=== PATIENT | female | born 1960 | race Caucasian/White ===

== ENCOUNTER 2025-05-30 06:24 | Day surgery (SDC) | payer MEDICARE, SELFPAY ==
[2025-05-30] VITALS (10 sets, daily range): BP systolic 105–148; BP diastolic 42–79; PULSE 67–103; RESP 12–20; TEMP 36.4–37; O2SAT 68–100
--- NOTE | ~2025-05-30 | XR_ITS ---
EXAMINATION: XR retrograde pyelo w/stent LT DATE: 05/30/2025 10:42 INDICATION: Stone at the left ureteropelvic junction TECHNIQUE: 118 images of the abdomen and pelvis were obtained during procedure performed by Dr. Spivey. Radiologist was not present for the imaging or procedure. The amount of fluoroscopy time used during this procedure was 0.4 minutes. Total DAP was 0.433 mGym^2. COMPARISON: CT dated 05/30/2025 FINDINGS: Tobacco Stripper images demonstrate some excreted contrast in the bilateral renal collecting systems, ureters and in the bladder. There appears be some extravasation of contrast in the left perinephric space. Subsequent images demonstrate advancement of a catheter into the left ureter to the renal pelvis with additional injected with no contrast demonstrating some contrast extravasation in the region of the ureteropelvic junction. Final images demonstrate placement of a left intraureteral stent with proximal loop formed in the left renal pelvis. IMPRESSION: 1. Left perinephric contrast extravasation which appears to occur in the region of the ureteropelvic junction which is likely related to previous noted stone at the ureteral pelvic junction. The stone is unable be clearly distinguished would correlate with procedure note as to whether the stone was visualized or extracted. 2. Placement of a left internal ureteral stent with proximal loop in expected position of the left renal pelvis. Reviewed, dictated and finalized at location A. IMPRESSION: 1. Left perinephric contrast extravasation which appears to occur in the region of the ureteropelvic junction which is likely related to previous noted stone at the ureteral pelvic junction. The stone is unable be clearly distinguished w ould correlate with procedure note as to whether the stone was visualized or ex tracted. 2. Placement of a left internal ureteral stent with proximal loop in expected p osition of the left renal pelvis.
--- NOTE | ~2025-05-30 | CT_ITS ---
EXAMINATION: CT abdomen pelvis w con DATE: 05/30/2025 08:04 INDICATION: Left lower quadrant abdominal pain. Left flank pain. Vomiting. TECHNIQUE: Computed tomography (CT) of the abdomen and pelvis was performed with 100 mL Omnipaque 350 intravenous contrast. Automated exposure control and iterative reconstruction technique were employed. The dose-length product was 280.05 mGy-cm. COMPARISON: None. FINDINGS: The visualized portions of lung bases demonstrate mild atelectasis. No pleural effusion. The heart size is normal. No pericardial effusion. There is a small sliding hiatal hernia. There is a 1.5 cm cyst in the liver. There are changes of cholecystectomy. The spleen, pancreas, adrenal glands, and right kidney are normal. There is a delayed left-sided contrast nephrogram. There is mild left hydronephrosis. There are 3 stones in left kidney measuring up to 3 mm. There is an 8 mm stone at left ureteropelvic junction. There is diverticulosis of the colon without evidence of diverticulitis. There are no dilated loops of bowel. The appendix is normal. There are no pathologically enlarged lymph nodes. There is no free intraperitoneal fluid. There is mild thoracic and lumbar spondylosis. IMPRESSION: 1. 8 mm stone at left ureteropelvic junction with mild left hydronephrosis. 2. Nonobstructing left kidney stones. Reviewed, dictated and finalized at location E.
[2025-05-30] MEDS: SODIUM CHLORIDE 0.9% IV 1,000 ML 999 ML IV CONT (06:58)
[2025-05-30] MEDS: ONDANSETRON INJ 4 MG/2 ML VIAL IV PUSH (06:59)
[2025-05-30 07:08] LABS: Hematocrit 41.3 % (37.0-47.0); Hemoglobin 13.5 g/dL (12.0-15.0); Immature Granulocyte Percent A 0.4 % (0-0.5); Lymphocytes Absolute Auto 1.32 K/mm3 (0.9-3.2); Mean Corpuscular HGB Conc 32.7 g/dl (32-36); Mean Corpuscular Hemoglobin 30.1 pg (26-34); Mean Corpuscular Volume 92.0 fl (80-100); Nucleated Red Blood Cells Absolute Auto 0.000 K/mm3 (0.0-0.012); Nucleated Red Blood Cells Perc 0.0 % (0.0-0.2); Platelet Count Result 261 k/mm3 (150-375); Red Blood Count 4.49 M/mm3 (4.2-5.4); White Blood Count 10.7 K/mm3 (4.5-10.0)
--- NOTE | 2025-05-30 07:16 | ED.ABDPAIN ---
HPI - Abdominal Pain General Chief Complaint: Abdominal Pain Stated Complaint: LLQ abd pain Time Seen by Provider: 05/30/25 06:57 Source: patient and family Mode of arrival: ambulatory Limitations: no limitations History of Present Illness HPI narrative: Patient presents with report of acute onset left lower quadrant abdominal pain starting approximately 2:00 a.m.. She notes that the pain has been intermittent and occurring in this location as well as in her left flank though now seems to be occurring in both locations simultaneously. She said her bowel movements have not been very good recently. Her last colonoscopy was more than 10 years ago but the she did recently undergo Cologuard. She has been having trouble passing gas although when this 1st started having pain she thought she just needed to pass gas and had been walking around try to help that. She has had multiple episodes of emesis which she describes as orange and brownish in color but denies any coffee-grounds. Denies any diarrhea, hematuria or dysuria. She says she may have trace hematuria. She has a history of kidney stone on the left at which time she had marked hematuria. She says this pain feels slightly similar although it had not been intense when she had a kidney stone before. Previous abdominal surgeries include coli cystectomy. She takes 81 mg aspirin but otherwise is not on anticoagulation. Last oral intake was dinner at 9:00 p.m. when she had a turkey sandwich. Related Data Allergies Allergy/AdvReac Type Severity Reaction Status Date / Time amoxicillin Allergy Unknown Other Verified 05/30/25 06:29 cephalexin Allergy Unknown Other Verified 05/30/25 06:29 erythromycin base Allergy Unknown Other Verified 05/30/25 06:29 Sulfa (Sulfonamide Allergy Unknown Other Verified 05/30/25 06:29 Antibiotics) tetracycline Allergy Unknown Unknown Verified 05/30/25 06:29 [facility] Past Medical History Medical History Heart disease High cholesterol History of cardiovascular stress test Status post hysteroscopy removal of polyp in endometrium and DNC, benign; also 06/24/17 H/O Graves' disease radioactive iodine Tx 1995 or 1996 Surgical History Surgical History S/P colonoscopy Hx of cholecystectomy 1999 S/P lumpectomy, left breast benign, 1992 or 1993 Exam Narrative: GENERAL: Well-appearing, well-nourished, in mild to moderate acute distress. HEAD: Normocephalic, atraumatic. EYES: Non injected, non icteric ENT: Nares clear, no rhinorrhea or epistaxis. Gross auditory acuity intact. NECK: Supple. No meningismus. CHEST: Speaking in full sentences. No respiratory distress. HEART: Regular rate and rhythm. . ABDOMEN: Soft, nondistended. Tenderness palpation left lower quadrant with some guarding. Not peritoneal EXTREMITIES: Normal range of motion. No lower extremity edema. SKIN: Warm, dry, no rash. NEURO: No focal deficits. Alert and oriented. Answering questions. Following commands. Normal speech without aphasia or dysarthria. PSYCH: Normal mood and affect. Course Vital Signs Vital signs: Vital Signs Temperature 97.6 F 05/30/25 06:31 Pulse Rate 67 05/30/25 06:31 Respiratory Rate 18 05/30/25 06:31 Blood Pressure 105/42 L 05/30/25 06:31 Pulse Oximetry 98 05/30/25 06:31 Oxygen Delivery Room Air 05/30/25 06:31 Temperature 98.6 F 05/30/25 10:10 Pulse Rate 101 H 05/30/25 10:10 Respiratory Rate 12 05/30/25 07:36 Blood Pressure 143/79 H 05/30/25 10:10 Pulse Oximetry 100 05/30/25 10:10 Oxygen Delivery Room Air 05/30/25 10:10 MDM - Abdominal Pain MDM Narrative Medical decision making narrative: Patient presents with acute onset left lower quadrant and left flank pain. In the emergency department she is afebrile, her vital signs are notable for low diastolic blood pressure, mean arterial pressure 63 mm Hg. It is improved at bedside at the time of my exam (154/108, MAP 118mmHg). IV fluids and Zofran initially ordered from triage. CBC with a mild leukocytosis. INR 1.0. Normal lactic acid. Analgesic medication CT scan ordered. Initially 4 mg morphine had been ordered although patient reports that she has never received this before and she is nervous. Discuss that pain control is important especially given the need for CT imaging inability to hold still for this. Discussed with nurse at bedside and patient received 2 mg morphine to start that if additional pain control is necessary, additional 2 mg. Isolated azotemia with an elevated BUN however creatinine is within normal limits. No prior for comparison. Urinalysis turbid but with only microscopic hematuria. Still having pain; dilaudid ordered. Patient informed on findings on CT. Spoke with Urology PA working with Dr Spivey at 9:05am via phone. PA did come to ED and discuss with patient at bedside. Plan is for ureteral stenting this morning/afternoon with Dr Spivey, likely home after. Will let me know if tamsulosin and/or ketorolac this morning. No need for additional analgesic medication right now as patient is comfortable. Patient taken to the OR. Differential Diagnosis Differential diagnosis: Likely abdominal pain, calculus of kidney, constipation, diverticulitis, small bowel obstruction and other (UTI, pyelonephritis, renal abscess) Lab Data Attestation: I reviewed the patient's lab results. Lab results narrative: CRP and lipase within normal limits 05/30/25 06:55 05/30/25 06:55 Labs: Lab Results 05/30/25 Range/Units 06:55 WBC 10.7 H (4.5-10.0) K/mm3 RBC 4.49 (4.2-5.4) M/mm3 Hgb 13.5 (12.0-15.0) g/dL Hct 41.3 (37.0-47.0) % MCV 92.0 (80-100) fl MCH 30.1 (26-34) pg MCHC 32.7 (32-36) g/dl RDW 13.2 (11.5-14.5) % Plt Count 261 (150-375) k/mm3 MPV 9.5 (7.4-10.4) fl Immature Gran % (Auto) 0.4 (0-0.5) % Neut % (Auto) 82.0 H (45.5-73.1) % Lymph % (Auto) 12.3 L (18.3-44.2) % [place] % (Auto) 4.6 (2.6-8.5) % Eos % (Auto) 0.3 (0-4.4) % Baso % (Auto) 0.4 (0.2-1.2) % Lymph # (Auto) 1.32 (0.9-3.2) K/mm3 [place] # (Auto) 0.5 (0.1-0.6) K/mm3 Eos # (Auto) 0.0 (0-0.3) K/mm3 Baso # (Auto) 0.0 (0.0-0.1) K/mm3 Abs Immat Gran (auto) 0.04 H (0.00-0.031) K/mm3 Absolute Neuts (auto) 8.8 H (1.3-6.7) K/mm3 Absolute Nucleated RBC 0.000 (0.0-0.012) K/mm3 Nucleated RBC % 0.0 (0.0-0.2) % PT 12.9 (11.1-14.7) Seconds INR 1.0 APTT 24.5 (22.3-36.8) Seconds Sodium 139 (137-145) mmol/L Potassium 3.7 (3.4-5.0) mmol/L Chloride 106 (98-107) mmol/L Carbon Dioxide 25 (22-30) mmol/L Anion Gap 8 (4-12) mmol/L BUN 27 H (7-17) mg/dL Creatinine 0.96 (0.7-1.0) mg/dL Estim Creat Clear Calc 43 ml/min Estimated GFR 58 L (59 - ) Glucose 127 H (65-110) mg/dL Lactic Acid 1.6 (0.7-2.0) mmol/L Calcium 9.5 (8.4-10.2) mg/dL Magnesium 2.0 (1.6-2.3) mg/dL Total Bilirubin 0.3 (0.2-1.3) mg/dL AST 32 (14-36) U/L ALT 23 (6-35) U/L Alkaline Phosphatase 87 (38-126) U/L C-Reactive Protein < 0.5 (<1.0) mg/dL Total Protein 6.6 (6.3-8.2) g/dL Albumin 4.1 (3.5-5.1) g/dL Lipase 171 (23-300) U/L Urine Color Yellow (Yellow) Urine Appearance Turbid H (Clear) Urine pH 8.0 (5.0-9.0) Ur Specific [place] 1.013 (1.001-1.035) Urine Protein Negative (Negative) mg/dL Urine Glucose (UA) Negative (Negative) mg/dL Urine Ketones Negative (Negative) mg/dL Ur Blood (Man) Trace (Negative) Urine Nitrate Negative (Negative) Urine Bilirubin Negative (Negative) Urine Urobilinogen 0.2 (<2.0) mg/dL Leukocyte Esterase Rfl Negative (Negative) [place]/UL Urine RBC 3-5 H (0-2) /hpf Urine WBC 0-5 (0-3) /hpf Ur Squamous Epith Cells None seen (Few) /hpf Urine Bacteria None seen /hpf Urine Casts 0-2 Imaging Data Radiologist's impression: ITS Impressions Abdomen/Pelvis CT 05/30/25 08:21 IMPRESSION: 1. 8 mm stone at left ureteropelvic junction with mild left hydronephrosis. 2. Nonobstructing left kidney stones. Discharge Plan Discharge Clinical Impression: Acute left lower quadrant pain, Azotemia, Left flank pain, Microscopic hematuria, Ureteropelvic junction calculus, Hydronephrosis, left Patient Disposition: Still a Patient Condition: Stable
[2025-05-30 07:19] LABS: INR 1.0; Prothrombin Time 12.9 Seconds (11.1-14.7)
[2025-05-30 07:20] LABS: Partial Thromboplastin Time 24.5 Seconds (22.3-36.8)
[2025-05-30] MEDS: MORPHINE SULFATE (*CRX) 4 MG/ML INJ IV PUSH (07:36)
--- NOTE | 2025-05-30 07:36 | PC.NURSE ---
Patient requested to speak to Dr. Conley about morphine. Dr. Conley gave verbal order to give 2mg instead of 4mg to start, give the other 2mg if patient requests.
[2025-05-30 07:42] LABS: Alanine Aminotransferase 23 U/L (6-35); Albumin Level 4.1 g/dL (3.5-5.1); Alkaline Phosphatase 87 U/L (38-126); Anion Gap 8 mmol/L (4-12); Aspartate Amino Transferase 32 U/L (14-36); Bilirubin,Total 0.3 mg/dL (0.2-1.3); Blood Urea Nitrogen 27 mg/dL (7-17); CRP < 0.5 mg/dL (<1.0); Calcium 9.5 mg/dL (8.4-10.2); Carbon Dioxide 25 mmol/L (22-30); Chloride 106 mmol/L (98-107); Estimated CRCL calculation 43 ml/min; Estimated Glomerular Filt Rate 58; Glucose 127 mg/dL (65-110); Lipase 171 U/L (23-300); Magnesium 2.0 mg/dL (1.6-2.3); Potassium 3.7 mmol/L (3.4-5.0); Sodium 139 mmol/L (137-145); Total Protein 6.6 g/dL (6.3-8.2)
[2025-05-30 07:46] LABS: Add Urine Microscopic? YES; Appearance Urine Turbid (Clear); Glucose Urine UA Negative (Negative); Leukocyte Esterase Ur Negative LEU/UL (Negative); Nitrate Urine Negative (Negative); Non Pathogenic Casts 0-2; Specific Grav Ur 1.013 (1.001-1.035)
--- NOTE | 2025-05-30 08:12 | PC.NURSE ---
Patient requested 2mg of morphine from order.
[2025-05-30] MEDS: ACETAMINOPHEN 500 MG TABLET 1000 MG PO (08:27)
--- OUTSIDE RECORDS SUMMARY | 2025-05-30 08:47 | XMS_ITS | Encounter Summary ---
Author Organization [facility] Address [address] [place] [address] Care Team Providers Care Artificial Log Machine Operator Name Role Phone Carmen Robin MD Primary Care Provider [phone] Encounter Details Date Type Department Care Team (Late st Contact Info) Description 05/30/2000 Outpatient Historical [facility] - [facility] [address] [facility] [address] [place] [address] Wili Garcia MD [address] [facility] [address] [place] [address] Social History Tobacco Use Types Packs/Day Years Used Date Smoking Tobacco: Never Assessed Comments Unknown Sex and Gender Information Value Date Recorded Sex Assigned at Not on file Legal Sex Female 3:30 AM ASSEMBLER CAMPER Gender Identity Not on file Sexual Orientation Not on file documented as of this encounter Plan of Treatment Upcoming Encounters Date Type Department Care Team (Late st Contact Info) Description 10/24/2025 11:20 AM CDT Office Visit [facility] [address] [address] Carmen Robin MD [address] [place] [phone] documented as of this encounter Visit Diagnoses Not on filedocumented in this encounter Care Teams Artificial Log Machine Operator Relationship Specialty Start Date End Date Carmen Robin MD [address] [place] [phone] PCP - General Family Practice 10/16/23 documented as of this encounter
--- OUTSIDE RECORDS SUMMARY | 2025-05-30 08:47 | XMS_ITS | Encounter Summary ---
Author Organization [facility] Address [address] [place] [address] Care Team Providers Care Ice Cream Truck Driver Name Role Phone Carmen Robin MD Primary Care Provider [phone] Encounter Details Date Type Department Care Team (Late Contact Info) Description 06/21/1999 Outpatient Historical [facility] Internal [facility] - [facility] [address] [facility] [address] [place] [address] Wili Garcia MD [address] [facility] [address] [place] [address] Social History Tobacco Use Types Packs/Day Years Used Date Smoking Tobacco: Never Assessed Comments Unknown Sex and Gender Information Value Date Recorded Sex Assigned at Not on file Legal Sex Female 3:30 AM PEDIATRIC ASSISTANT Gender Identity Not on file Sexual Orientation Not on file documented as of this encounter Plan of Treatment Upcoming Encounters Date Type Department Care Team (Late st Contact Info) Description 10/24/2025 11:20 AM CDT Office Visit [facility] [address] [address] Carmen Robin MD [address] [place] [phone] documented as of this encounter Visit Diagnoses Not on filedocumented in this encounter Care Teams Ice Cream Truck Driver Relationship Specialty Start Date End Date Carmen Robin MD [address] [place] [phone] PCP - General Family Practice 10/16/23 documented as of this encounter
--- OUTSIDE RECORDS SUMMARY | 2025-05-30 08:47 | XMS_ITS | Encounter Summary ---
Author Organization [facility] Address [address] [place] [address] Care Team Providers Care Loss Prevention Auditor Name Role Phone Carmen Robin MD Primary Care Provider [phone] Encounter Details Date Type Department Care Team (Late Contact Info) Description 07/05/1999 Outpatient Historical [facility] Internal Medicine - [facility] [address] [place] [address] Wili Garcia MD [address] [place] [phone] Social History Tobacco Use Types Packs/Day Years Used Date Smoking Tobacco: Never Assessed Comments Unknown Sex and Gender Information Value Date Recorded Sex Assigned at Not on file Legal Sex Female 3:30 AM MARRIAGE AND FAMILY COUNSELOR Gender Identity Not on file Sexual Orientation Not on file documented as of this encounter Plan of Treatment Upcoming Encounters Date Type Department Care Team (Late st Contact Info) Description 10/24/2025 11:20 AM CDT Office Visit [facility] Primary Care [address] [address] Carmen Robin MD [address] [place] [phone] documented as of this encounter Visit Diagnoses Not on filedocumented in this encounter Care Teams Loss Prevention Auditor Relationship Specialty Start Date End Date Carmen Robin MD [address] [place] [phone] PCP - General Family Practice 10/16/23 documented as of this encounter
--- OUTSIDE RECORDS SUMMARY | 2025-05-30 08:47 | XMS_ITS | Clinical Summary ---
Author Organization [facility] Address [address] [place] [address] Care Team Providers Care Advertising Campaign Manager Name Role Phone Unavailable Primary Care Provider Unavailabl e Source Comments [facility],non-owned Affiliates and Associated Physician Practices is amultiple site organization consisting of ambulatory clinics and hospital sitesin [place], [place], [place] and [place]. This disclosure is being madepursuant to the Care Everywhere program and may not contain all information available regarding this patient. 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 Gender Identity Not on file Sexual Orientation Not on file Plan of Treatment Health Maintenance Due Date Last Done Comments BONE DENSITY TESTING 1959 COLOGUARD (AGES 45-75) - COL ON CA SCREENING 1959 COLON MONITORING 1959 COLONOSCOPY - COLON CA SCREENING 1959 CT COLONOGRAPHY - COLON CA SCREENING 1959 Colorectal Cancer Screening 1959 FIT - COLON CA SCREENING 1959 FLEX SIG - COLON CA SCREENING 1959 LIPID TESTING 1959 MAMMOGRAM 1959 HIV SCREENING 1974 HEPATITIS C SCREENING 07/15/1977 DTAP/TDAP/TD VACCINES (1 - Tdap) 1978 PNEUMOCOCCAL VACCINE 50+ (1 of 1 - PCV) 2009 ZOSTER VACCINE (1 of 2) 2009 DEPRESSION SCREENING 08/18/2024 COVID-19 VACCINE (1 - 2023-2 5 season) 2025 INFLUENZA VACCINE (#1) 2025 Respiratory Syncytial Virus (RSV) Vaccine Pt: or over 60 yrs (1 - 1-dose 75+ series) 2034 HEPATITIS B VACCINE Aged Out No longe r eligible based on patient's age to complete this topic HIB VACCINE Aged Out No longer eligi ble based on patient's age to complete this topic HPV VACCINE Aged Out No longer eligi ble based on patient's age to complete this topic MENINGOCOCCAL (Group B) VACC INE SHARED DECISION-MAKING Aged Out No longer eligibl e based on patient's age to complete this topic MENINGOCOCCAL GROUPS A/C/Y/W VACCINE Aged Out No longer eligible b ased on patient's age to complete this topic
--- OUTSIDE RECORDS SUMMARY | 2025-05-30 08:47 | XMS_ITS | Encounter Summary ---
Author Organization [facility] Address [address] [place] [address] Care Team Providers Care Regulatory Consultant Name Role Phone Carmen Robin MD Primary Care Provider [phone] Encounter Details Date Type Department Care Team (Late Contact Info) Description 09/20/1999 Outpatient Historical [facility] Internal Medicine - [facility] [address] [place] [address] Wili Garcia MD [address] [facility] [address] [place] [phone] Social History Tobacco Use Types Packs/Day Years Used Date Smoking Tobacco: Never Assessed Comments Unknown Sex and Gender Information Value Date Recorded Sex Assigned at Not on file 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 Gender Identity Not on file Sexual Orientation Not on file documented as of this encounter Plan of Treatment Upcoming Encounters Date Type Department Care Team (Late st Contact Info) Description 10/24/2025 11:20 AM CDT Office Visit [facility] Primary Care [address] [phone] Carmen Robin MD [address] [place] [phone] documented as of this encounter Visit Diagnoses Not on filedocumented in this encounter Care Teams Regulatory Consultant Relationship Specialty Start Date End Date Carmen Robin MD [address] [place] [phone] PCP - General Family Practice 10/16/23 documented as of this encounter
--- OUTSIDE RECORDS SUMMARY | 2025-05-30 08:47 | XMS_ITS | Encounter Summary ---
Author Organization [facility] Address [address] [place] [address] Care Team Providers Care Model Maker Name Role Phone Carmen Robin MD Primary Care Provider [phone] Encounter Details Date Type Department Care Team (Late Contact Info) Description 09/01/2024 Results Follow-Up [facility] [address] [place] [address] Carmen Robin MD [address] [place] [phone] MAMMO 3D LARRY SCREEN BILAT W OR WO CAD Social History Tobacco Use Types Packs/Day Years Used Date Smoking Tobacco: Never Smokeless Tobacco: Never Comments:Never smoked. Alcohol Use Standard Drinks/Week Comments Yes 0 (1 standard drink = 0.6 oz pure alcohol) Occasionally glass of wine / kian (1 every few months). 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 Gender Identity Not on file Sexual Orientation Not on file Occupation Industry Job Start Date Job End Date Not on file Not on file Not on file Not on file documented as of this encounter Plan of Treatment Upcoming Encounters Date Type Department Care Team (Late st Contact Info) Description 10/24/2025 11:20 AM CDT Office Visit [facility] [address] [place] [address] Carmen Robin MD [address] [place] [phone] documented as of this encounter Visit Diagnoses Not on filedocumented in this encounter Care Teams Model Maker Relationship Specialty Start Date End Date Carmen Robin MD [address] [place] [phone] PCP - General Family Practice 10/16/23 documented as of this encounter
--- OUTSIDE RECORDS SUMMARY | 2025-05-30 08:47 | XMS_ITS | Encounter Summary ---
Author Organization [facility] Address 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 Gender Identity Not on file Sexual Orientation Not on file documented as of this encounter Plan of Treatment Upcoming Encounters Date Type Department Care Team (Late st Contact Info) Description 10/24/2025 11:20 AM CDT Office Visit [facility] Primary [facility] [address] [address] Carmen Robin MD [address] [place] [phone] documented as of this encounter Visit Diagnoses Not on filedocumented in this encounter Care Teams Funeral Car Chauffeur Relationship Specialty Start Date End Date Carmen Robin MD [address] [place] [phone] PCP - General Family Practice 10/16/23 documented as of this encounter
--- OUTSIDE RECORDS SUMMARY | 2025-05-30 08:48 | XMS_ITS | Clinical Summary ---
Author Organization [facility] Address [address] [facility] [address] [facility] [place] [address] Care Team Providers Care Odd Job Worker Name Role Phone Pablo Morales MD Primary Care Provider [phone] Allergies Active Allergy Reactions Criticality Noted Date Comments Amoxicillin Cephalexin Rash Medium 01/30/2018 Erythromycin Unknown 09/07/2012 Penicillins Sulfa (Sulfonamide Antibiotics) Rash Medium 01/16 Tetracycline Medications aspirin 81 mg tablet Active omega 6-fsw-pod-fish oil 100-160-1,000 mg capsule Active SYNTHROID 75 mcg tablet 8 Active liothyronine (CYTOMEL) 5 mcg tablet 8 Active multivitamin tabletIndicatio ns:Vitamin Deficiency Prevention Active ascorbic acid (VITAMIN C) 500 mg tablet,chewable Acti ve vitamin E (AQUASOL E) 100 unit capsule Active vit D3-vit D-ysclkvolu-mrk s [phone] ommc-itc-vy-mg tablet Take by mouth. Activ e coenzyme Q10 10 mg capsule Take 1 capsule (10 mg total) by mouth daily Active DIINDOLYLMETHAN E, BULK, MISC DIM supplement capsules BID PO Active DivigeL 1.25 mg/1.25 gram (0.1 %) gel in packet APPLY 1 PACKET TOPICALLY TO THE AFFECTED AREA DAILY 1 Active ezetimibe (ZETIA) 10 mg tablet Take 1 tablet (10 mg total) by mouth daily 2 Active lutein 20 mg tablet mg, tablet(s), 0 1 Active acetaminophen (TYLENOL) 500 mg tablet Take 2 tablets (1,000 mg total) by mouth every 6 (six) hours as needed 3 Active Ca carb-D3-mag xh-zso-aoku-Zn (Caltrate-D3 Plus Minerals) 300 mg-20 mcg- 25 mg-0.5 mg tablet Take 2 tablets by mouth daily 3 Active DOCOSAHEXAENOIC ACID ORAL Take 1 capsule by mouth daily 3 Active Repatha SureClick 140 mg/mL pen injector ADMINISTER 1 ML UNDER THE SKIN EVERY 14 DAYS 3 Active ibuprofen 200 mg tab/cap Take 2 tablet/capsule (400 mg total) by mouth 3 (three) times a day as needed 3 Active krill oil 500 mg capsule Take 1,500 mg by mouth daily 3 Active mv,Ca,min-folic acid-vit K1 (One-A-Day Women's 50 Plus) 400-20 mcg tablet Take 1 tablet by mouth daily 3 Active protein powder Take 2 Scoops by mouth daily 3 Active raloxifene (EVISTA) 60 mg tablet Take 1 tablet (60 mg total) by mouth daily 2 Active zinc gluconate 50 mg tablet Take 1 tablet (50 mg total) by mouth daily 3 Active FIRST-PROGESTER ONE VGS 50 VAGL Take 50 mg by mouth daily 3 Active calcium carbonate-vitam in D3 (CALTRATE 600 + D) 1500 mg (600 mg elemental) -400 units per tablet 4 Active latanoprost (XALATAN) 0.005 % ophthalmic solution Administer 1 drop into both eyes nightly 7.5 mL 5 Active Active Problems Problem Noted Date Diagnosed Date 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 S/p DAVEY. CTM Punctate keratopathy 11/05/2021 Assessment & Plan (11/05/2021 2:10 PM CDT): Mild, vision symptoms resolved with pinhole. Rec ATs PRN History of COVID-19 08/14/2021 Hypothyroidism 08/14/2021 Primary open angle glaucoma (POAG) of both eyes, mild stage 01/30/2018 Assessment & Plan (01/31/2025 2:39 PM CDT): On 1 class Denies concerns HVF OU stable OCT OU stable Follow 6 months DFE Assessment & Plan (08/02/2024 4:18 PM REVIEW TRAINER): POAG OU Denies concerns IOP at goal Follow 6 months with HVF/OCT OU Assessment & Plan (12/15/2023 8:22 PM CDT): IOP at goal Testing stable Continue 1 class OU Follow 8 months for IOP check Assessment & Plan (06/02/2023 4:46 PM CDT): Mild POAG OU - IOP at goal on 1 class - Last visit w/ OCT OU stable from 2020 - Last visit w/ HVF OU stable without peripheral vision defect Plan - follow-up 6 months with OCT OU and HVF 24-2 OU - CCM Assessment & Plan (11/18/2022 4:23 PM CDT): Mild POAG OU - IOP at goal on 1 class - OCT OU stable from 2020 - HVF OU stable without peripheral vision defect - follow 6 months with DFE Assessment & Plan (05/20/2022 2:34 PM CDT): POAG OU - doing well - IOP at goal - follow on 1 class - follow 6 months with HVF/OCT OU Assessment & Plan (11/05/2021 2:22 PM CDT): Tmax 20/19,+ FHx, prior progression of OCT thinning, Goal likely <18 Stable full HVF, OCT stable 5+ years, at goal on 1 class Continue xal QHS RTC 6 months for IOP check, 1 year w/ HVF and OCT RNFL Assessment & Plan (05/01/2021 6:10 PM CDT): IOP at goal both eyes on 1 class DFE stable Follow 6 months with HVF OU, sooner for concerns Assessment & Plan (10/23/2020 6:31 PM REVIEW TRAINER): HVF remains normal OCT with concern for possible progression Given IOP at goal and full field, ok to continue to observe for now Plan to continue 1 class, follow 6 months with DFE Testing anually Drops: - Latanoprost QHS OU Assessment & Plan (04/10/2020 3:48 PM CDT): Patient returns for 6 MO with Alanis visual field (HVF) normal both eyes (OU). OCT some thinning both eyes. Asymmetry of disc size. Some slight change to OCT over past 3-4 years. Questionably progressive. IOP's acceptable on 1 class today Follow for now Follow with OCT/HVF in 6 months Drops: - Latanoprost QHS OU Assessment & Plan (07/06/2019 10:44 AM REVIEW TRAINER): No e/o AMD OU Assessment & Plan (06/10/2019 10:18 AM CDT): Patient returns for 6 MO with Alanis visual field (HVF) normal both eyes (OU). OCT some thinning both eyes. Asymmetry of disc size. Some slight change to OCT over past 3-4 years. Questionably progressive. IOP's acceptable on 1 class () Patient will follow with Apte soon. Drops: - Latanoprost QHS OU Assessment & Plan (01/21/2019 12:31 PM CDT): Patient returns today for dilated exam. No change. IOP's are stable on 1 class, CPM. DROPS: - Latanoprost at bedtime (QHS) I have examined the patient and agree with the resident/fellow's findings and plan as documented. Mark Anthony Byers MD Family history of coronary artery disease 2016 Family history of breast cancer 04/29/2013 Overview (11/05/2021): Cousin from breast cancer, aunt breast cancer survivor (cousin's mother). Erika's BRC-[address] Test [address] Vinicius Aguillon. Hx of Graves' disease 09/07/2012 Overview (11/05/2021): Synthroid 75 mcg daily, DAVEY treatment 1995 Senile incipient cataract of both eyes 0 Assessment & Plan (01/31/2025 2:39 PM CDT): BAT 20/25 - not yet VS Assessment & Plan (08/02/2024 4:18 PM REVIEW TRAINER): Not yet VS Assessment & Plan (06/02/2023 4:47 PM CDT): - Early glare symptoms - BAT to 20/30 OD and 20/25 OS. Not a surgical candidate as indicated by testing Plan - F/u in 6m w/ HVF 24-2 and OCT nerve OU - BAT next visit Assessment & Plan (11/18/2022 4:24 PM CDT): Early glare symptoms Continue to monitor for now BAT next visit Assessment & Plan (05/20/2022 2:34 PM CDT): Not yet VS Assessment & Plan (11/05/2021 2:01 PM CDT): NVS CTM Assessment & Plan (05/01/2021 6:10 PM CDT): BAT not significant at this time Assessment & Plan (07/06/2019 10:28 AM REVIEW TRAINER): Mild, NVS Observe Assessment & Plan (06/10/2019 10:17 AM CDT): Becoming visually significant. Patient is noticing halos around headlights when driving at night. Do not recommend sx at this time. Suggest trying monovision contacts (soft, disposable) before trying Lasik. CLARA Espinosa scribing for, and in the presence of, Mark Anthony Byers MD Assessment & Plan (01/20/2019 1:13 PM CDT): NVS CTM Medical History Medical History Date Comments Glaucoma Cataract Thyroid activity decreased Hyperlipemia Family History Medical History Relation Name Comments Coronary artery disease Father Chayo nary artery disease; Hyperlipidemia Father Hyperlipidemi a; Glaucoma Maternal Grandmother Blindness Mother Coronary artery disease Mother Chayo nary artery disease; Glaucoma Mother Hyperlipidemia Mother Hyperlipidemi a; Hypertension Mother Hypertension; Macular degeneration Mother Relation Name Status Comments Father Maternal Grandmother Mother Social History Tobacco Use Types Packs/Day Years Used Date Smoking Tobacco: Never Smokeless Tobacco: Never Comments Unknown Sex and Gender Information Value Date Recorded Sex Assigned at Not on file Legal Sex Female 8:22 PM REVIEW TRAINER Gender Identity Female 01/26/2025 10:40 PM CDT Sexual Orientation Straight 01/26/2025 10 :40 PM CDT Occupation Industry Job Start Date Job End Date Retired Not on file Not on file Not on file Obstetrics History Plan of Treatment Health Maintenance Due Date Last Done Comments Cervical Cancer Screening 1959 Colon Cancer Screening-Colonoscopy 1959 Depression Screening 1959 Fall Risk Assessment 1959 Hepatitis C Screening 1959 Hepatitis B Screening 1977 Pneumococcal vaccine 65+ (1 of 1 - PCV) 2009 Well Visit 65+ 2024 Covid-19 Vaccine (5 - 2024-2 6 season) 2025 08/06/2023, 01/07/2022, 10/28/2020, Additional history exists Influenza Vaccine (#1) 2025 Breast Cancer Screening-Mammogram 08/30/2025 08/30/2024, 08/30/2024, 12/25/2021 Osteoporosis Screening-Bone Density Scan 08/30/2026 08/30/2024, 08/30/2024, 07/06/2020, Additional history exists DTaP/Tdap/Td Vaccine (2 - Td or Tdap) 11/10/2031 11/09/2021 Zoster Vaccine Completed 11/22/2024, 05/30/[id number] Care Teams Odd Job Worker Relationship Specialty Start Date End Date Pablo Morales MD PCP - General 12/06/16
--- OUTSIDE RECORDS SUMMARY | 2025-05-30 08:48 | XMS_ITS | Clinical Summary ---
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 Gender Identity Not on file Sexual Orientation Not on file Plan of Treatment Health Maintenance Due Date Last Done Comments Colorectal Cancer Screening Colonoscopy (10 Years) 1959 Hepatitis C 1977 DTaP, Tdap and Td Vaccines ( 1 - Tdap) 1978 Mammogram Screening 1999 Pneumococcal Vaccine: 50+ Years (1 of 1 - PCV) 2009 Zoster Vaccines (1 of 2) 2009 Dexa Scan (General) 2024 COVID-19 Vaccine (3 - 2024-2 6 season) 2025 10/28/2020, 10/07/2020 Influenza Adult (#1) 2025 RSV Immunization or 60+ Years (1 - 1-dose 75+ series) 2034 Meningococcal B Vaccine Aged Out No l onger eligible based on patient's age to complete this topic Meningococcal Vaccine Aged Out No anand vincenzo eligible based on patient's age to complete this topic RSV Immunizations Under 20 Months Aged Out No longer eligible b ased on patient's age to complete this topic
--- OUTSIDE RECORDS SUMMARY | 2025-05-30 08:48 | XMS_ITS | Clinical Summary ---
Author Organization [facility] e Address [address] [place] [address] Care Team Providers Care Cleaning Supervisor Name Role Phone Carmen Robin MD Primary Care Provider [phone] Allergies Active Allergy Reactions Criticality Noted Date Comments Amoxicillin Unknown 09/07/2012 Cephalexin Rash Low 10/20/2014 Erythromycin Unknown 09/07/2012 Sulfa (Sulfonamide Antibiotics) Unknown 08/19 Tetracycline Unknown 09/07/2012 Medications cholecalciferol , vitamin D3, 1,000 unit Take 2,000 Units by mouth daily . Active aspirin (SHARON) 81 mg Oral Tab Take by mouth daily. Active vitamin E 400 unit Oral capsule Take 2 Caps by mouth daily. 60 Cap 3 3 Active latanoprost (XALATAN) 0.005 % solution Administer 1 Drop in both eyes daily at bedtime. 9 Active OTHER Bio identical Hormone Pellet 2 Active triamcinolone acetonide (KENALOG) 0.1 % Cream APPLY TO THE AFFECTED AREA TWICE DAILY FOR 2-3 DAYS FOLLOWING TREATMENT 3 Active alirocumab (Praluent Pen) 75 mg/mL Pen Injector 75 mg by subcutaneous (via wearable injector) route every 2 weeks. Updating med list. Do not fill. Please keep under Dr. Olivas. 6 mL 3 3 Active Additional Information Patient not taking.Reported on 05/25/2025 ascorbic acid, vitamin C, (VITAMIN C) 1,000 mg Tablet Take 1 Tablet (1,000 mg) by mouth daily. 3 Active mv,Ca,min-folic acid-vit K1 (One-A-Day Women's 50 Plus) 400-20 mcg Tablet Take 1 Tablet by mouth daily. 3 Active coenzyme q-10 (UBIQUINOL) 200 mg Capsule Take 0.5 Capsules (100 mg) by mouth daily. 3 Active zinc gluconate 50 mg Tablet Take 1 Tablet (50 mg) by mouth daily. 3 Active antiox. no.[id number] t-reji (I-Caps) 280-10-2 mg Capsule Take 1 Capsule by mouth daily. 3 Active krill oil 500 mg Capsule Take 1,500 mg by mouth daily. ( SHE TAKES AIMEE 800 MG 2 Q DAY) 3 Active lutein 20 mg Capsule Take 1 Capsule (20 mg) by mouth daily. (She takes 25 mg oral daily) 3 Active Protein Powder Take 2 Scoops by mouth daily. 3 Active ezetimibe (ZETIA) 10 mg tablet Take 1 Tablet (10 mg) by mouth daily. 90 Tablet 3 3 Active magnesium oxide 250 mg magnesium Tablet Take 1 Tablet (250 mg) by mouth daily. 3 Active calcium carbonate + vitamin D (CALTRATE+D) 600 mg-10 mcg (400 unit) Tablet 4 Active DOCOSAHEXAENOIC ACID ORAL Active raloxifene (EVISTA) 60 mg tabletIndicatio ns:Osteopenia of multiple sites TAKE 1 TABLET DAILY. 90 Tablet 3 5 Active Synthroid 75 mcg tablet Take 1 Tablet (75 mcg) by mouth daily in the morning. 100 Tablet 3 5 Active Repatha Syringe 140 mg/mL Syringe ADMINISTER 1 ML UNDER THE SKIN EVERY 14 DAYS 5 Active liothyronine (CYTOMEL) 5 mcg Tablet TAKE 1 AND 1/2 TABLETS DAILY ON AN EMPTY STOMACH *GREENSTONE/KATIE N* 5 Active Active Problems Problem Noted Date Diagnosed Date Atherosclerosis of [place] co ronary artery of [place] heart without angina pectoris 10/16/2023 Punctate keratopathy 11/05/2021 Overview (10/16/2023): Last Assessment & Plan: Mild, vision symptoms resolved with pinhole. 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 S/p DAVEY. CTM Hypovitaminosis D 08/14/2021 Hypothyroidism 08/14/2021 Primary open angle glaucoma (POAG) of both eyes, mild stage 01/30/2018 Overview (10/16/2023): Last Assessment & Plan: Mild POAG OU - IOP at goal on 1 - Last visit w/ OCT OU stable from 2020 - Last visit w/ HVF OU stable without peripheral vision defect Plan - follow-up 6 months with OCT OU and HVF 24-2 OU - CCM Family history of coronary artery disease 2016 Glaucoma 10/28/2016 Family history of breast cancer 04/29/2013 Overview (04/29/2013): Cousin from breast cancer, aunt breast cancer survivor (cousin's mother). Erika's BRC-[address] Vinicius Aguillon. Hx of Graves' disease 09/07/2012 Overview (09/07/2012): Synthroid 75 mcg daily, DAVEY treatment 1995 HLD (hyperlipidemia) 09/07/2012 Overview (10/16/2023): Onset 2007. Osteopenia 09/07/2012 Microhematuria 09/07/2012 Senile incipient cataract of both eyes 0 Overview (10/16/2023): Last Assessment & Plan: - Early glare symptoms - BAT to 20/30 OD and 20/25 OS. Not a surgical candidate as indicated by testing Plan - F/u in 6m w/ HVF 24-2 and OCT nerve OU - BAT next visit Resolved Problems Problem Noted Date Diagnosed Date Resolved Date History of COVID-19 08/14/2021 10/16/19 24 Chest pressure 06/28/2021 10/16/2023 Heart palpitations 06/28/2021 Low blood pressure reading 06/14/2018 0 10/16/2023 Irritable bowel syndrome with constipation 09/03/2017 10/16/2023 Shingles outbreak 11/25/2016 10/16/2023 Well woman exam without gynecological exam 09/07/2012 04/29/2013 Encounters Date Type Department Care Team Description 05/25/2025 8:40 AM CDT Office Visit [facility] [address] [place] [address] Carmen Robin MD Family history of breast cancer (Primary Dx); Change in voice; Poor balance 05/16/2025 Results Follow-Up [facility] [address] [place] [id number] Peggy Feldman PA-C COLON CANCER SCREEN, STOOL DNA 05/03/2025 External Device Data STL ABSTRACTION Provider, Abstract 04/26/2025 Telephone [facility] [address] [place] [address] Carmen Robin MD Primary Care Outreach 04/19/2025 External Device Data STL ABSTRACTION Provider, Abstract 04/12/2025 External Device Data STL ABSTRACTION Provider, Abstract 03/02/2025 External Device Data STL ABSTRACTION Provider, Abstract 03/02/2025 External Device Data STL ABSTRACTION Provider, Abstract 03/02/2025 External Device Data STL ABSTRACTION Provider, Abstract 03/01/2025 External Device Data STL ABSTRACTION Provider, Abstract from Last 3 Months Immunizations Immunization Administration Dates Next Due (ADACEL/BOOSTRIX)(10 YR UP) TDAP VACCINE, 0.5ML, IM 11/09/2021 (PFIZER)(12 YR UP) COVID-19 VACCINE - EMERGENCY USE AUTHORIZATION, MRNA, [id number](PF) 30 MCG/0.3 ML IM SUSP 01/07/2022 (PREVNAR 20)(6 WKS UP) PNEUM OCOCCAL CONJUGATE VACCINE 20-VALENT (PCV20), POLYSACCHARIDE [id number] CONJUGATE, ADJUVANT 0.5 ML (PF) IM 10/18/2024 (SHINGRIX)(50 YRS UP) ZOSTER VACCINE RECOMBINANT, 0.5 ML, IM 11/22/2024,05/30/2024 Family History Medical History Relation Name Comments Healthy Brother Yifan (1/2 brother) Watches c holesterol High Cholesterol Brother Yifan (1/2 brother) High cholestetol is under control. Heart Disease Father Stefan of a hear t attack at 58. High Cholesterol Father Stefan of hea rt attack at age 58. Breast Cancer Maternal Aunt Breast Cancer Maternal Cousin Kidney Disease Maternal Grandfather Juan of blocked kidneys in 1957. Hypertension Maternal Grandmother Zhanna High BP Stroke Maternal Grandmother Zhanna of second stroke at age 89. Heart Disease Mother Edilson Quadruple bypa ss Jun 2005 High Cholesterol Mother Edilson High choles tetol is under control. Hypertension Mother Edilson High BP Osteoporosis Mother Edilson Has done variou s treatments to help. Other Mother Edilson Glaucoma (Frank s in pressure that had trouble being controlled, caused loss off eyesight. Labor Mother Edilson requ ired early bed rest. Then, water broke 07-13-59, but not due until 09-03-59. Skin Cancer Mother Edilson MOHS Surgery fo r squamous cell carcinoma (left leg). Staging Technician also removed a squamous cell carcinoma (clean margins) on rt arm and Basal cell rt leg. Thyroid Disease Mother Edilson Goiter remov ed and parathyroid. Colon Cancer Other Heart Disease Paternal Grandfather Juan o f massive heart attack at age 79. Other Paternal Grandmother Hypertension Son Relation Name Status Comments Brothdi Saha (1/2 brother) Alive Father Gene (Age 58) [place] Maternal Aunt Alive Maternal Cousin Maternal Grandfather Juan Maternal Grandmother Zhanna Mother Edilson Alive Other Other Paternal Grandfather Juna Paternal Grandmother Son Social History Tobacco Use Types Packs/Day Years Used Date Smoking Tobacco: Never Passive Smoke Exposure: Never Smokeless Tobacco: Never Tobacco Cessation:Counseling Given: No Comments:Never smoked. Alcohol Use Standard Drinks/Week Comments Yes 0 (1 standard drink = 0.6 oz pure alcohol) Occasionally glass of wine / kian (1 every few months). 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 Gender Identity Not on file Sexual Orientation Not on file Occupation Industry Job Start Date Job End Date Not on file Not on file Not on file Not on file Last Filed Vital Signs Vital Sign Reading Time Taken Comments Blood Pressure 124/82 05/25/2025 8:30 AM CDT Pulse 74 05/25/2025 8:30 AM CDT Temperature 36.7 C (98 F) 05/25/2025 8:30 AM CDT Respiratory Rate 18 05/25/2025 8:30 AM CDT Oxygen Saturation 99% 05/25/2025 8:30 AM CDT Inhaled Oxygen Concentration - - Weight 60.3 kg (133 lb) 05/25/2025 8:30 AM CDT Height 160 cm (5' 3) 05/25/2025 8:30 AM CDT Body Mass Index 23.56 05/25/2025 8:30 AM CDT Plan of Treatment Upcoming Encounters Date Type Department Care Team (Late st Contact Info) Description 10/24/2025 11:20 AM CDT Office Visit [facility] Primary [facility] [address] [phone] Carmen Robin MD [address] [place] [phone] Health Maintenance Due Date Last Done Comments FIT/FOBT Q 1 YEAR (AUTO ORDER) 1977 FIT/FOBT Q 1 year 2004 Flex Sig/CT Colonography Q 5 years 2004 RSV VACCINE (60+ or ) (1 - Risk 60-74 years 1-dose series) 2019 COLORECTAL CANCER SCREENING (AUTO ORDER) 05/10/2023 05/10/2013 COLORECTAL SCREENING 05/15/2023 05/15/2013, 05/10/20 13 INFLUENZA VACCINE (#1) 2025 COVID-19 Vaccine (2024-09 6 season) 2025 08/06/2023, 01/07/2022, 10/28/2020, Additional history exists BREAST CANCER SCREENING 08/30/2025 08/30/19 25, 05/26/2023, 12/25/2021, Additional history exists Colorectal Cancer Screening 05/11/2028 FIT-DNA Q 3 years 05/11/2028 05/11/2025 FIT/ DNA Q 3 YEARS (AUTO ORDER) 05/11/2028 5, 05/11/2025 OSTEOPOROSIS SCREENING 08/30/2029 5, 07/06/2020, 07/06/2020, Additional history exists Colorectal Cancer Screening (AUTO ORDER) 05/11/2030 FLEX SIG/CT COLONOGRAPHY Q 5 YEARS (AUTO ORDER) 05/11/2030 05/11/2025, 05/11/2025 DTAP/TDAP/TD VACCINES (2 - T d or Tdap) 11/10/2031 11/09/2021 [place] Preventative Visit/Annual Wellness Visit Completed 10/18/2024, 10/16/2023, 11/11/2022, Additional history exists PNEUMOCOCCAL VACCINE 50+ YEARS Completed 10/18/2024 ZOSTER VACCINE Completed 11/22/2024, 05/30/2024 Procedures Procedure Name Priority Date/Time Associated Diagnosis Comments COLON CANCER SCREEN, STOOL DNA Routine 05/11/2025 3:01 PM CDT Colon cancer screening XR DEXA BONE DENSITY AXIAL 1 OR MORE SITES Routine 08/30/2024 8:53 AM 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 NEGATIVE TEST RESULT. A negative Cologuard result indicates a low likelihood that a colorectal cancer (CRC) or advanced adenoma (adenomatous polyps with more advanced pre-malignant features) is present. The chance that a person with a negative Cologuard test has a colorectal cancer is less than 1 in 1500 (negative predictive value >99.9%) or has an advanced adenoma is less than 5.3% (negative predictive value 94.7%). These data are based on a prospective cross-sectional study of 10,000 individuals at average risk for colorectal cancer who were screened with both Cologuard and colonoscopy. (Devonte Addison al, N Engl J Med 2014;370(14):0495-8538) The normal value (reference range) for this assay is negative. COLOGUARD RE-SCREENING RECOMMENDATION: Periodic colorectal cancer screening is an important part of preventive healthcare for asymptomatic individuals at average risk for colorectal cancer. Following a negative Cologuard result, the [place] Cancer Society and U.S. Multi-Society Task Force screening guidelines recommend a Cologuard re-screening interval of 3 years. References: [place] [employer] Guideline for Colorectal Cancer Screening: https://www.cancer.org/cancer/gfpgc-qwfzgj-ymdeql/dubmbbyhi-yaifhgrpe-mddfyzz/ac s-rec ommendations.html.; Demarcus DK, Gayle ANDERSEN, Soila MillerK, Colorectal Cancer Screening: Recommendations for Physicians and Patients from the U.S. Multi-Society Task Force on Colorectal Cancer Screening , Am J Gastroenterology 2017; 112:5035-4860. TEST DESCRIPTION: Composite algorithmic analysis of stool DNA-biomarkers with hemoglobin immunoassay. Quantitative values of individual biomarkers are not reportable and are not associated with individual biomarker result reference ranges. Cologuard is intended for colorectal cancer screening of adults of either sex, 45 years or older, who are at average-risk for colorectal cancer (CRC). Cologuard has been approved for use by the U.S. FDA. The performance of Cologuard was established in a cross sectional study of average-risk adults aged 50-84. Cologuard performance in patients ages 45 to 49 years was estimated by sub-group analysis of near-age groups. Colonoscopies performed for a positive result may find as the most clinically significant lesion: colorectal cancer [4.0%], advanced adenoma (including sessile serrated polyps greater than or equal to 1cm diameter) [20%] or non- advanced adenoma [31%]; or no colorectal neoplasia [45%]. These estimates are derived from a prospective cross-sectional screening study of 10,000 individuals at average risk for colorectal cancer who were screened with both Cologuard and colonoscopy. (Devonte Hedrick, N Engl J Med 2014;370(14):8207-1339.) Cologuard may produce a false negative or false positive result (no colorectal cancer or precancerous polyp present at colonoscopy follow up). A negative Cologuard test result does not guarantee the absence of CRC or advanced adenoma (pre-cancer). The current Cologuard screening interval is every 3 years. ([place] Cancer Society and U.S. Multi-Society Task Force). Cologuard performance data in a 10,000 patient pivotal study using colonoscopy as the reference method can be accessed at the following location: www.[employer]/results. Additional description of the Cologuard test process, warnings and precautions can be found at www.[employer].rurd.[employer]. Stool STOOL SPECIMEN / Unknown 05/11/2025 3:01 PM CDT 05/12/2025 5:24 PM CDT Carmen Robin MD BODY FLUIDS AND STOOLS Final Result [employer] CLIA # [id number] [address] [facility], [address] [place] [address] * XR DEXA BONE DENSITY AXIAL 1 OR MORE SITES (08/30/2024 8:53 AM ORGAN PIPE FINISHER) T-SCORE FEMUR [facility] T-SCORE FEMUR (LEFT) [facility] T-SCORE FEMUR (RIGHT) [facility] T-SCORE FEMUR NECK [facility] T-SCORE FEMORAL NECK (LEFT) [facility] T-SCORE FEMORAL NECK (RIGHT) [facility] T-SCORE HEEL [facility] T-SCORE HEEL (LEFT) [facility] T-SCORE HEEL (RIGHT) [facility] T-SCORE [facility] T-SCORE HIP (LEFT) [facility] T-SCORE HIP (RIGHT) [facility] T-SCORE WRIST [facility] T-SCORE WRIST (LEFT) [facility] I[facility] T-SCORE WRIST (RIGHT) [facility] I[facility] T-SCORE SPINE [facility] I[facility] Anatomical Region Laterality Modality Other 08/30/2024 8:53 AM 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 Result Mamta Robin MD DIAGNOSTIC IMAGING ORDERABLES Edited Result - Final * MAMMO 3D LARRY SCREEN BILAT W OR WO CAD (08/30/2024) Anatomical Region Laterality Modality Breast Bilateral Mammography 08/30/2024 us Carmen Robin MD MAMMO ORDERABLES Final Result from Last 3 Months or Most Recently Relevant to Health Maintenance Insurance Advance Directives For more information, please contact: [phone] * Full Code (Latest Code Status on File) Date Activated Date Inactivated Comments 05/10/2013 12:33 PM 05/10/2013 4:43 PM Care Teams Cleaning Supervisor Relationship Specialty Start Date End Date Carmen Robin MD [address] [place] [phone] PCP - General Family Practice 10/16/23
[2025-05-30] MEDS: HYDROmorphone HCL INJ (*CRX) 1 MG/ML SYR 0.5 MG IV PUSH (08:57)
--- NOTE | 2025-05-30 09:54 | P.CONUR_ITS ---
Assessment and Plan Assessment and plan (1) Ureteropelvic junction calculus: Code(s): N20.1 - Calculus of ureter <WILFREDO Castillo - Last Filed: 05/30/25 10:07> Status: Acute <Jose ChrisWILFREDO Valentin - Last Filed: 05/30/25 10:07> (2) Hydronephrosis, left: Code(s): N13.30 - Unspecified hydronephrosis <WILFREDO Castillo - Last Filed: 05/30/25 10:07> Status: Acute <WILFREDO Castillo - Last Filed: 05/30/25 10:07> (3) Microscopic hematuria: Code(s): R31.29 - Other microscopic hematuria <WILFREDO Castillo - Last Filed: 05/30/25 10:07> Status: Acute <WILFREDO Castillo - Last Filed: 05/30/25 10:07> Assessment and Plan: - Reviewed CT findings with pt; given intractable pain with hydro and slightly elevated white count (10.7) recommend Left ureteral stent placement with definitive stone management to be discussed following on outpatient basis. Pt voices her understanding and agrees with plan. - Plan for cystoscopy, Left ureteral stent placement with Dr. Spivey this afternoon - Continue pain management as needed - Will tentatively plan to discharge patient home today after stenet placement < WILFREDO Castillo - Last Filed: 05/30/25 10:07> Urology Consult Note HPI Date Seen: 05/30/25 <WILFREDO Castillo - Last Filed: 05/30/25 10:07> 05/30/25 <Toy Spivey MD - Last Filed: 05/30/25 10:08> Requesting Physician: Toy Spivey MD <WILFREDO Castillo - Last Filed: 05/30/25 10:07> Primary Care Provider: PHYSICIAN NOT ON STAFF <WILFREDO Castillo - Last Filed: 05/30/25 10:07> Consult Narrative Narrative: Pt is a 64 year old F with PMHx of nephrolithiasis not previously requiring surgical intervention who presented to the ED for acute onset Left flank pain found to have 8 mm Left UPJ stone with mild Left hydronephrosis for whom urology is consulted for stone management. Pt states that at approximately 2 AM this morning she abruptly experienced severe Left flank pain with associated nausea and several episodes of vomiting. Unable to keep PO analgesics down at home and pain unrelenting prompting presentation to ED and found to have stone as above. Since this time pt has received 4 mg morphine which minimally improved pain; most recently received Dilaudid and reports significant relief currently. Denies gross hematuria, dysuria, F/C. Last ate 9 PM last night. < WILFREDO Castillo - Last Filed: 05/30/25 10:07> Review of Systems 2 Constitutional: Comments: Discomfort <WILFREDO Castillo - Last Filed: 05/30/25 10:07> ENT: Reports Normal hearing present <WILFREDO Castillo - Last Filed: 05/30/25 10:07> Respiratory: Respiratory: Denies dyspnea <WILFREDO Castillo - Last Filed: 05/30/25 10:07> Gastrointestinal: Gastrointestinal: Reports abdominal pain, Reports constipation, Reports nausea and Reports vomiting <WILFREDO Castillo - Last Filed: 05/30/25 10:07> Genitourinary: Genitourinary: Reports flank pain <WILFREDO Castillo - Last Filed: 05/30/25 10:07> Musculoskeletal: Musculoskeletal: Reports back pain, Denies myalgias, Denies arthralgias and Denies joint swelling <WILFREDO Castillo - Last Filed: 05/30/25 10:07> Neurologic: Denies Abnormal speech present and Denies abnormal gait <WILFREDO Castillo - Last Filed: 05/30/25 10:07> Psychiatric: Psychiatric: Denies behavioral changes and Denies confusion < WILFREDO Castillo - Last Filed: 05/30/25 10:07> [facility], [facility] Past Medical History Medical History: Medical History (Updated 05/30/25 @ 08:32 by Emma Conley MD) Heart disease High cholesterol History of cardiovascular stress test Status post hysteroscopy removal of polyp in endometrium and DNC, benign; also 06/24/17 H/O Graves' disease radioactive iodine Tx 1995 or 1996 <WILFREDO Castillo - Last Filed: 05/30/25 10:07> Surgical History Surgical History: Surgical History (Updated 05/30/25 @ 07:29 by Emma Conley MD) S/P colonoscopy Hx of cholecystectomy 1999 S/P lumpectomy, left breast benign, 1992 or 1993 <WILFREDO Castillo - Last Filed: 05/30/25 10:07> Meds Home Medications and Allergies Allergies/Adverse reactions: Allergies Allergy/AdvReac Type Severity Reaction Status Date / Time amoxicillin Allergy Unknown Other Verified 05/30/25 06:29 cephalexin Allergy Unknown Other Verified 05/30/25 06:29 erythromycin base Allergy Unknown Other Verified 05/30/25 06:29 Sulfa (Sulfonamide Allergy Unknown Other Verified 05/30/25 06:29 Antibiotics) tetracycline Allergy Unknown Unknown Verified 05/30/25 06:29 <WILFREDO Castillo - Last Filed: 05/30/25 10:07> Vital Signs Vital Signs - 24 hr 05/30/25 06:31 05/30/25 07:36 Temperature 36.4 C Pulse Rate 67 71 Respiratory Rate 18 12 Blood Pressure 105/42 L 148/74 H Pulse Oximetry 98 100 Oxygen Delivery Room Air <WILFREDO Castillo - Last Filed: 05/30/25 10:07> Exam 2 Const: General: no acute distress and uncomfortable <WILFREDO Castillo - Last Filed: 05/30/25 10:07> Eyes: General: appearance normal, both eyes and all related structures < WILFREDO Castillo - Last Filed: 05/30/25 10:07> Resp: Effort & Inspection: normal respiratory effort <WILFREDO Castillo - Last Filed: 05/30/25 10:07> : Other: Left CVA tenderness <WILFREDO Castillo - Last Filed: 05/30/25 10:07> Skin: General skin exam: normal color and no rashes or lesions noted < WILFREDO Castillo Last Filed: 05/30/25 10:07> Neuro: Speech: normal speech <WILFREDO Castillo - Last Filed: 05/30/25 10:07> Extrem: General: normal to inspection <Jose ChrisWILFREDO Valentin - Last Filed: 05/30/25 10:07> Psych: Speech and movement: Normal speech and movement present <WILFREDO Castillo Last Filed: 05/30/25 10:07> Results Labs CBC & Chem 7: 05/30/25 06:55 05/30/25 06:55 <WILFREDO Castillo Last Filed: 05/30/25 10:07> Labs: Short CBC 05/30/25 Range/Units 06:55 WBC 10.7 H (4.5-10.0) K/mm3 Hgb 13.5 (12.0-15.0) g/dL Hct 41.3 (37.0-47.0) % Plt Count 261 (150-375) k/mm3 BMP 05/30/25 06:55 Sodium 139 Potassium 3.7 Chloride 106 Carbon Dioxide 25 BUN 27 H Creatinine 0.96 Glucose 127 H Calcium 9.5 Liver Function 05/30/25 Range/Units 06:55 Total Bilirubin 0.3 (0.2-1.3) mg/dL AST 32 (14-36) U/L ALT 23 (6-35) U/L Alkaline Phosphatase 87 (38-126) U/L Albumin 4.1 (3.5-5.1) g/dL Urine 05/30/25 Range/Units 06:55 Urine Color Yellow (Yellow) Urine Appearance Turbid H (Clear) Urine pH 8.0 (5.0-9.0) Ur Specific [place] 1.013 (1.001-1.035) Urine Protein Negative (Negative) mg/dL Urine Glucose (UA) Negative (Negative) mg/dL <WILFREDO Castillo Last Filed: 05/30/25 10:07> Attestation Supervising Provider Attestation Patient seen and examined. Greater than 50% of medical decision-making was performed by myself. Agree with note above. Left 8 mm UPJ stone. Will plan on ureteral stent today. Definitive stone management to follow. Understands risks of bleeding, infection, damage to the urinary tract. Understands we will not be removing the stone today. If all goes well she is stable for discharge. We will call and arrange outpatient follow-up with stone management <Toy Spivey MD - Last Filed: 05/30/25 10:08>
--- NOTE | 2025-05-30 10:06 | WPDANESEPPF ---
Anes - Initial Pre Proc Eval Procedure: Operation Date: 05/30/25 10:30 Proposed Procedures p Cystoscopy, Left Stent - Toy Spivey MD Date/Time: 05/30/25 10:06 Surgeon: Toy Spivey MD Pre Op Diagnosis: LLQ abd pain Patient Data Age: 64 Gender: F Height: 1.6 m Weight: 58.1 kg Last Vital Signs Temp 36.4 C 05/30/25 06:31 Pulse 71 05/30/25 07:36 Resp 12 05/30/25 07:36 BP 148/74 H 05/30/25 07:36 Pulse Ox 100 05/30/25 07:36 O2 Del Method Room Air 05/30/25 06:31 Allergies Allergy/AdvReac Type Severity Reaction Status Date / Time amoxicillin Allergy Unknown Other Verified 05/30/25 06:29 cephalexin Allergy Unknown Other Verified 05/30/25 06:29 erythromycin base Allergy Unknown Other Verified 05/30/25 06:29 Sulfa (Sulfonamide Allergy Unknown Other Verified 05/30/25 06:29 Antibiotics) tetracycline Allergy Unknown Unknown Verified 05/30/25 06:29 Laboratory Tests 05/30/25 06:55 WBC 10.7 H K/mm3 (4.5-10.0) RBC 4.49 M/mm3 (4.2-5.4) Hgb 13.5 g/dL (12.0-15.0) Hct 41.3 % (37.0-47.0) MCV 92.0 fl (80-100) MCH 30.1 pg (26-34) MCHC 32.7 g/dl (32-36) RDW 13.2 % (11.5-14.5) Plt Count 261 k/mm3 (150-375) MPV 9.5 fl (7.4-10.4) Immature Gran % (Auto) 0.4 % (0-0.5) Neut % (Auto) 82.0 H % (45.5-73.1) Lymph % (Auto) 12.3 L % (18.3-44.2) Walton % (Auto) 4.6 % (2.6-8.5) Eos % (Auto) 0.3 % (0-4.4) Baso % (Auto) 0.4 % (0.2-1.2) Lymph # (Auto) 1.32 K/mm3 (0.9-3.2) Walton # (Auto) 0.5 K/mm3 (0.1-0.6) Eos # (Auto) 0.0 K/mm3 (0-0.3) Baso # (Auto) 0.0 K/mm3 (0.0-0.1) Abs Immat Gran (auto) 0.04 H K/mm3 (0.00-0.031) Absolute Neuts (auto) 8.8 H K/mm3 (1.3-6.7) Absolute Nucleated RBC 0.000 K/mm3 (0.0-0.012) Nucleated RBC % 0.0 % (0.0-0.2) PT 12.9 Seconds (11.1-14.7) INR 1.0 APTT 24.5 Seconds (22.3-36.8) Sodium 139 mmol/L (137-145) Potassium 3.7 mmol/L (3.4-5.0) Chloride 106 mmol/L (98-107) Carbon Dioxide 25 mmol/L (22-30) Anion Gap 8 mmol/L (4-12) BUN 27 H mg/dL (7-17) Creatinine 0.96 mg/dL (0.7-1.0) Estim Creat Clear Calc 43 ml/min Estimated GFR 58 L (59 - ) Glucose 127 H mg/dL (65-110) Lactic Acid 1.6 mmol/L (0.7-2.0) Calcium 9.5 mg/dL (8.4-10.2) Magnesium 2.0 mg/dL (1.6-2.3) Total Bilirubin 0.3 mg/dL (0.2-1.3) AST 32 U/L (14-36) ALT 23 U/L (6-35) Alkaline Phosphatase 87 U/L (38-126) C-Reactive Protein < 0.5 mg/dL (<1.0) Total Protein 6.6 g/dL (6.3-8.2) Albumin 4.1 g/dL (3.5-5.1) Lipase 171 U/L (23-300) Urine Color Yellow (Yellow) Urine Appearance Turbid H (Clear) Urine pH 8.0 (5.0-9.0) Ur Specific [place] 1.013 (1.001-1.035) Urine Protein Negative mg/dL (Negative) Urine Glucose (UA) Negative mg/dL (Negative) Urine Ketones Negative mg/dL (Negative) Ur Blood (Man) Trace (Negative) Urine Nitrate Negative (Negative) Urine Bilirubin Negative (Negative) Urine Urobilinogen 0.2 mg/dL (<2.0) Leukocyte Esterase Rfl Negative [place]/UL (Negative) Urine RBC 3-5 H /hpf (0-2) Urine WBC 0-5 /hpf (0-3) Ur Squamous Epith Cells None seen /hpf (Few) Urine Bacteria None seen /hpf Urine Casts 0-2 Patient hx anesthesia problems: none Family hx anesthesia problems: none Results Review: All pre-operative results and documents have been reviewed as part of the pre-operative evaluation. [facility] Past Medical History Medical History Heart disease High cholesterol History of cardiovascular stress test Status post hysteroscopy removal of polyp in endometrium and DNC, benign; also 06/24/17 H/O Graves' disease radioactive iodine Tx 1995 or 1996 Surgical History Surgical History S/P colonoscopy Hx of cholecystectomy 1999 S/P lumpectomy, left breast benign, 1992 or 1993 Anes - Eval Final PreProcedure Day of Procedure 05/30/25 10:06 Patient weight: normal Heart: regular rate and rhythm Lungs: clear to auscultation Airway: Mallampati scale class 1 Neurological: alert and oriented Last oral intake: >/= 8 hours ASA classification: III Emergent: no Anesthetic plan: proceed Anesthesia type and monitoring: general GIVS and standard monitoring Results Review: All pre-operative results and documents have been reviewed as part of the pre-operative evaluation. Informed Consent: The patient's anesthetic plan and its attendant risks and benefits were discussed with the patient/family/POA. Questions were solicited and answers provided to the satisfaction of the patient/family/POA.
--- NOTE | 2025-05-30 10:07 | PC.NURSE ---
Spouse of patient kept patient's belongings.
--- NOTE | 2025-05-30 10:08 | WPDHPUPDATE1 ---
History and Physical Update Update Date/Time: 05/30/25 10:08 History and Physical has been reviewed, including an updated exam of the patient. There are NO changes in the patient's condition. Risks, benefits, and alternatives have been discussed and questions answered. Patient agrees to proceed with procedure.
[2025-05-30] MEDS: LACTATED RINGERS 1,000 ML 30 ML IV CONT (10:13)
--- OUTSIDE RECORDS SUMMARY | 2025-05-30 10:18 | XMS_ITS | Encounter Summary ---
Author Organization [facility] Address [address] [place] [address] Care Team Providers Care Veterinary Technician Instructor Name Role Phone Carmen Robin MD Primary Care Provider [phone] Encounter Details Date Type Department Care Team (Late Contact Info) Description 06/21/1999 Outpatient Historical [facility] Internal Medicine - [facility] [address] [facility] [address] [place] [address] Wili Garcia MD [address] 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 Gender Identity Not on file Sexual Orientation Not on file documented as of this encounter Plan of Treatment Upcoming Encounters Date Type Department Care Team (Late st Contact Info) Description 10/24/2025 11:20 AM CDT Office Visit [facility] Primary Care [address] [phone] Carmen Robin MD [address] [place] [phone] documented as of this encounter Visit Diagnoses Not on filedocumented in this encounter Care Teams Veterinary Technician Instructor Relationship Specialty Start Date End Date Carmen Robin MD [address] [place] [phone] PCP - General Family Practice 10/16/23 documented as of this encounter
--- OUTSIDE RECORDS SUMMARY | 2025-05-30 10:18 | XMS_ITS | Clinical Summary ---
Author Organization [facility] Address [address] [place] [address] Care Team Providers Care Industrial Order Clerk Name Role Phone Carmen Robin MD Primary Care Provider [phone] Allergies Active Allergy Reactions Criticality Noted Date [...] Do not fill. Please keep under Dr. Olvias. 6 mL 3 3 Active Additional Information [...] mg) by mouth daily. 3 Active antiox. no.[id number]-oa t-reji (I-Caps) 280-10-2 mg Capsule Take 1 [...] Problem Noted Date Diagnosed Date Atherosclerosis of [place] co ronary artery of [place] heart without angina pectoris 10/16/2023 Punctate keratopathy [...] Description 05/25/2025 8:40 AM CDT Office Visit [facility] [place] [address] [place] [address] Carmen Robin MD Family history of breast cancer (Primary Dx); Change in voice; Poor balance 05/16/2025 Results Follow-Up [facility] [place] [address] [place] [phone] Peggy Feldman PA-C COLON CANCER SCREEN, STOOL DNA 05/03/2025 External Device Data STL ABSTRACTION Provider, Abstract 04/26/2025 Telephone [facility] [place] [address] [place] [address] Carmen Robin MD Primary Care Outreach 04/19/2025 [...] COVID-19 VACCINE - EMERGENCY USE AUTHORIZATION, MRNA, [id number](PF) 30 MCG/0.3 ML IM SUSP 01/07/2022 (PREVNAR 20)(6 WKS UP) PNEUM OCOCCAL CONJUGATE VACCINE 20-VALENT (PCV20), POLYSACCHARIDE [id number] CONJUGATE, ADJUVANT 0.5 ML (PF) IM 10/18/2024 [...] fo r squamous cell carcinoma (left leg). Fire Loss Prevention Engineer also removed a squamous cell carcinoma (clean margins) on rt arm and Basal cell rt leg. Thyroid Disease Mother Edilson Goiter remov ed and parathyroid. Colon Cancer Other Heart Disease Paternal Grandfather Juan o f massive heart attack at age 79. Other Paternal Grandmother Hypertension Son Relation Name Status Comments Brothdi Saha (1/2 brother) Alive Father Gene (Age 58) [place] Maternal Aunt Alive Maternal Cousin Maternal Grandfather Juan Maternal Grandmother Zhanna Mother Edilson Alive Other Other Paternal Grandfather Juan Paternal Grandmother Son Social History Tobacco Use [...] on file Legal Sex Female 3:30 AM CREDIT RISK MANAGEMENT DIRECTOR Gender Identity Not on file Sexual Orientation [...] Description 10/24/2025 11:20 AM CDT Office Visit [facility] Primary [facility] [address] [phone] Carmen Robin MD [address] [place] [phone] Health Maintenance Due Date Last Done [...] OR MORE SITES Routine 08/30/2024 8:53 AM CREDIT RISK MANAGEMENT DIRECTOR Osteopenia of multiple sites MAMMO 3D LARRY SCREEN BILAT W OR WO CAD Routine 08/30/2024 Screening mammogram, encounter for from Last 3 Months or Most Recently Relevant to Health Maintenance Results * COLON CANCER SCREEN, STOOL DNA (05/11/2025 3:01 PM CDT) COLOGUARD RESULT Negative Negative [employer] Comment: The Cologuard (TM) test was performed [...] (Devonte Addison al, N Engl J Med 2014;370(14):5470-8409) The normal value (reference range) for this assay is negative. COLOGUARD RE-SCREENING RECOMMENDATION: Periodic colorectal cancer screening is an important part of preventive healthcare for asymptomatic individuals at average risk for colorectal cancer. Following a negative Cologuard result, the [place] Cancer Society and U.S. Multi-Society Task Force screening guidelines recommend a Cologuard re-screening interval of 3 years. References: [place] [employer] Guideline for Colorectal Cancer Screening: https://www.cancer.org/cancer/vkvkk-hyweky-ulukap/lutyafeme-uorkgycic-ieduolr/ac s-rec ommendations.html.; Demarcus DK, Gayle ANDERSEN, Soila MillerK, Colorectal Cancer Screening: Recommendations for Physicians and Patients from the U.S. Multi-Society Task Force on Colorectal Cancer Screening , Am J Gastroenterology 2017; 112:8653-0845. TEST DESCRIPTION: Composite algorithmic analysis of stool [...] colonoscopy. (Devonte Hedrick, N Engl J Med 2014;370(14):5148-9985.) Cologuard may produce a false negative or false positive result (no colorectal cancer or precancerous polyp present at colonoscopy follow up). A negative Cologuard test result does not guarantee the absence of CRC or advanced adenoma (pre-cancer). The current Cologuard screening interval is every 3 years. ([place] [employer] Society and U.S. Multi-Society Task Force). Cologuard performance data in a 10,000 patient pivotal study using colonoscopy as the reference method can be accessed at the following location: www.[employer]/results. Additional description of the Cologuard test process, warnings and precautions can be found at www.[employer]my[employer].enVista. Stool STOOL SPECIMEN / Unknown 05/11/2025 3:01 PM CDT 05/12/2025 5:24 PM CDT Carmen Robin MD BODY FLUIDS AND STOOLS Final Result [employer] CLIA # [id number] [address] [facility], [address] [place] [address] * XR DEXA BONE DENSITY AXIAL 1 OR MORE SITES (08/30/2024 8:53 AM CREDIT RISK MANAGEMENT DIRECTOR) T-SCORE FEMUR [facility] T-SCORE FEMUR (LEFT) [facility] T-SCORE FEMUR (RIGHT) [facility] T-SCORE FEMUR NECK [facility] T-SCORE FEMORAL NECK (LEFT) [facility] T-SCORE FEMORAL NECK (RIGHT) [facility] T-SCORE HEEL [facility] T-SCORE HEEL (LEFT) [facility] T[facility]SCORE HEEL (RIGHT) [facility] T-SCORE HIP [facility] T-SCORE HIP (LEFT) [facility] T-SCORE HIP (RIGHT[facility] T-SCORE WRIST [facility] T-SCORE WRIST (LEFT) [facility] T-SCORE WRIST (RIGHT) [facility] T-SCORE [facility] Anatomical Region Laterality Modality Other 08/30/2024 8:53 AM CREDIT RISK MANAGEMENT DIRECTOR Result Mamta Robin MD DIAGNOSTIC IMAGING ORDERABLES Edited Result - Final * MAMMO 3D LARRY SCREEN BILAT W OR WO CAD (08/30/2024) Anatomical Region Laterality Modality Breast Bilateral Mammography 08/30/2024 us Carmen Robin MD MAMMO ORDERABLES Final Result from Last 3 Months or Most Recently Relevant to Health Maintenance [place] [facility] [facility] [place] Address: [address] [address] [facility] [place] Address: [address] [address] Advance Directives For more information, please contact: [phone] * Full Code (Latest Code Status on File) Date Activated Date Inactivated Comments 05/10/2013 12:33 PM 05/10/2013 4:43 PM Care Teams Industrial Order Clerk Relationship Specialty Start Date End Date Carmen Robin MD [address] [place] [phone] PCP - General Family Practice 10/16/23
--- OUTSIDE RECORDS SUMMARY | 2025-05-30 10:18 | XMS_ITS | Encounter Summary ---
Author Organization [facility] Address [address] [place] [address] Care Team Providers Care Television Audio Engineer Name Role Phone Carmen Robin MD Primary Care Provider [phone] Encounter Details Date Type Department Care Team (Late Contact Info) Description 09/20/1999 Outpatient Historical [facility] Internal Medicine - [facility] [address] [facility] [address] [facility] [place] [address] Wili Garcia MD [address] [facility] [address] [place] [phone] Social History Tobacco Use Types Packs/Day Years Used Date Smoking Tobacco: Never Assessed Comments Unknown Sex and Gender Information Value Date Recorded Sex Assigned at Not on file 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 Gender Identity Not on file Sexual Orientation Not on file documented as of this encounter Plan of Treatment Upcoming Encounters Date Type Department Care Team (Late st Contact Info) Description 10/24/2025 11:20 AM CDT Office Visit [facility] Primary Care [address] [phone] Carmen Robin MD [address] [place] [phone] documented as of this encounter Visit Diagnoses Not on filedocumented in this encounter Care Teams Television Audio Engineer Relationship Specialty Start Date End Date Carmen Robin MD [address] [place] [phone] PCP - General Family Practice 10/16/23 documented as of this encounter
--- OUTSIDE RECORDS SUMMARY | 2025-05-30 10:18 | XMS_ITS | Encounter Summary ---
Author Organization [facility] Address [address] [place] [address] Care Team Providers Care Senior Category Manager Name Role Phone Carmen Robin MD Primary Care Provider [phone] Encounter Details Date Type Department Care Team (Late st Contact Info) Description 05/30/2000 Outpatient Historical [facility] Internal Medicine - [facility] [address] [facility] [address] [place] [address] Wili Garcia MD [address] [facility] [address] [place] [phone] Social History Tobacco Use Types Packs/Day Years Used Date Smoking Tobacco: Never Assessed Comments Unknown Sex and Gender Information Value Date Recorded Sex Assigned at Not on file 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 Gender Identity Not on file Sexual Orientation Not on file documented as of this encounter Plan of Treatment Upcoming Encounters Date Type Department Care Team (Late st Contact Info) Description 10/24/2025 11:20 AM CDT Office Visit [facility] Primary Care [address] [phone] Carmen Robin MD [address] [place] [phone] documented as of this encounter Visit Diagnoses Not on filedocumented in this encounter Care Teams Senior Category Manager Relationship Specialty Start Date End Date Carmen Robin MD [address] [place] [phone] PCP - General Family Practice 10/16/23 documented as of this encounter
--- OUTSIDE RECORDS SUMMARY | 2025-05-30 10:18 | XMS_ITS | Patient Health Record ---
Author Organization [facility] Address [address] [place], [place] [address] Care Team Providers Care Proposal Editor Name Role Phone Hemant Rangel Unavailable [phone] Migration, Provider Unavailable Unavailable Allergies Allergen (clinical drug ingredient) Drug/Non Drug Allergy documented on EMR Reaction Allergy Type Onset Date Status amoxicillin Amoxicillin Unknown Drug Allergy Act geno erythromycin Erythromycin Unknown Drug Allergy A ctive Substance with sulfonamide structure and antibacterial mechanism of action (substance) Sulfa Antibiotics Unknown Drug Allergy Active tetracycline Tetracycline Unknown Drug Allergy A ctive Results Component Value Reference Range Flag Notes THINPREP TIS PAP W/REFL HPV mRNA E6/E7 (15520) Reviewed date:11/23/2024 02:35:21 PM Interpretation: Performing Lab:[facility] [address] [facility] [facility] Notes/Report: FASTING: UNKNOWN CLINICAL INFORMATION: N Rou megha exam LMP: N NONE GIVEN PREV. PAP: N NONE GIVEN PREV. BX: N NONE GIVEN SOURCE: N None given STATEMENT OF ADEQUACY: N Satisfactory for evaluation. Endocervical/transformation zone component present. INTERPRETATION/RESULT: N Cytology Results: Negative for intraepithelial lesion or malignancy. COMMENT: N This Pap test has been evaluated with computer assisted technology. NURSE SPECIALIST: Aster TAYLOR, CT(ASCP) CT screening location: [place] [address] [place] [address] COMMENT EXPLANATORY NOTE: The Pap is a screening test for cervical cancer. It is not a diagnostic test and is subject to false negative and false positive results. It is most reliable when a satisfactory sample, regularly obtained, is submitted with relevant clinical findings and history, and when the Pap result is evaluated along with historic and current clinical information. SIS [id number] Reviewed date:12/28/2024 01:58:02 PM Interpretation: Performing Lab: Notes/Report: Reason For Referral No Information Medications Medication SIG (Take, Route, Frequency, Duration) Notes Start Date End Date Status Raloxifene HCl 60 MG Tablet TAKE 1 TABLE T DAILY Oral; Duration: 90 Days Active Synthroid 75 MCG Tablet TAKE 1 TABLET (7 5 MCG) BY MOUTH DAILY IN THE MORNING. Oral; Duration: 90 Days Active Repatha SureClick 140 MG/ML Solution Auto-injector ADMINISTER 1 ML UNDER THE SKIN EVERY 14 DAYS Subcutaneous; Duration: 28 Days Active Ezetimibe 10 MG Tablet TAKE 1 TABLET TANA LY Oral; Duration: 90 Days Active Liothyronine Sodium 5 MCG Tablet TAKE 1 TABLET DAILY ON AN EMPTY STOMACH *GREENSTONE* Oral; Duration: 90 Days Active Problems Problem Type SNOMED Code ICD Code Onset Dates Problem Status W/U Status Risk Notes Problem Postmenopausal bleeding (57805166) Postmenopausal bleeding (N95.0) Active confirmed Problem Pure hypercholesterolemia (654105028) Pure hypercholesterolem ia, unspecified (E78.00) Active confirmed Problem Menopausal syndrome (218790745) Menopausal syndrome (N95.1) Active confirmed Problem Screening for malignant neoplasm of breast (865568978) Breast cancer screening, high risk patient (Z12.39) Active confirmed Myriad RiskScore : Lifetime Risk = 26.4%; 5 Year Risk = 10.0% Problem Family history of breast cancer (891279493) Family history of breast cancer (Z80.3) Active confirmed Problem Graves disease (228761552) Graves disease (E05.00) Active confirmed Problem Hormone replacement therapy (658077732) Hormone replacement therapy (HRT) (Z79.890) Active confirmed Problem Glaucoma (32216418) Glaucoma (H40.9) Active con firmed Problem Hypercholesterolemia (71920083) Hypercholesterolem ia (272.0) Active confirmed Problem Hypothyroidism (47009925) Hypothyroidism (E03.9) Active confirmed Problem Thyroid disorder (36346773) Thyroid disorder (E07.9) Active confirmed Problem Lesion of vulva (566906532) Vulvar lesion (N90.89) Active confirmed Vital Signs Height-cm 162.56 cm 11/18/2024 Blood pressure diastolic 80 mm Hg 11/18/2024 Weight-kg 64.86 kg 11/18/2024 Height 5'4'' in 11/18/2024 Blood pressure systolic 128 mm Hg 11/18/2024 Weight 143 lbs 11/18/2024 BMI 24.54 kg/m2 11/18/2024 Encounters Encounter Location Date Provider Diagnosis [address] [address] 11/18/2024 Hemant Garcialindseyzack Routine gynecologica l examination Z01.419 ; Family history of breast cancer Z80.3 ; Pure hypercholesterolemia, unspecified E78.00 ; Hypothyroidism E03.9 ; Graves disease E05.00 ; Hormone replacement therapy (HRT) Z79.890 ; Postmenopausal bleeding N95.0 and Vulvar lesion N90.[address] [address] 12/24/2024 Hemant Garcialindseyzack Postmenopausal bleeding 627.1 and Postmenopausal bleeding N95.[address] [address] 12/24/2024 Hemant Garcialindseyzack Postmenopausal bleeding N95.0 ; Menopausal syndrome N95.1 ; Hormone replacement therapy (HRT) Z79.890 ; Breast cancer screening, high risk patient Z12.39 and Family history of breast cancer Z80.3 [facility] [address] [place], [place] [id number] 11/13/2024 Provider Migration [facility] [address] [place] [id number] 11/14/2024 Provider Migration Assessments Encounter Date Diagnosis (ICD Code) Assessment Notes Treatment Notes Treatment Clinical Notes Section Notes 11/18/2024 Family history of breast cancer (ICD-10 - Z80.3) Direct Patient to [employer] [facility] website link to see if she meets criteria for CGX testing 11/18/2024 Routine gynecological examination (ICD-10 - Z01.419) 12/24/2024 Postmenopausal bleeding (ICD9-CM - 627.1) 12/24/2024 Postmenopausal bleeding (ICD-10 - N95.0) 12/24/2024 Postmenopausal bleeding (ICD-10 - N95.0) Stop Pellets. Stop HRT Track Bleeding and let us know if continues. 12/24/2024 Menopausal syndrome (ICD-10 - N95.1) 12/24/2024 Hormone replacement therapy (HRT) (ICD-10 - Z79.890) 11/18/2024 Pure hypercholesterolemi a, unspecified (ICD-10 - E78.00) 11/18/2024 Hypothyroidism (ICD-10 - E03.9) 12/24/2024 Breast cancer screening, high risk patient (ICD-10 - Z12.39) Myriad RiskScore: Lifetime Risk = 26.4%; 5 Year Risk = 10.0% Breast Imaging q 6 months. Raloxifene for elevated 5 year BC Risk 12/24/2024 Family history of breast cancer (ICD-10 - Z80.3) 11/18/2024 Graves disease (ICD-10 - E05.00) 11/18/2024 Hormone replacement therapy (HRT) (ICD-10 - Z79.890) 11/18/2024 Postmenopausal bleeding (ICD-10 - N95.0) RTO for SIS 11/18/2024 Vulvar lesion (ICD-10 - N90.89) Release of info to Dr Zabala for 08/06. Assignment Clerk Onc Consult Lesion/nodule has not changed in size. Erika believes it is smaller Plan Of Treatment Pending Test Test Name Order Date AMERIPATH THINPREP TIS RFX HPV E6/E7,ASC ABOVE ([id number]) 11/18/2024 Insurance Providers Payer Name Payer Address Payer Phone Subscriber Number Group Number Insured Name Patient Relationship to Insured Coverage Start Date Coverage End Date [employer] [address] [place], [place] [id number] Erika Allen Self - patient is the insured Medical (General) History Medical History History ICD Code Glaucoma H40.9 Graves disease E05.00 Hormone replacement therapy (HRT) Z79.89 0 Hypercholesterolemia 272.0 Hypothyroidism E03.9 Thyroid disorder E07.9 Family history of breast cancer Z80.3 Menopausal syndrome N95.1 No DVT/PE Postmenopausal bleeding N95.0 Vulvar lesion N90.89 Breast cancer screening, high risk patie nt Z12.39 Family history of breast cancer Z80.3 [employer] 48 Gene Panel = negat geno; VUS X2; Myriad RiskScore: Lifetime Risk = 26.4%; 5 Year Risk = 10.0% Surgical History Surgery Date(Month/Year) cholecystectomy colonoscopy d&c endometrial ablation gallbladder removal hysterectomy lumpectomy, left breast hysteroscopy ovarian-benign mass removed wisdom tooth removal
--- OUTSIDE RECORDS SUMMARY | 2025-05-30 10:18 | XMS_ITS | Encounter Summary ---
Author Organization [facility] Address [address] [place] [address] Care Team Providers Care Remelter Name Role Phone Carmen Robin MD Primary Care Provider [phone] Encounter Details Date Type Department Care Team (Late Contact Info) Description 07/05/1999 Outpatient Historical [facility] Internal Medicine - [facility] [address] [facility] [address] [place] [address] Wili Garcia MD [address] [facility] [address] [place] [address] Social History Tobacco Use Types Packs/Day Years Used Date Smoking Tobacco: Never Assessed Comments Unknown Sex and Gender Information Value Date Recorded Sex Assigned at Not on file 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 Gender Identity Not on file Sexual Orientation Not on file documented as of this encounter Plan of Treatment Upcoming Encounters Date Type Department Care Team (Late st Contact Info) Description 10/24/2025 11:20 AM CDT Office Visit [facility] Primary Care [address] [address] Carmen Robin MD [address] [place] [phone] documented as of this encounter Visit Diagnoses Not on filedocumented in this encounter Care Teams Remelter Relationship Specialty Start Date End Date Carmen Robin MD [address] [place] [phone] PCP - General Family Practice 10/16/23 documented as of this encounter
--- OUTSIDE RECORDS SUMMARY | 2025-05-30 10:18 | XMS_ITS | Encounter Summary ---
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 Gender Identity Not on file Sexual Orientation Not on file Occupation Industry Job Start Date Job End Date Not on file Not on file Not on file Not on file documented as of this encounter Plan of Treatment Upcoming Encounters Date Type Department Care Team (Late st Contact Info) Description 10/24/2025 11:20 AM CDT Office Visit [facility] [address] [place] [address] Carmen Robin MD [address] [place] [phone] documented as of this encounter Visit Diagnoses Not on filedocumented in this encounter Care Teams Hoop Flaring Machine Operator Helper Relationship Specialty Start Date End Date Carmen Robin MD [address] [place] [phone] PCP - General Family Practice 10/16/23 documented as of this encounter
--- OUTSIDE RECORDS SUMMARY | 2025-05-30 10:18 | XMS_ITS | Encounter Summary ---
Author Organization [facility] Address 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 Gender Identity Not on file Sexual Orientation Not on file documented as of this encounter Plan of Treatment Upcoming Encounters Date Type Department Care Team (Late st Contact Info) Description 10/24/2025 11:20 AM CDT Office Visit [facility] Primary Care [address] [place] [address] [address] Carmen Robin MD [address] [place] [phone] documented as of this encounter Visit Diagnoses Not on filedocumented in this encounter Care Teams Wood Floor Layer Relationship Specialty Start Date End Date Carmen Robin MD [address] [place] [phone] PCP - General Family Practice 10/16/23 documented as of this encounter
--- OUTSIDE RECORDS SUMMARY | 2025-05-30 10:18 | XMS_ITS | Clinical Summary ---
Author Organization [facility] Address [address] [place] [address] Care Team Providers Care Modeling Agency Manager Name Role Phone Unavailable Primary Care Provider Unavailabl e Source Comments [facility],non-owned Affiliates and Associated Physician Practices is amultiple site organization consisting of ambulatory clinics and hospital sitesin [place], [place], [place] and [place]. This disclosure is being madepursuant to the Care Everywhere program and may not contain all information available regarding this patient. Last updated 18.[facility] Social History Tobacco Use Types Packs/Day Years Used Date Smoking Tobacco: Never Assessed Comments Unknown Sex and Gender Information Value Date Recorded Sex Assigned at Not on file Legal Sex Female 6:26 AM ORDER PLANNER Gender Identity Not on file Sexual Orientation [...]
[2025-05-30] MEDS: ceFAZolin 2 GM in SODIUM CHLORIDE 0.9% IV 50 ML 100 ML IVPB (10:19)
--- OUTSIDE RECORDS SUMMARY | 2025-05-30 10:19 | XMS_ITS | Patient Health Record ---
Author Organization [facility] Address [address] [place], [place] [id number] Care Team Providers Care Commission Broker Name Role Phone JAMILAH ROMAN Unavailable [phone] Reason For Referral No Information Medications Medication SIG (Take, Route, Frequency, Duration) Notes Start Date End Date Status Aspirin 81 MG Oral aspirin 81 MG Ch ewable TabletOriginal Medicationaspirin 81 MG Chewable Tablet 09/10/19 17 Active lutein 25 MG / zeaxanthin 5 MG Oral Capsule ORAL lutein 25 MG / zeaxanthin 5 MG Oral CapsuleOriginal Medicationlutein 25 MG / zeaxanthin 5 MG Oral Capsule *Reorder from [employer] for eRx and Interaction Alerts* 09/10/19 17 Active levothyroxine sodium 0.088 MG Oral Tablet [Synthroid] ORAL levothyroxine sodium 0.088 M G Oral Tablet [Synthroid]Original Medicationlevothyroxine sodium 0.088 MG Oral Tablet [Synthroid] *Reorder from [employer] for eRx and Interaction Alerts* 09/10/19 17 Active Risedronate Sodium 150 MG Oral Tablet ORAL risedronate sodium 150 MG Oral TabletOriginal Medicationrisedronate sodium 150 MG Oral Tablet *Reorder from [employer] for eRx and Interaction Alerts* 09/10/19 17 Active testosterone 75 MG Drug Implant [Testopel] testosterone 75 MG Drug Implant [Testopel]Original Medicationtestosterone 75 MG Drug Implant [Testopel] *Reorder from [employer] for eRx and Interaction Alerts* 09/10/19 17 Active Progesterone 100 MG Vaginal Insert VAGINAL progesterone 100 MG Vaginal InsertOriginal Medicationprogesterone 100 MG Vaginal Insert *Reorder from [employer] for eRx and Interaction Alerts* 09/10/19 17 Active rosuvastatin calcium 10 MG Oral Tablet [Crestor] ORAL rosuvastatin calcium 10 MG Oral Tablet [Crestor]Original Medicationrosuvastatin calcium 10 MG Oral Tablet [Crestor] *Reorder from [employer] for eRx and Interaction Alerts* 09/10/19 17 Active cholecalciferol 0.025 MG Oral Capsule ORAL cholecalciferol 0.025 MG Ora l CapsuleOriginal Medicationcholecalciferol 0.025 MG Oral Capsule *Reorder from [employer] for eRx and Interaction Alerts* 09/10/19 17 Active calcium carbonate 600 MG / cholecalciferol 125 UNT Oral Tablet ORAL calcium carbonate 600 MG / cholecalciferol 125 UNT Oral TabletOriginal Medicationcalcium carbonate 600 MG / cholecalciferol 125 UNT Oral Tablet *Reorder from [employer] for eRx and Interaction Alerts* 09/10/19 17 Active estradiol valerate 10 MG/ML Injectable Solution estradiol valerate 10 MG/ML Injectable SolutionOriginal Medicationestradiol valerate 10 MG/ML Injectable Solution *Reorder from [employer] for eRx and Interaction Alerts* 09/10/19 17 Active docosaenoic acid 200 MG / eicosapentaenoic acid 300 MG Oral Capsule ORAL docosaenoic acid 200 MG / eicosapentaenoic acid 300 MG Oral CapsuleOriginal Medicationdocosaenoic acid 200 MG / eicosapentaenoic acid 300 MG Oral Capsule *Reorder from [employer] for eRx and Interaction Alerts* 09/10/19 17 Active acetaminophen 325 MG Oral Tablet [Tylenol] ORAL acetaminophen 325 MG Oral Tablet [Tylenol]Original Medicationacetaminophen 325 MG Oral Tablet [Tylenol] *Reorder from [employer] for eRx and Interaction Alerts* 09/10/19 17 Active Ubiquinol 200 MG Oral Capsule ORAL ubiquinol 200 MG Oral CapsuleOriginal Medicationubiquinol 200 MG Oral Capsule *Reorder from [employer] for eRx and Interaction Alerts* 09/10/19 17 Active vitamin E 268 MG Oral Capsule ORAL vitamin E 268 MG Oral CapsuleOriginal Medicationvitamin E 268 MG Oral Capsule *Reorder from [employer] for eRx and Interaction Alerts* 09/10/19 17 Active ascorbic acid 500 MG Extended Release Oral Capsule ORAL ascorbic acid 500 MG Extende d Release Oral CapsuleOriginal Medicationascorbic acid 500 MG Extended Release Oral Capsule *Reorder from [employer] for eRx and Interaction Alerts* 09/10/19 17 Active Plan Of Treatment No Information Insurance Providers Payer Name Payer Address Payer Phone Subscriber Number Group Number Insured Name Patient Relationship to Insured Coverage Start Date Coverage End Date [facility] [address] [place], [place] [id number] YANI MEJIA Self - patient is the insured
--- OUTSIDE RECORDS SUMMARY | 2025-05-30 10:19 | XMS_ITS | Clinical Summary ---
Author Organization [facility] Address [address] [facility] [facility] [place] [address] Care Team Providers Care Sheep Rancher Name Role Phone Pablo Morales MD Primary Care Provider [phone] Allergies Active Allergy Reactions Criticality Noted Date Comments Amoxicillin Cephalexin Rash Medium 01/30/2018 Erythromycin Unknown 09/07/2012 Penicillins Sulfa (Sulfonamide Antibiotics) Rash Medium 01/16 Tetracycline Medications aspirin 81 mg tablet Active omega 8-vcw-zwl-fish oil 100-160-1,000 mg capsule Active SYNTHROID 75 mcg tablet 8 Active liothyronine (CYTOMEL) 5 mcg tablet 8 Active multivitamin tabletIndicatio ns:Vitamin Deficiency Prevention Active ascorbic acid (VITAMIN C) 500 mg tablet,chewable Acti ve vitamin E (AQUASOL E) 100 unit capsule Active vit D3-vit X-oemwahciw-alg s [id number] nfbw-lps-xn-mg tablet Take by mouth. Activ e coenzyme [...] hours as needed 3 Active Ca carb-D3-mag su-ppx-irmo-Zn (Caltrate-D3 Plus Minerals) 300 mg-20 mcg- 25 [...] DFE Assessment & Plan (08/02/2024 4:18 PM VETERINARY PRACTICE MANAGER): POAG OU Denies concerns IOP at goal [...] concerns Assessment & Plan (10/23/2020 6:31 PM VETERINARY PRACTICE MANAGER): HVF remains normal OCT with concern for [...] OU Assessment & Plan (07/06/2019 10:44 AM VETERINARY PRACTICE MANAGER): No e/o AMD OU Assessment & Plan [...] VS Assessment & Plan (08/02/2024 4:18 PM VETERINARY PRACTICE MANAGER): Not yet VS Assessment & Plan (06/02/2023 [...] time Assessment & Plan (07/06/2019 10:28 AM VETERINARY PRACTICE MANAGER): Mild, NVS Observe Assessment & Plan (06/10/2019 [...] on file Legal Sex Female 8:22 PM VETERINARY PRACTICE MANAGER Gender Identity Female 01/26/2025 10:40 PM CDT [...] 11/09/2021 Zoster Vaccine Completed 11/22/2024, 05/30/2024 Insurance [facility] Address: [facility] [id number] [place] [id number] Care Teams Sheep Rancher Relationship Specialty Start Date End Date Pablo Morales MD PCP - General 12/06/16
--- OUTSIDE RECORDS SUMMARY | 2025-05-30 10:19 | XMS_ITS | Clinical Summary ---
Author Organization [facility] Address [address] [place] [address] Care Team Providers Care Editing Computer Publisher Name Role Phone Unavailable Primary Care Provider Unavailabl e Immunizations Immunization Administration Dates Next Due PFIZER COVID-19 (ORIGINAL FO RMULATION, PURPLE CAP) mRNA, LNP-S, PF, 30 MCG/0.3 ML DOSE 10/28/2020,10/07/2020 Social History Tobacco Use Types Packs/Day Years Used Date Smoking Tobacco: Never Assessed Comments Unknown Sex and Gender Information Value Date Recorded Sex Assigned at Not on file Legal Sex Female 11:54 AM MEDICAL BILLING AND CODING SPECIALIST Gender Identity Not on file Sexual Orientation [...]
[2025-05-30] MEDS: LIDOCAINE 2% GEL UROJET 10 ML PKG MUCOUS MEM (10:29)
--- NOTE | 2025-05-30 10:36 | P.OP_ITS ---
Procedure Note - Detailed Date of Procedure 05/30/25 Pre-op Diagnosis Right proximal ureteral stone with hydronephrosis Post-op Diagnosis Same Procedure Performed Cystoscopy left retrograde pyelogram left ureteral stent placement Surgeon Toy Spivey MD Anesthesia MAC and Local (Uro jet) Indications She comes to the ER with an 8 mm proximal left ureteral stone. She has significant pain and nausea. She presents for a stent placement. She would like to be discharged postoperatively she cares for her mother If all goes well we can accomplish this. We will set up outpatient stone management Findings Uncomplicated stent placement Description of Procedure She was correctly identified. Informed consent obtained. From the operating room. She was given monitored anesthesia care. She was prepped draped sterile fashion in the dorsal lithotomy position. She was given appropriate perioperative antibiotics. Time-out performed. Cystoscopy revealed normal- appearing bladder without abnormalities. On fluoroscopy she was excreting dye from her CT scan with dye. Some extravasation was noted around the left kidney was mild in amount. I did a gentle retrograde pyelogram on the left outline ureteral now to be. Delicate distal ureter. Again some mild extravasation was noted. Nothing very concerning. I placed a guidewire in a pole kidney. I then placed a 4.8 variable length stent. Proximal coils in the renal pelvis. Distal coil was visually in the bladder. Her bladder was drained. She was awakened transferred to PACU in stable condition Implants Ureteral stent Estimated Blood Loss 0 Drains Yes (Ureteral stent) Packing No Pathology None sent Complications No immediate complications Condition Stable Disposition PACU
== END 2025-05-30 12:32 | disposition home or self-care (01) ==
LOC: ANHED 09:24 → ANHSURGERY 09:40
PROVIDERS: Student in an Organized Health Care Education/Training Program; Emergency Provider Student in an Organized Health Care Education/Training Program; Visit Provider Urology
PROC: (CPT 52352; principal; 2025-05-30 10:30)
DX: N20.1 Calculus of ureter (principal); N13.30 Unspecified hydronephrosis; R31.29 Other microscopic hematuria; E78.00 Pure hypercholesterolemia, unspecified; I51.9 Heart disease, unspecified; E05.00 Thyrotoxicosis with diffuse goiter without thyrotoxic crisis or storm; Z98.890 Other specified postprocedural states; Z90.49 Acquired absence of other specified parts of digestive tract
CPT/HCPCS: 52332; 36415; 74177; 74420; 80053; 81001; 83605; 83690; 83735; 85025; 85610; 85730; 86140; 96361; 96374; 96375; 99285; J0690; A9270; C1758; C1769; C2617; J1171; J2003; J2250; J2270; J2405; J2704; J3010; J7030; J7120; Q9966; Q9967

== ENCOUNTER 2025-06-03 11:24 | Outpatient (CLI) | payer MEDICARE, SELFPAY ==
--- OUTSIDE RECORDS SUMMARY | 2024-11-13 04:00 | XMS_ITS ---
Author Organization [facility] Address [address] [place] [address] Care Team Providers Care Cyber Security Administrator Name Role Phone Hemant Rangel Unavailable [phone] Migration, Provider Unavailable Unavailable REASON FOR VISIT EMR-Gabriele Encounters Encounter Location Date Provider Diagnosis [facility] [place] [address] [facility] [place] [id number] 11/13/2024 Prov ider Migration Plan Of Treatment No Information Progress Notes * Erika MEJIADOB:1960 (64 yo F)Acc No.[id number]:11/13/2024 Patient: Ryan Erika VILLAR :1960 A ge:64 Y S ex:Female Phone: Address:[address], [place], [address] Subjective: * Chief Complaints: * E MR-Gabriele * * Date:
--- OUTSIDE RECORDS SUMMARY | 2024-11-14 04:00 | XMS_ITS ---
Author Organization [facility] Address [address] [place] [address] Care Team Providers Care Ball Truing Machine Operator Name Role Phone Hemant Rangel [phone] Migration, Provider Unavailable Unavailable Allergies Allergen (clinical drug ingredient) Drug/Non Drug Allergy documented on EMR Reaction Allergy Type Onset Date Status Information temporarily unavailable Amoxicillin Unknown Drug Allergy Active Information temporarily unavailable Erythromycin Unknown Drug Allergy Active Information temporarily unavailable Sulfa Antibiotics Unknown Drug Allergy Active Information temporarily unavailable Tetracycline Unknown Drug Allergy Active REASON FOR VISIT EMR-Gabriele Encounters Encounter Location Date Provider Diagnosis [facility] [place] [address] [place], [place] [id number] 11/14/2024 Prov ider Migration Plan Of Treatment No Information Progress Notes * Erika MEJIADOB:1960 (64 yo F)Acc No.[id number]:11/14/2024 Patient: Ryan Erika VILLAR :1960 A ge:64 Y S ex:Female Phone: Address:[address], [place], [address] Subjective: * Chief Complaints: * E MR-Gabriele * Allergies: E rythromycin: AllergyTetracycline: AllergyAmoxicillin: AllergySulfa Antibiotics: Allergy * * Date:
--- OUTSIDE RECORDS SUMMARY | 2024-11-25 08:30 | XMS_ITS ---
Author Organization [facility] Address [address] [place] [address] Care Team Providers Care Rn Trauma Name Role Phone Annazack Hemant [facility] [phone] REASON FOR VISIT f/u TV US Encounters Encounter Location Date Provider Diagnosis [address] [address] 11/25/2024 Hemant Rangel Plan Of Treatment No Information Progress Notes * Erika MEJIADOB:1960 (64 yo F)Acc No.[id number]:11/25/2024 Progress Notes Patient: Ryan alegre Erika Miller Provider: Ayesha Rangel M.D. :1960 A ge:64 Y S ex:Female Date:11/25/2024 Phone: [facility] [facility] [place] Subjective: * Chief Complaints: * f /u TV US * Ocular Surgical History: Objective: Vision Examination: Care Plan Details* * Electronic signature of Don Rangel on 06/03/2025 at 12:20 PM CDT Sign off status: Pending * Provider: Ayesha Rangel M.D. Date: 0 11/25/2024 Generated for Niltoni ng/Fabrittanyg/eTransmitting on: 1 12:20 PM CDT
--- OUTSIDE RECORDS SUMMARY | 2024-12-09 05:00 | XMS_ITS ---
Author Organization [facility] Address [address] [place] [address] Care Team Providers Care Slot Attendant Name Role Phone Hemant Rangel [facility] [phone] Allergies Allergen (clinical drug ingredient) Drug/Non Drug Allergy documented on EMR Reaction Allergy Type Onset Date Status amoxicillin Amoxicillin Unknown Drug Allergy Act geno erythromycin Erythromycin Unknown Drug Allergy A ctive Substance with sulfonamide structure and antibacterial mechanism of action (substance) Sulfa Antibiotics Unknown Drug Allergy Active tetracycline Tetracycline Unknown Drug Allergy A ctive REASON FOR VISIT F/U US, Smeet results review Medications Medication SIG (Take, Route, [...] Active Encounters Encounter Location Date Provider Diagnosis [address] [address] 12/09/2024 Hemant Rangel Plan Of Treatment No Information Progress Notes * Erika MEJIADOB:1960 (64 yo F)Acc No.[id number]:12/09/2024 Progress Notes Patient: Ryan codey Erika Miller Provider: Ayesha Rangel M.D. :1960 A ge:64 Y S ex:Female Date:12/09/2024 Phone: Address:[facility] [address] [place], [place] Subjective: * Chief Complaints: * F /U US, myriad results review * Medical History: Glaucoma Graves disease Hormone replacement therapy (HRT) Hypercholesterolemia Hypothyroidism Thyroid disorder Family history of breast cancer Menopausal syndrome No DVT/PE Postmenopausal bleeding Vulvar lesion * Surgical History: cholecystectomy colonoscopy d&c endometrial ablation gallbladder removal hysterectomy lumpectomy, left breast hysteroscopy ovarian-benign mass removed wisdom tooth removal * Family History: Yuan igrated Family History: diagnosed with Breast Cancer, [...] signature of Don Rangel on 06/03/2025 at 12:19 PM CDT Sign off status: Pending * Provider: Ayesha Rangel M.D. Date: 0 12/09/2024 Generated for Fatimah Branch/Tc on: 12:19 PM CDT
--- OUTSIDE RECORDS SUMMARY | 2025-06-02 13:30 | XMS_ITS | Encounter Summary ---
Author Organization [facility] Address [address] [place] [address] Care Team Providers Care Newspaper Columnist Name Role Phone Carmen Robin MD Primary Care Provider [phone] Reason for Visit * Reason Comments Nurse Only Pt is here for a keerthi se visit, pt got her repatha injection Encounter Details Date Type Department Care Team (Latest Contact Info) Description 06/02/2025 1:30 PM CDT Clinical Support [id number] [place] [address] Hyperlipidemia, unspecified hyperlipidemia type (Primary Dx) Social History Tobacco Use Types Packs/Day Years Used Date Smoking Tobacco: Never Passive Smoke Exposure: Never Smokeless Tobacco: Never Comments:Never smoked. Alcohol Use Standard Drinks/Week Comments Yes 0 (1 standard drink = 0.6 oz pure alcohol) Occasionally glass of wine / kian (1 every few months). 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 Gender Identity Not on file Sexual Orientation Not on file Occupation Industry Job Start Date Job End Date Not on file Not on file Not on file Not on file documented as of this encounter Plan of Treatment Upcoming Encounters Date Type Department Care Team (Late st Contact Info) Description 10/24/2025 11:20 AM CDT Office Visit [address] [address] Carmen Robin MD [address] [place] [phone] documented as of this encounter Visit Diagnoses Diagnosis Hyperlipidemia, unspecified hyperlipidemia type- Primary documented in this encounter Care Teams Newspaper Columnist Relationship Specialty Start Date End Date Carmen Robin MD [address] [place] [phone] PCP - General Family Practice 10/16/23 documented as of this encounter
--- OUTSIDE RECORDS SUMMARY | 2025-06-03 12:18 | XMS_ITS | Encounter Summary ---
Author Organization [facility] Address [address] [place] [address] Care Team Providers Care Labor Service Representative Name Role Phone Carmen Robin MD Primary Care Provider [phone] Encounter Details Date Type Department Care Team (Late Contact Info) Description 07/05/1999 Outpatient Historical [facility] Internal Medicine - [facility] [address] [facility] [address] [place] [address] Wili Garcia MD [address] [facility] [address] [place] [address] Social History Tobacco Use Types Packs/Day Years Used Date Smoking Tobacco: Never Assessed Comments Unknown Sex and Gender Information Value Date Recorded Sex Assigned at Not on file 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 Gender Identity Not on file Sexual Orientation Not on file documented as of this encounter Plan of Treatment Upcoming Encounters Date Type Department Care Team (Late st Contact Info) Description 10/24/2025 11:20 AM CDT Office Visit [facility] Primary Care [address] [address] Carmen Robin MD [address] [place] [phone] documented as of this encounter Visit Diagnoses Not on filedocumented in this encounter Care Teams Labor Service Representative Relationship Specialty Start Date End Date Carmen Robin MD [address] [place] [phone] PCP - General Family Practice 10/16/23 documented as of this encounter
--- OUTSIDE RECORDS SUMMARY | 2025-06-03 12:18 | XMS_ITS | Encounter Summary ---
Author Organization [facility] Address [address] [place] [address] Care Team Providers Care Bark Skinner Name Role Phone Carmen Robin MD Primary Care Provider [phone] Encounter Details Date Type Department Care Team (Late Contact Info) Description 06/21/1999 Outpatient Historical [facility] Internal Medicine - [facility] [address] [facility] [address] [place] [address] Wili Garcia MD [address] [facility] [address] [place] [address] Social History Tobacco Use Types Packs/Day Years Used Date Smoking Tobacco: Never Assessed Comments Unknown Sex and Gender Information Value Date Recorded Sex Assigned at Not on file 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 Gender Identity Not on file Sexual Orientation Not on file documented as of this encounter Plan of Treatment Upcoming Encounters Date Type Department Care Team (Late st Contact Info) Description 10/24/2025 11:20 AM CDT Office Visit [facility] Primary Care [address] [address] Carmen Robin MD [address] [place] [phone] documented as of this encounter Visit Diagnoses Not on filedocumented in this encounter Care Teams Bark Skinner Relationship Specialty Start Date End Date Carmen Robin MD [address] [place] [phone] PCP - General Family Practice 10/16/23 documented as of this encounter
--- OUTSIDE RECORDS SUMMARY | 2025-06-03 12:18 | XMS_ITS | Patient Health Record ---
Author Organization [facility] Address [address] [place] [address] Care Team Providers Care Content Writer Name Role Phone Hemant Rangel Unavailable [phone] Migration, Provider Unavailable Unavailable Allergies Allergen (clinical [...] THINPREP TIS PAP W/REFL HPV mRNA E6/E7 (54823) Reviewed date:11/23/2024 02:35:21 PM Interpretation: Performing Lab:[facility] [address] [facility] [facility] Notes/Report: FASTING: UNKNOWN CLINICAL INFORMATION: N Rou megha exam LMP: N NONE GIVEN PREV. PAP: N NONE GIVEN PREV. BX: N NONE GIVEN SOURCE: N None given STATEMENT OF ADEQUACY: N Satisfactory for evaluation. Endocervical/transformation zone component present. INTERPRETATION/RESULT: N Cytology Results: Negative for intraepithelial lesion or malignancy. COMMENT: N This Pap test has been evaluated with computer assisted technology. SCIENTIST: Aster TAYLOR, CT(ASCP) CT screening location: [place] [address] [place] [address] COMMENT EXPLANATORY NOTE: The Pap is a screening test for cervical cancer. It is not a diagnostic test and is subject to false negative and false positive results. It is most reliable when a satisfactory sample, regularly obtained, is submitted with relevant clinical findings and history, and when the Pap result is evaluated along with historic and current clinical information. SIS [id number] Reviewed date:12/28/2024 01:58:02 PM Interpretation: Performing Lab: [...] W/U Status Risk Notes Problem Postmenopausal bleeding (86858164) Postmenopausal bleeding (N95.0) Active confirmed Problem Pure hypercholesterolemia (156358867) Pure hypercholesterolem ia, unspecified (E78.00) Active confirmed Problem Menopausal syndrome (022907185) Menopausal syndrome (N95.1) Active confirmed Problem Screening for malignant neoplasm of breast (169965137) Breast cancer screening, high risk patient (Z12.39) Active confirmed Myriad RiskScore : Lifetime Risk = 26.4%; 5 Year Risk = 10.0% Problem Family history of breast cancer (664136954) Family history of breast cancer (Z80.3) Active confirmed Problem Graves disease (912755752) Graves disease (E05.00) Active confirmed Problem Hormone replacement therapy (621418560) Hormone replacement therapy (HRT) (Z79.890) Active confirmed Problem Glaucoma (62858886) Glaucoma (H40.9) Active con firmed Problem Hypercholesterolemia (41292237) Hypercholesterolem ia (272.0) Active confirmed Problem Hypothyroidism (05224950) Hypothyroidism (E03.9) Active confirmed Problem Thyroid disorder (39363144) Thyroid disorder (E07.9) Active confirmed Problem Lesion of vulva (638319091) Vulvar lesion (N90.89) Active confirmed Vital Signs Height-cm 162.56 cm 11/18/2024 Blood pressure diastolic 80 mm Hg 11/18/2024 Weight-kg 64.86 kg 11/18/2024 Height 5'4'' in 11/18/2024 Blood pressure systolic 128 mm Hg 11/18/2024 Weight 143 lbs 11/18/2024 BMI 24.54 kg/m2 11/18/2024 Encounters Encounter Location Date Provider Diagnosis [address] [address] 11/18/2024 Hemant Garcialindseyzack Routine gynecologica l examination Z01.419 ; Family history of breast cancer Z80.3 ; Pure hypercholesterolemia, unspecified E78.00 ; Hypothyroidism E03.9 ; Graves disease E05.00 ; Hormone replacement therapy (HRT) Z79.890 ; Postmenopausal bleeding N95.0 and Vulvar lesion N90.[address] [address] 12/24/2024 Hemant Garcialindseyzack Postmenopausal bleeding 627.1 and Postmenopausal bleeding N95.[address] [address] 12/24/2024 Hemant Garcialindseyzack Postmenopausal bleeding N95.0 ; Menopausal syndrome N95.1 ; Hormone replacement therapy (HRT) Z79.890 ; Breast cancer screening, high risk patient Z12.39 and Family history of breast cancer Z80.3 [facility] [address] [place], [place] [id number] 11/13/2024 Provider Migration [facility] [address] [place] [id number] 11/14/2024 Provider Migration Assessments Encounter Date Diagnosis (ICD Code) Assessment Notes Treatment Notes Treatment Clinical Notes Section Notes 11/18/2024 Family history of breast cancer (ICD-10 - Z80.3) Direct Patient to [email or web address] [facility] website link to see if she meets [...] of info to Dr Zabala for 08/06. Paramedic Supervisor Onc Consult Lesion/nodule has not changed in size. Erika believes it is smaller Plan Of Treatment Pending Test Test Name Order Date AMERIPATH THINPREP TIS RFX HPV E6/E7,ASC ABOVE ([id number]) 11/18/2024 Insurance Providers Payer Name Payer Address Payer Phone Subscriber Number Group Number Insured Name Patient Relationship to Insured Coverage Start Date Coverage End Date [employer] [address] [place], [place] [id number] Erika Allen Self - patient is the [...] Z12.39 Family history of breast cancer Z80.3 [email or web address] Gene Panel = negat geno; VUS X2; Myriad RiskScore: Lifetime Risk = 26.4%; 5 Year Risk = 10.0% Surgical History Surgery Date(Month/Year) cholecystectomy colonoscopy d&c endometrial ablation gallbladder removal hysterectomy lumpectomy, left breast hysteroscopy ovarian-benign mass removed wisdom tooth removal
--- OUTSIDE RECORDS SUMMARY | 2025-06-03 12:19 | XMS_ITS | Clinical Summary ---
Author Organization [facility] Address [address] [place] [address] Care Team Providers Care Junior Bookkeeper Name Role Phone Unavailable Primary Care Provider Unavailabl e Source Comments [facility] [employer],non-owned Affiliates and Associated Physician Practices is amultiple site organization consisting of ambulatory clinics and hospital sitesin [place], [place], [place] and [place]. This disclosure is being madepursuant to the Care Everywhere program and may not contain all information available regarding this patient. 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
--- OUTSIDE RECORDS SUMMARY | 2025-06-03 12:19 | XMS_ITS | Clinical Summary ---
Author Organization [facility] e Address [address] [place] [address] Care Team Providers Care Insole Lip Turner Name Role Phone Carmen Robin MD Primary Care Provider [phone] Allergies Active Allergy Reactions Criticality Noted Date [...] mg) by mouth daily. 3 Active antiox. 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 10/16/2023 Punctate keratopathy [...] Encounters Date Type Department Care Team Description 06/02/2025 1:30 PM CDT Clinical Support [facility] [address] [place] [phone] Hyperlipidemia, unspecified hyperlipidemia type (Primary Dx) 05/31/2025 Telephone [facility] [address] [place] [phone] Carmen Robin MD Needs Orders Written 05/25/2025 8:40 AM CDT Office Visit [facility] [address] [place] [address] Carmen Robin MD Family history of breast cancer (Primary Dx); Change in voice; Poor balance 05/16/2025 Results Follow-Up [facility] [address] [place] [address] Peggy Feldman PA-C COLON CANCER SCREEN, STOOL DNA 05/03/2025 External Device Data STL ABSTRACTION Provider, Abstract 04/26/2025 Telephone [facility] [address] [place] [phone] Carmen Robin MD Primary Care Outreach 04/19/2025 External Device Data STL ABSTRACTION Provider, Abstract 04/12/2025 External Device Data STL ABSTRACTION Provider, Abstract from Last 3 Months Immunizations Immunization Administration Dates Next Due (ADACEL/BOOSTRIX)(10 YR UP) TDAP VACCINE, 0.5ML, IM 11/09/2021 (PFIZER)(12 YR UP) COVID-19 VACCINE - EMERGENCY USE AUTHORIZATION, MRNA, [id number](PF) 30 MCG/0.3 ML IM SUSP 01/07/2022 (PREVNAR 20)(6 WKS UP) PNEUM OCOCCAL CONJUGATE VACCINE 20-VALENT (PCV20), POLYSACCHARIDE [id number] CONJUGATE, ADJUVANT 0.5 ML (PF) IM 10/18/2024 (SHINGRIX)(50 YRS UP) ZOSTER VACCINE RECOMBINANT, 0.5 ML, IM 11/22/2024,05/30/2024 Family History Medical History Relation Name Comments Healthy Brother Yifan (1/2 brother) Watches c holesterol High Cholesterol Brother Yifan (1/2 brother) High cholestetol is under control. Heart Disease Father Stefan of a hear t attack at 58. High Cholesterol Father Gene of hea rt attack at age 58. [...] fo r squamous cell carcinoma (left leg). Dumpman also removed a squamous cell carcinoma (clean margins) on rt arm and Basal cell rt leg. Thyroid Disease Mother Edilson Goiter remov ed and parathyroid. Colon Cancer Other Heart Disease Paternal Grandfather Juan o f massive heart attack at age 79. 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 Gender Identity Not on file Sexual [...] Description 10/24/2025 11:20 AM CDT Office Visit [facility] Care [address] [address] Carmen Robin MD [address] [place] [phone] Health Maintenance Due Date Last Done Comments FIT/FOBT Q 1 YEAR (AUTO ORDER) 1977 FIT/FOBT Q 1 year 2004 Flex Sig/CT Colonography Q 5 years 2004 RSV VACCINE (60+ or ) (1 - Risk 50-74 years 1-dose series) 2009 COLORECTAL CANCER SCREENING (AUTO ORDER) 05/10/2023 05/10/2013 COLORECTAL SCREENING 05/15/2023 05/15/2013, 05/10/20 13 INFLUENZA VACCINE (#1) 2025 COVID-19 Vaccine (5 - 2024-2 6 season) 2025 [...] d or Tdap) 11/10/2031 11/09/2021 Medicare Advantage ([place]) Preventative Visit/Annual Wellness Visit Completed 10/18/2024, 10/16/2023, 11/11/2022, Additional history exists PNEUMOCOCCAL VACCINE 50+ YEARS Completed 10/18/2024 ZOSTER VACCINE Completed 11/22/2024, 05/30/2024 Procedures Procedure Name Priority Date/Time Associated Diagnosis Comments COLON CANCER SCREEN, STOOL DNA Routine 05/11/2025 3:01 PM CDT Colon cancer screening XR DEXA BONE DENSITY AXIAL 1 OR MORE SITES Routine 08/30/2024 8:53 AM PERSONNEL COUNSELOR Osteopenia of multiple sites MAMMO 3D LARRY SCREEN BILAT W OR WO CAD Routine 08/30/2024 Screening mammogram, encounter for from Last 3 Months or Most Recently Relevant to Health Maintenance Results * COLON CANCER SCREEN, STOOL DNA (05/11/2025 3:01 PM CDT) COLOGUARD RESULT Negative Negative [facility] Comment: The Cologuard (TM) test was performed [...] screened with both Cologuard and colonoscopy. (Devonte Roa et al, N Engl J Med 2014;370(14):0358-1064) The normal value (reference range) for this assay is negative. COLOGUARD RE-SCREENING RECOMMENDATION: Periodic colorectal cancer screening is an important part of preventive healthcare for asymptomatic individuals at average risk for colorectal cancer. Following a negative Cologuard result, the [place] Cancer Society and U.S. Multi-Society Task Force screening guidelines recommend a Cologuard re-screening interval of 3 years. References: [place] [employer] Guideline for Colorectal Cancer Screening: https://www.cancer.org/cancer/nejox-cqvpqq-dkabxc/gebotvzrb-elrvwnotl-hudaoga/ac s-rec ommendations.html.; Demarcus AQUINO, Gayle ANDERSEN, Soila MillerK, Colorectal Cancer Screening: Recommendations for Physicians and Patients from the U.S. Multi-Society Task Force on Colorectal Cancer Screening , Am J Gastroenterology 2017; 112:9123-2452. TEST DESCRIPTION: Composite algorithmic analysis of stool [...] screened with both Cologuard and colonoscopy. (Devonte Roa et al, N Engl J Med 2014;370(14):5989-7896.) Cologuard may produce a false negative or false positive result (no colorectal cancer or precancerous polyp present at colonoscopy follow up). A negative Cologuard test result does not guarantee the absence of CRC or advanced adenoma (pre-cancer). The current Cologuard screening interval is every 3 years. ([place] [employer] Society and U.S. Multi-Society Task Force). Cologuard performance data in a 10,000 patient pivotal study using colonoscopy as the reference method can be accessed at the following location: www.Errund/results. Additional description of the Cologuard test process, warnings and precautions can be found at www.Barak ITCogZurffrd.MVERSE. Stool STOOL SPECIMEN / Unknown 05/11/2025 3:01 PM CDT 05/12/2025 5:24 PM CDT us Carmen Robin MD BODY FLUIDS AND STOOLS Final Result [facility] # [id number] [address] , [address] [place] [address] * XR DEXA BONE DENSITY AXIAL 1 OR MORE SITES (08/30/2024 8:53 AM PERSONNEL COUNSELOR) T-SCORE FEMUR [facility] ILL T-SCORE FEMUR (LEFT) [facility] ILL T-SCORE FEMUR (RIGHT) [facility] ILL T-SCORE FEMUR NECK [facility] ILL T-SCORE FEMORAL NECK (LEFT) [facility] ILL T-SCORE FEMORAL NECK (RIGHT) [facility] ILL T-SCORE HEEL [facility] [place] ILL T-SCORE HEEL (LEFT) [facility] ILL T-SCORE HEEL (RIGHT) [facility] ILL T-SCORE HIP [facility] ILL T-SCORE HIP (LEFT) [facility] ILL T-SCORE HIP (RIGHT) [facility] ILL T-SCORE WRIST [facility] ILL T-SCORE WRIST (LEFT) [facility] ILL T-SCORE WRIST (RIGHT) [facility] ILL T-SCORE SPINE [facility] ILL Anatomical Region Laterality Modality Other 08/30/2024 8:53 AM PERSONNEL COUNSELOR us Carmen Robin MD DIAGNOSTIC IMAGING ORDERABLES Edited Result - Final * MAMMO 3D LARRY SCREEN BILAT W OR WO CAD (08/30/2024) Anatomical Region Laterality Modality Breast Bilateral Mammography 08/30/2024 us Carmen Robin MD MAMMO ORDERABLES Final Result from Last 3 Months or Most Recently Relevant to Health Maintenance Insurance Advance Directives For more information, please contact: [phone] * Full Code (Latest Code Status on File) Date Activated Date Inactivated Comments 05/10/2013 12:33 PM 05/10/2013 4:43 PM Care Teams Insole Lip Turner Relationship Specialty Start Date End Date Carmen Robin MD [address] [place] [phone] PCP - General Family Practice 10/16/23
--- OUTSIDE RECORDS SUMMARY | 2025-06-03 12:19 | XMS_ITS | Encounter Summary ---
Author Organization [facility] Address [address] [place] [address] Care Team Providers Care Skimmer Reverberatory Name Role Phone Carmen Robin MD Primary Care Provider Encounter Details Date Type Department Care Team (Late st Contact Info) Description 05/30/2000 Outpatient Historical [facility] Internal Medicine - [facility] [address] [facility] [address] [place] [address] Wili Garcia MD [address] [facility] [address] [place] [address] Social History Tobacco Use Types Packs/Day Years Used Date Smoking Tobacco: Never Assessed Comments Unknown Sex and Gender Information Value Date Recorded Sex Assigned at Not on file 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 Gender Identity Not on file Sexual Orientation Not on file documented as of this encounter Plan of Treatment Upcoming Encounters Date Type Department Care Team (Late st Contact Info) Description 10/24/2025 11:20 AM CDT Office Visit [facility] Primary Care [address] [address] Carmen Robin MD [address] [place] [phone] documented as of this encounter Visit Diagnoses Not on filedocumented in this encounter Care Teams Skimmer Reverberatory Relationship Specialty Start Date End Date Carmen Robin MD [address] [place] [phone] PCP - General Family Practice 10/16/23 documented as of this encounter
--- OUTSIDE RECORDS SUMMARY | 2025-06-03 12:19 | XMS_ITS | Encounter Summary ---
Author Organization [facility] Address [address] [place] [address] Care Team Providers Care Drill Doctor Name Role Phone Carmen Robin MD Primary Care Provider [phone] Encounter Details Date Type Department Care Team (Late Contact Info) Description 09/20/1999 Outpatient Historical [facility] Internal Medicine - [facility] [address] [facility] [address] [place] [address] Wili Garcia MD [address] [facility] [address] [place] [address] Social History Tobacco Use Types Packs/Day Years Used Date Smoking Tobacco: Never Assessed Comments Unknown Sex and Gender Information Value Date Recorded Sex Assigned at Not on file 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 Gender Identity Not on file Sexual Orientation Not on file documented as of this encounter Plan of Treatment Upcoming Encounters Date Type Department Care Team (Late st Contact Info) Description 10/24/2025 11:20 AM CDT Office Visit [facility] Primary Care [address] [address] Carmen Robin MD [address] [place] [phone] documented as of this encounter Visit Diagnoses Not on filedocumented in this encounter Care Teams Drill Doctor Relationship Specialty Start Date End Date Carmen Robin MD [address] [place] [phone] PCP - General Family Practice 10/16/23 documented as of this encounter
--- OUTSIDE RECORDS SUMMARY | 2025-06-03 12:19 | XMS_ITS | Encounter Summary ---
Author Organization [facility] Address 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 Gender Identity Not on file Sexual Orientation Not on file documented as of this encounter Plan of Treatment Upcoming Encounters Date Type Department Care Team (Late st Contact Info) Description 10/24/2025 11:20 AM CDT Office Visit [facility] Primary Care [address] [address] Carmen Robin MD [address] [place] [address] documented as of this encounter Visit Diagnoses Not on filedocumented in this encounter Care Teams Erp Project Manager Relationship Specialty Start Date End Date Carmen Robin MD [address] [place] [phone] PCP - General Family Practice 10/16/23 documented as of this encounter
--- OUTSIDE RECORDS SUMMARY | 2025-06-03 12:19 | XMS_ITS | Encounter Summary ---
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 Gender Identity Not on file Sexual Orientation Not on file Occupation Industry Job Start Date Job End Date Not on file Not on file Not on file Not on file documented as of this encounter Plan of Treatment Upcoming Encounters Date Type Department Care Team (Late st Contact Info) Description 10/24/2025 11:20 AM CDT Office Visit [facility] [address] [place] [address] Carmen Robin MD [address] [place] [phone] documented as of this encounter Visit Diagnoses Not on filedocumented in this encounter Care Teams Mainframe Consultant Relationship Specialty Start Date End Date Carmen Robin MD [address] [place] [phone] PCP - General Family Practice 10/16/23 documented as of this encounter
--- OUTSIDE RECORDS SUMMARY | 2025-06-03 12:20 | XMS_ITS | Clinical Summary ---
Author Organization [facility] 2 Address [address] [facility] [place] [address] Care Team Providers Care Tombstone Setter Name Role Phone Pablo Morales MD Primary Care Provider [phone] Allergies Active Allergy Reactions Criticality Noted Date Comments Amoxicillin Cephalexin Rash Medium 01/30/2018 Erythromycin Unknown 09/07/2012 Penicillins Sulfa (Sulfonamide Antibiotics) Rash Medium 01/16 Tetracycline Medications aspirin 81 mg tablet Active omega 4-hwb-obp-fish oil 100-160-1,000 mg capsule Active SYNTHROID 75 mcg tablet 8 Active liothyronine (CYTOMEL) 5 mcg tablet 8 Active multivitamin tabletIndicatio ns:Vitamin Deficiency Prevention Active ascorbic acid (VITAMIN C) 500 mg tablet,chewable Acti ve vitamin E (AQUASOL E) 100 unit capsule Active vit D3-vit V-oqniygdvk-wfz s [phone] szrp-lgo-zm-mg tablet Take by mouth. Activ e coenzyme [...] hours as needed 3 Active Ca carb-D3-mag xt-qhc-jdke-Zn (Caltrate-D3 Plus Minerals) 300 mg-20 mcg- 25 [...] DFE Assessment & Plan (08/02/2024 4:18 PM IMPROVEMENT LEAD): POAG OU Denies concerns IOP at goal [...] concerns Assessment & Plan (10/23/2020 6:31 PM IMPROVEMENT LEAD): HVF remains normal OCT with concern for [...] OU Assessment & Plan (07/06/2019 10:44 AM IMPROVEMENT LEAD): No e/o AMD OU Assessment & Plan [...] VS Assessment & Plan (08/02/2024 4:18 PM IMPROVEMENT LEAD): Not yet VS Assessment & Plan (06/02/2023 [...] time Assessment & Plan (07/06/2019 10:28 AM IMPROVEMENT LEAD): Mild, NVS Observe Assessment & Plan (06/10/2019 [...] on file Legal Sex Female 8:22 PM IMPROVEMENT LEAD Gender Identity Female 01/26/2025 10:40 PM CDT [...] 11/09/2021 Zoster Vaccine Completed 11/22/2024, 05/30/2024 Insurance [facility] Address: [facility] [address] [place] [id number] Care Teams Tombstone Setter Relationship Specialty Start Date End Date Pablo Morales MD PCP - General 12/06/16
--- OUTSIDE RECORDS SUMMARY | 2025-06-03 12:20 | XMS_ITS | Patient Health Record ---
Author Organization [facility] Address [address] [place], [place] [address] Care Team Providers Care Rig Operator Name Role Phone JAMILAH ROMAN Unavailable [phone] Reason For Referral No Information Medications Medication [...] zeaxanthin 5 MG Oral Capsule *Reorder from [employer] for eRx and Interaction Alerts* 09/10/19 17 Active levothyroxine sodium 0.088 MG Oral Tablet [Synthroid] ORAL levothyroxine sodium 0.088 M G Oral Tablet [Synthroid]Original Medicationlevothyroxine sodium 0.088 MG Oral Tablet [Synthroid] *Reorder from [employer] for eRx and Interaction Alerts* 09/10/19 17 Active Risedronate Sodium 150 MG Oral Tablet ORAL risedronate sodium 150 MG Oral TabletOriginal Medicationrisedronate sodium 150 MG Oral Tablet *Reorder from [employer] for eRx and Interaction Alerts* 09/10/19 17 Active testosterone 75 MG Drug Implant [Testopel] testosterone 75 MG Drug Implant [Testopel]Original Medicationtestosterone 75 MG Drug Implant [Testopel] *Reorder from [employer] for eRx and Interaction Alerts* 09/10/19 17 Active Progesterone 100 MG Vaginal Insert VAGINAL progesterone 100 MG Vaginal InsertOriginal Medicationprogesterone 100 MG Vaginal Insert *Reorder from [employer] for eRx and Interaction Alerts* 09/10/19 17 Active rosuvastatin calcium 10 MG Oral Tablet [Crestor] ORAL rosuvastatin calcium 10 MG Oral Tablet [Crestor]Original Medicationrosuvastatin calcium 10 MG Oral Tablet [Crestor] *Reorder from [employer] for eRx and Interaction Alerts* 09/10/19 17 Active cholecalciferol 0.025 MG Oral Capsule ORAL cholecalciferol 0.025 MG Ora l CapsuleOriginal Medicationcholecalciferol 0.025 MG Oral Capsule *Reorder from [employer] for eRx and Interaction Alerts* 09/10/19 17 Active calcium carbonate 600 MG / cholecalciferol 125 UNT Oral Tablet ORAL calcium carbonate 600 MG / cholecalciferol 125 UNT Oral TabletOriginal Medicationcalcium carbonate 600 MG / cholecalciferol 125 UNT Oral Tablet *Reorder from [employer] for eRx and Interaction Alerts* 09/10/19 17 Active estradiol valerate 10 MG/ML Injectable Solution estradiol valerate 10 MG/ML Injectable SolutionOriginal Medicationestradiol valerate 10 MG/ML Injectable Solution *Reorder from [employer] for eRx and Interaction Alerts* 09/10/19 17 Active docosaenoic acid 200 MG / eicosapentaenoic acid 300 MG Oral Capsule ORAL docosaenoic acid 200 MG / eicosapentaenoic acid 300 MG Oral CapsuleOriginal Medicationdocosaenoic acid 200 MG / eicosapentaenoic acid 300 MG Oral Capsule *Reorder from [employer] for eRx and Interaction Alerts* 09/10/19 17 Active acetaminophen 325 MG Oral Tablet [Tylenol] ORAL acetaminophen 325 MG Oral Tablet [Tylenol]Original Medicationacetaminophen 325 MG Oral Tablet [Tylenol] *Reorder from [employer] for eRx and Interaction Alerts* 09/10/19 17 Active Ubiquinol 200 MG Oral Capsule ORAL ubiquinol 200 MG Oral CapsuleOriginal Medicationubiquinol 200 MG Oral Capsule *Reorder from [employer] for eRx and Interaction Alerts* 09/10/19 17 Active vitamin E 268 MG Oral Capsule ORAL vitamin E 268 MG Oral CapsuleOriginal Medicationvitamin E 268 MG Oral Capsule *Reorder from [employer] for eRx and Interaction Alerts* 09/10/19 17 Active ascorbic acid 500 MG Extended Release Oral Capsule ORAL ascorbic acid 500 MG Extende d Release Oral CapsuleOriginal Medicationascorbic acid 500 MG Extended Release Oral Capsule *Reorder from [employer] for eRx and Interaction Alerts* 09/10/19 17 Active Plan Of Treatment No Information Insurance Providers Payer Name Payer Address Payer Phone Subscriber Number Group Number Insured Name Patient Relationship to Insured Coverage Start Date Coverage End Date [facility] [address] [place], [place] [id number] YANI MEJIA Self - patient is the insured
--- OUTSIDE RECORDS SUMMARY | 2025-06-03 12:20 | XMS_ITS | Clinical Summary ---
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
== END 2025-06-03 11:25 | disposition home or self-care (01) ==
LOC: ANHSURGERY 11:31
PROVIDERS: Visit Provider Urology
DX: N20.1 Calculus of ureter (principal); N13.30 Unspecified hydronephrosis
CPT/HCPCS: 87086

== ENCOUNTER 2025-06-10 02:17 | Day surgery (SDC) | payer MEDICARE, SELFPAY ==
--- NOTE | 2025-06-01 13:07 | PM.HPGS ---
History of Present Illness History of Present Illness Consent: Risks, benefits, and alternatives have been discussed and questions answered. Patient agrees to proceed with procedure. Chief complaint: Lt Ureteral Kidney Stone Narrative: Erika Allen is a 64 year old female recently admitted with acute left renal colic. Imaging demonstrated an obstructing 8 [address] left [address]J calculus. Dr. Spivey placed left ureteral stents and she now presents for definitive stone management with ESWL. She is aware the risk including, but not limited to, failure to completely eradicate the stone with need for additional procedures, hematuria perinephric hematoma Review of Systems Cardiovascular: Cardiovascular: Denies chest pain, Denies lightheadedness, Denies palpitations and Denies dyspnea Respiratory: Respiratory: Denies dyspnea Gastrointestinal: Gastrointestinal: Denies diarrhea, Denies nausea and Denies vomiting Genitourinary: Genitourinary: Denies hematuria and Denies dysuria Endocrine: Endocrine: Denies palpitations [facility] Past Medical History Medical History Heart disease High cholesterol History of cardiovascular stress test Status post hysteroscopy removal of polyp in endometrium and DNC, benign; also 06/24/17 H/O Graves' disease radioactive iodine Tx 1995 or 1996 Surgical History Surgical History S/P colonoscopy Hx of cholecystectomy 1999 S/P lumpectomy, left breast benign, 1992 or 1993 Meds Home Medications and Allergies Home Medications ?Medication ?Instructions ?Recorded ?Confirmed ?Type hydrocodone 5 mg-acetaminophen 325 1 tablet PO Q6H PRN pain #20 tabs 05/30/25 Rx mg tablet nitrofurantoin 100 mg PO Q12H 5 days #10 caps 05/30/25 Rx monohydrate/macrocrystals 100 mg capsule (Macrobid) oxybutynin chloride 5 mg tablet 5 mg PO TID #60 tabs 05/30/25 Rx phenazopyridine 200 mg tablet 200 mg PO TID PRN pain 6 doses #30 05/30/25 Rx (Pyridium) tabs Allergies Allergy/AdvReac Type Severity Reaction Status Date / Time amoxicillin Allergy Unknown Other Verified 05/30/25 06:29 cephalexin Allergy Unknown Other Verified 05/30/25 06:29 erythromycin base Allergy Unknown Other Verified 05/30/25 06:29 Sulfa (Sulfonamide Allergy Unknown Other Verified 05/30/25 06:29 Antibiotics) tetracycline Allergy Unknown Unknown Verified 05/30/25 06:29 Exam Const: General: no acute distress Resp: Effort & Inspection: normal respiratory effort GI: Inspection: non-distended GI Palp: No abdominal tenderness and No Guarding due to palpation present (GI) Auscultation: normal bowel sounds Assessment and Plan Assessment and plan (1) Ureteropelvic junction calculus: Code(s): N20.1 - Calculus of ureter Status: Acute Assessment and Plan: Left ESWL
[2025-06-02 09:40] VITALS: BMI 22.6
--- NOTE | 2025-06-02 09:55 | PC.NURSE ---
[facility] has started construction of its new state of the art ER which will open Spring 2026. With this, we anticipate parking may be a challenge for some our surgical patients and families. Parking spaces are limited but are available for all Surgical, obstetrics, and ER patients sharing this lot. If you arrive and find you are having a hard time finding a parking space, please note that we understand the challenges, please drive around the hospital and park near Hospital Entrance 1. When you enter this entrance, you can ask a volunteer to direct or take you back to the surgical waiting area to check in. We appreciate everyone?s understanding of these expected challenges while we build for your future. Report to the Outpatient Waiting Room, entrance under the green pavilion located off [address], at time __11:30am on date ___06/10/25 ____. Planned Procedure Time: __1:30pm .? Time changes happen often and if your time is changed the preop area will call you the afternoon before. - You and your visitor will be asked to self-screen and do not enter if you have any COVID symptoms. Please call surgeon if you need to reschedule. - A mask is optional within the hospital at this time. Patients may have clear liquids (water, carbonated beverages, clear teas, apple juice) until 3 hours prior to surgery with a maximum of 20 ounces. - No food from midnight until time of surgery and no smoking, or chewing tobacco (or any form of nicotine). No chewing gum, candy or mints. (10:30am) Take only the following medications with a SIP of water on the morning of surgery: Levothyroxine, Liothyrosine, Macrobid, Pyridium as needed, and Hydrocodone as needed DO NOT STOP ANY OF YOUR OTHER PRESCRIPTION MEDICATIONS PRIOR TO SURGERY EXCEPT THE FOLLOWING Hold all vitamins and supplements for [address] Davis Medications to discontinue per physician ____Aspirin still on HOLD till post op Date to take last dose 06/02/25 Please no make-up, nail barbadian, hairspray, perfume, deodorant, or body powder the day of surgery.? No jewelry (including any body piercings) or valuables the day of surgery, leave them at home.? Please take a shower or bath the night before, or the morning of, surgery with an antibacterial soap.?GOLD DIAL Wear comfortable, loose fitting clothing.? - Jewelry must be removed prior to entering the operating room.? Rings and piercings that are not removed may be cut off. - The hospital will not accept responsibility for valuables.? - Please leave all valuables, including medications, at home the day of surgery. If you are going home after surgery, a licensed forklift driver must drive you home.? - NO public transportation without another adult if you receive anesthesia. - We recommend that an adult stay with you for 24 hours following discharge. - We also recommend that you do not drive, make important decision, drink alcoholic beverages, or take any drugs that were not prescribed by your health care provider for at least 24 hours after your discharge time. Follow any additional instructions given to you from your surgeon. Telephone instructions given to ____Patient and asked if any additional questions and then verbalized understanding. Patient advised to call surgeon office or pre surgery nurse liaison [phone] if any additional questions.
[2025-06-10] VITALS (7 sets, daily range): BP systolic 113–121; BP diastolic 54–74; PULSE 56–101; RESP 12–19; TEMP 36.2–36.9; O2SAT 99–100
--- NOTE | ~2025-06-10 | XR_ITS ---
Abdominal radiograph(s) INDICATION: ESWL COMPARISON: CT abdomen and pelvis 05/30/2025 TECHNIQUE: 2 views supine AP abdomen FINDINGS: Lung bases clear. Scattered colonic stool. Small bowel loops not well seen. No evidence of organomegaly. Left renal stones persist, including large round stone within central collecting system. Left double-J ureteral stent. No right-sided nephroureteral calculi identified. No acute bony abnormality. IMPRESSION: 1. Left renal stones persist. 2. Left double-J ureteral stent in place. Reviewed, dictated and finalized at location R.
--- OUTSIDE RECORDS SUMMARY | 2025-06-10 02:20 | XMS_ITS | Encounter Summary ---
Author Organization [facility] Address [address] [place] [address] Care Team Providers Care Tomography Technologist Name Role Phone Carmen Robin MD Primary Care Provider [phone] Encounter Details Date Type Department Care Team (Late st Contact Info) Description 02/07/2000 Outpatient Historical [facility] Internal Medicine - [address] [place] [address] Pablo Grider Jr., MD NO ADDRESS ON FILE Social History Tobacco Use Types Packs/Day Years Used Date Smoking Tobacco: Never Assessed Comments Unknown Sex and Gender Information Value Date Recorded Sex Assigned at Not on file 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 Gender Identity Not on file Sexual Orientation Not on file documented as of this encounter Plan of Treatment Upcoming Encounters Date Type Department Care Team (Late st Contact Info) Description 10/24/2025 11:20 AM CDT Office Visit [facility] Primary Care [address] [address] Carmen Robin MD [address] [place] [phone] documented as of this encounter Visit Diagnoses Not on filedocumented in this encounter Care Teams Tomography Technologist Relationship Specialty Start Date End Date Carmen Robin MD [address] [place] [phone] PCP - General Family Practice 10/16/23 documented as of this encounter
--- OUTSIDE RECORDS SUMMARY | 2025-06-10 02:20 | XMS_ITS | Clinical Summary ---
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
--- OUTSIDE RECORDS SUMMARY | 2025-06-10 02:20 | XMS_ITS | Encounter Summary ---
Author Organization [facility] Address [address] [place] [address] Care Team Providers Care Swing Grinder Name Role Phone Carmen Robin MD Primary Care Provider [phone] Encounter Details Date Type Department Care Team (Late Contact Info) Description 06/21/1999 Outpatient Historical [facility] Internal Medicine - [facility] [address] [facility] [address] [place] [address] Wili Garcia MD [address] [facility] [address] [place] [address] Social History Tobacco Use Types Packs/Day Years Used Date Smoking Tobacco: Never Assessed Comments Unknown Sex and Gender Information Value Date Recorded Sex Assigned at Not on file 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 Gender Identity Not on file Sexual Orientation Not on file documented as of this encounter Plan of Treatment Upcoming Encounters Date Type Department Care Team (Late st Contact Info) Description 10/24/2025 11:20 AM CDT Office Visit [facility] Primary Care [address] [address] Carmen Robin MD [address] [place] [phone] documented as of this encounter Visit Diagnoses Not on filedocumented in this encounter Care Teams Swing Grinder Relationship Specialty Start Date End Date Carmen Robin MD [address] [place] [phone] PCP - General Family Practice 10/16/23 documented as of this encounter
--- OUTSIDE RECORDS SUMMARY | 2025-06-10 02:20 | XMS_ITS | Encounter Summary ---
Author Organization [facility] Address [address] [place] [address] Care Team Providers Care Cuprous Chloride Helper Name Role Phone Carmen Robin MD Primary Care Provider [phone] Encounter Details Date Type Department Care Team (Late Contact Info) Description 07/05/1999 Outpatient Historical [facility] Internal Medicine - [facility] [address] [facility] [address] [place] [address] Wili Garcia MD [address] [facility] [address] [place] [address] Social History Tobacco Use Types Packs/Day Years Used Date Smoking Tobacco: Never Assessed Comments Unknown Sex and Gender Information Value Date Recorded Sex Assigned at Not on file 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 Gender Identity Not on file Sexual Orientation Not on file documented as of this encounter Plan of Treatment Upcoming Encounters Date Type Department Care Team (Late st Contact Info) Description 10/24/2025 11:20 AM CDT Office Visit [facility] Primary Care [address] [address] Carmen Robin MD [address] [place] [phone] documented as of this encounter Visit Diagnoses Not on filedocumented in this encounter Care Teams Cuprous Chloride Helper Relationship Specialty Start Date End Date Carmen Robin MD [address] [place] [phone] PCP - General Family Practice 10/16/23 documented as of this encounter
--- OUTSIDE RECORDS SUMMARY | 2025-06-10 02:20 | XMS_ITS | Encounter Summary ---
Author Organization [facility] Address [address] [place] [address] Care Team Providers Care Industrial Workers Name Role Phone Carmen Robin MD Primary Care Provider [phone] Encounter Details Date Type Department Care Team (Late Contact Info) Description 09/20/1999 Outpatient Historical [facility] Internal Medicine - [facility] [address] [facility] [address] [place] [address] Wili Garcia MD [address] [facility] [address] [place] [address] Social History Tobacco Use Types Packs/Day Years Used Date Smoking Tobacco: Never Assessed Comments Unknown Sex and Gender Information Value Date Recorded Sex Assigned at Not on file 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 Gender Identity Not on file Sexual Orientation Not on file documented as of this encounter Plan of Treatment Upcoming Encounters Date Type Department Care Team (Late st Contact Info) Description 10/24/2025 11:20 AM CDT Office Visit [facility] Primary Care [address] [address] Carmen Robin MD [address] [place] [phone] documented as of this encounter Visit Diagnoses Not on filedocumented in this encounter Care Teams Industrial Workers Relationship Specialty Start Date End Date Carmen Robin MD [address] [place] [phone] PCP - General Family Practice 10/16/23 documented as of this encounter
--- OUTSIDE RECORDS SUMMARY | 2025-06-10 02:20 | XMS_ITS | Clinical Summary ---
Author Organization [facility] Address [address] [place] [address] Care Team Providers Care Early Head Start Teacher Name Role Phone Carmen Robin MD Primary Care Provider Allergies Active Allergy Reactions Criticality Noted Date [...] mg) by mouth daily. 3 Active antiox. no.56-[id number] t-reji (I-Caps) 280-10-2 mg Capsule Take 1 [...] Status evolocumab (REPATHA) 140 mg/mL injection 140 mgIndications:Hyperlip idemia, unspecified hyperlipidemia type 140 mg subCUT ONE TIME ONLY 06/03/2025 06/03/2025 En ded Active Problems Problem Noted Date Diagnosed Date Atherosclerosis of [place] co ronary artery of [place] heart without angina pectoris 10/16/2023 Punctate keratopathy [...] Description 06/02/2025 1:30 PM CDT Clinical Support [facility] [place] [place] [address] [place] [id number] Hyperlipidemia, unspecified hyperlipidemia type (Primary Dx) 05/31/2025 Telephone [facility] [place] [place] [address] [place] [phone] Carmen Robin MD Needs Orders Written 05/25/2025 8:40 AM CDT Office Visit [facility] [place] [place] [address] [place] [phone] Carmen Robin MD Family history of breast cancer (Primary Dx); Change in voice; Poor balance 05/16/2025 Results Follow-Up [facility] [place] [place] [address] [place] [phone] Peggy Feldman PA-C COLON CANCER SCREEN, STOOL DNA 05/03/2025 External Device Data STL ABSTRACTION Provider, Abstract 04/26/2025 Telephone [facility] [place] [place] [address] [place] [phone] Carmen Robin MD Primary Care Outreach 04/19/2025 External Device Data STL ABSTRACTION Provider, Abstract 04/12/2025 External Device Data STL ABSTRACTION Provider, Abstract from Last 3 Months Immunizations Immunization Administration Dates Next Due (ADACEL/BOOSTRIX)(10 YR UP) TDAP VACCINE, 0.5ML, IM 11/09/2021 (PFIZER)(12 YR UP) COVID-19 VACCINE - EMERGENCY USE AUTHORIZATION, MRNA, [id number](PF) 30 MCG/0.3 ML IM SUSP 01/07/2022 (PREVNAR 20)(6 WKS UP) PNEUM OCOCCAL CONJUGATE VACCINE 20-VALENT (PCV20), POLYSACCHARIDE LOU525 CONJUGATE, ADJUVANT 0.5 ML (PF) IM 10/18/2024 [...] variou s treatments to help. Other Mother Eidlson Glaucoma (Frank s in pressure that had trouble being controlled, caused loss off eyesight. Labor Mother Edilson requ ired early bed rest. Then, water broke 07-13-59, but not due until 09-03-59. Skin Cancer Mother Edilson MOHS Surgery fo r squamous cell carcinoma (left leg). Bread Room Hand also removed a squamous cell carcinoma (clean margins) on rt arm and Basal cell rt leg. Thyroid Disease Mother Edilson Goiter remov ed and parathyroid. Colon Cancer Other Heart Disease Paternal Grandfather Juan o f massive heart attack at age 79. 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 Gender Identity Not on file Sexual Orientation [...] Description 10/24/2025 11:20 AM CDT Office Visit [facility] Primary Care [address] [address] Carmen Robin MD [address] [place] [phone] Health Maintenance Due Date Last Done Comments FIT/FOBT Q 1 YEAR (AUTO ORDER) 1977 FIT/FOBT Q 1 year 2004 Flex Sig/CT Colonography Q 5 years 2004 RSV VACCINE (60+ or ) (1 - Risk 50-74 years 1-dose series) 2009 COLORECTAL CANCER SCREENING (AUTO ORDER) 05/10/2023 05/10/2013 COLORECTAL SCREENING 05/15/2023 05/15/2013, 05/10/20 INFLUENZA VACCINE (#1) 2025 COVID-19 Vaccine ( - 2024-2 6 season) 2025 08/06/2023, 01/07/2022, 10/28/2020, Additional history exists BREAST CANCER SCREENING 08/30/2025 08/30/19, 05/26/2023, 12/25/2021, Additional history exists Colorectal Cancer Screening 05/11/2028 FIT-DNA Q 3 years 05/11/2028 05/11/2025 FIT/ DNA Q 3 YEARS (AUTO ORDER) 05/11/2028 5, 05/11/2025 OSTEOPOROSIS SCREENING 08/30/2029 5, 07/06/2020, 07/06/2020, Additional history exists Colorectal Cancer Screening (AUTO ORDER) 05/11/2030 FLEX SIG/CT COLONOGRAPHY Q 5 YEARS (AUTO ORDER) 05/11/2030 05/11/2025, 05/11/2025 DTAP/TDAP/TD VACCINES (2 - T d or Tdap) 11/10/2031 11/09/2021 [place] ([place]) Preventative Visit/Annual Wellness Visit Completed 10/18/2024, 10/16/2023, 11/11/2022, Additional history exists PNEUMOCOCCAL VACCINE 50+ YEARS Completed 10/18/2024 ZOSTER VACCINE Completed 11/22/2024, 05/30/2024 Procedures Procedure Name Priority Date/Time Associated Diagnosis Comments COLON CANCER SCREEN, STOOL DNA Routine 05/11/2025 3:01 PM CDT Colon cancer screening XR DEXA BONE DENSITY AXIAL 1 OR MORE SITES Routine 08/30/2024 8:53 AM COLLECTION CLERK Osteopenia of multiple sites MAMMO 3D LARRY [...] Roa et al, N Engl J Med 2014;370(14):9046-5393) The normal value (reference range) for this assay is negative. COLOGUARD RE-SCREENING RECOMMENDATION: Periodic colorectal cancer screening is an important part of preventive healthcare for asymptomatic individuals at average risk for colorectal cancer. Following a negative Cologuard result, the [place] Cancer Society and U.S. Multi-Society Task Force screening guidelines recommend a Cologuard re-screening interval of 3 years. References: [place] Cancer Society Guideline for Colorectal Cancer Screening: https://www.cancer.org/cancer/etxxt-hgqjbs-irwayq/dgutclewt-sqguztttr-eupylge/ac s-rec ommendations.html.; Demarcus AQUINO, Gayle ANDERSEN, Soila MillerK, Colorectal Cancer Screening: Recommendations for Physicians and Patients from the U.S. Multi-Society Task Force on Colorectal Cancer Screening , Am J Gastroenterology 2017; 112:2666-1380. TEST DESCRIPTION: Composite algorithmic analysis of stool [...] Roa et al, N Engl J Med 2014;370(14):6924-7470.) Cologuard may produce a false negative or false positive result (no colorectal cancer or precancerous polyp present at colonoscopy follow up). A negative Cologuard test result does not guarantee the absence of CRC or advanced adenoma (pre-cancer). The current Cologuard screening interval is every 3 years. ([place] Cancer Society and U.S. Multi-Society Task Force). Cologuard performance data in a 10,000 patient pivotal study using colonoscopy as the reference method can be accessed at the following location: www.Tapatalk/results. Additional description of the Cologuard test process, warnings and precautions can be found at www.eyeSight [employer] Technologiesoguard.com. Stool STOOL SPECIMEN / Unknown 05/11/2025 3:01 PM CDT 05/12/2025 5:24 PM CDT us Carmen Robin MD BODY FLUIDS AND STOOLS Final Result [employer] [facility] # [id number] [facility] [address], [address] [place] [address] * XR DEXA BONE DENSITY AXIAL 1 OR MORE SITES (08/30/2024 8:53 AM COLLECTION CLERK) T-SCORE FEMUR [facility] I[facility] T-SCORE FEMUR (LEFT) [facility] I[facility] T-SCORE FEMUR (RIGHT) [facility] T-SCORE FEMUR NECK [facility] I[facility] T-SCORE FEMORAL NECK (LEFT) [facility] I[facility] T-SCORE FEMORAL NECK (RIGHT) [facility] I[facility] T-SCORE HEEL [facility] ILL T-SCORE HEEL (LEFT) [facility] ILL T-SCORE HEEL (RIGHT) [facility] I[facility]SC[facility]IP [facility] T-[facility] HIP (LEFT) [facility] ILL T-SCORE HIP (RIGHT) [facility] I[facility] T-SCORE WRIST [facility] I[facility] T-SCORE WRIST (LEFT) [facility] I[facility] T-SCORE WRIST (RIGHT) [facility] I[facility] T-SCORE SPINE [facility] ILL Anatomical Region Laterality Modality Other 08/30/2024 8:53 AM COLLECTION CLERK us Carmen Robin MD DIAGNOSTIC IMAGING ORDERABLES Edited Result - Final * MAMMO 3D LARRY SCREEN BILAT W OR WO CAD (08/30/2024) Anatomical Region Laterality Modality Breast Bilateral Mammography 08/30/2024 us Carmen Robin MD MAMMO ORDERABLES Final Result from Last 3 Months or Most Recently Relevant to Health Maintenance Insurance Advance Directives For more information, please contact: [phone] * Full Code (Latest Code Status on File) Date Activated Date Inactivated Comments 05/10/2013 12:33 PM 05/10/2013 4:43 PM Care Teams Early Head Start Teacher Relationship Specialty Start Date End Date Carmen Robin MD [address] [place] [phone] PCP - General Family Practice 10/16/23
--- OUTSIDE RECORDS SUMMARY | 2025-06-10 02:20 | XMS_ITS | Encounter Summary ---
Author Organization [facility] Address [address] [place] [address] Care Team Providers Care Agriculturist Name Role Phone Carmen Robin MD Primary Care Provider [phone] Encounter Details Date Type Department Care Team (Late st Contact Info) Description 05/30/2000 Outpatient Historical [facility] Internal Medicine - [facility] [address] [facility] [address] [place] [address] Wili Garcia MD [address] [facility] [address] [place] [address] Social History Tobacco Use Types Packs/Day Years Used Date Smoking Tobacco: Never Assessed Comments Unknown Sex and Gender Information Value Date Recorded Sex Assigned at Not on file 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 Gender Identity Not on file Sexual Orientation Not on file documented as of this encounter Plan of Treatment Upcoming Encounters Date Type Department Care Team (Late st Contact Info) Description 10/24/2025 11:20 AM CDT Office Visit [facility] Primary Care [address] [address] Carmen Robin MD [address] [place] [phone] documented as of this encounter Visit Diagnoses Not on filedocumented in this encounter Care Teams Agriculturist Relationship Specialty Start Date End Date Carmen Robin MD [address] [place] [phone] PCP - General Family Practice 10/16/23 documented as of this encounter
--- OUTSIDE RECORDS SUMMARY | 2025-06-10 02:20 | XMS_ITS | Clinical Summary ---
Author Organization [facility] 2 Address [address] [facility] [place] [address] Care Team Providers Care Transplanter Name Role Phone Pablo Morales MD Primary Care Provider [phone] Allergies Active Allergy Reactions Criticality Noted Date Comments Amoxicillin Cephalexin Rash Medium 01/30/2018 Erythromycin Unknown 09/07/2012 Penicillins Sulfa (Sulfonamide Antibiotics) Rash Medium 01/16 Tetracycline Medications aspirin 81 mg tablet Active omega 5-mjr-zrt-fish oil 100-160-1,000 mg capsule Active SYNTHROID 75 mcg tablet 8 Active liothyronine (CYTOMEL) 5 mcg tablet 8 Active multivitamin tabletIndicatio ns:Vitamin Deficiency Prevention Active ascorbic acid (VITAMIN C) 500 mg tablet,chewable Acti ve vitamin E (AQUASOL E) 100 unit capsule Active vit D3-vit Z-pmmbwchfh-svu s [phone] dhfj-ibs-wo-mg tablet Take by mouth. Activ e coenzyme [...] hours as needed 3 Active Ca carb-D3-mag mp-qav-dvcf-Zn (Caltrate-D3 Plus Minerals) 300 mg-20 mcg- 25 [...] DFE Assessment & Plan (08/02/2024 4:18 PM INTERNET PROGRAMMER): POAG OU Denies concerns IOP at goal [...] concerns Assessment & Plan (10/23/2020 6:31 PM INTERNET PROGRAMMER): HVF remains normal OCT with concern for [...] OU Assessment & Plan (07/06/2019 10:44 AM INTERNET PROGRAMMER): No e/o AMD OU Assessment & Plan [...] VS Assessment & Plan (08/02/2024 4:18 PM INTERNET PROGRAMMER): Not yet VS Assessment & Plan (06/02/2023 [...] time Assessment & Plan (07/06/2019 10:28 AM INTERNET PROGRAMMER): Mild, NVS Observe Assessment & Plan (06/10/2019 [...] on file Legal Sex Female 8:22 PM INTERNET PROGRAMMER Gender Identity Female 01/26/2025 10:40 PM CDT [...] Insurance [id number] Care Teams Transplanter Relationship Specialty Start Date End Date Pablo Morales MD PCP - General 12/06/16
--- OUTSIDE RECORDS SUMMARY | 2025-06-10 02:20 | XMS_ITS | Encounter Summary ---
Author Organization [facility] [employer] [facility] Address [address] [place] [address] Care Team Providers Care Fuel Oil Truck Driver Name Role Phone Carmen Robin MD Primary Care Provider [phone] Encounter Details Date Type Department Care Team (Late Contact Info) Description 09/01/2024 Results Follow-Up [facility] [address] [place] [address] Carmen Robin MD [address] [place] [phone] MAMMO 3D LARRY SCREEN BILAT W [...] on file Legal Sex Female 3:30 AM AIRCRAFT PNEUDRAULIC SYSTEMS MECHANIC Gender Identity Not on file Sexual Orientation Not on file Occupation Industry Job Start Date Job End Date Not on file Not on file Not on file Not on file documented as of this encounter Plan of Treatment Upcoming Encounters Date Type Department Care Team (Late st Contact Info) Description 10/24/2025 11:20 AM CDT Office Visit [facility] [address] [place] [address] Carmen Robin MD [address] [place] [phone] documented as of this encounter Visit Diagnoses Not on filedocumented in this encounter Care Teams Fuel Oil Truck Driver Relationship Specialty Start Date End Date Carmen Robin MD [address] [place] [phone] PCP - General Family Practice 10/16/23 documented as of this encounter
--- NOTE | 2025-06-10 06:28 | WPDHPUPDATE1 ---
History and Physical Update Update Date/Time: 06/10/25 06:28 History and Physical has been reviewed, including an updated exam of the patient. There are NO changes in the patient's condition. Risks, benefits, and alternatives have been discussed and questions answered. Patient agrees to proceed with procedure.
--- NOTE | 2025-06-10 11:38 | WPDANESEPPF ---
Anes - Initial Pre Proc Eval Procedure: Operation Date: 06/10/25 13:30 Proposed Procedures p Left Extracorporeal Shock Wave Lithotripsy - Rivera Davis MD s Cystoscopy with Left Stent Removal / Replacement - Rivera Davis MD Date/Time: 06/10/25 11:38 Surgeon: Rivera Davis MD Pre Op Diagnosis: Lt Ureteral Kidney Stone Patient Data Age: 64 Gender: F Height: 1.6 m Weight: 58 kg Allergies Allergy/AdvReac Type Severity Reaction Status Date / Time amoxicillin Allergy Unknown Other Verified 05/30/25 06:29 cephalexin Allergy Unknown Other Verified 05/30/25 06:29 erythromycin base Allergy Unknown Other Verified 05/30/25 06:29 Sulfa (Sulfonamide Allergy Unknown Other Verified 05/30/25 06:29 Antibiotics) tetracycline Allergy Unknown Unknown Verified 05/30/25 06:29 Home Medications ?Medication ?Instructions ?Recorded ?Confirmed ?Type hydrocodone 5 mg-acetaminophen 325 1 tablet PO Q6H PRN pain #20 tabs 05/30/25 06/02/25 Rx mg tablet nitrofurantoin 100 mg PO Q12H 5 days #10 caps 05/30/25 06/02/25 Rx monohydrate/macrocrystals 100 mg capsule (Macrobid) oxybutynin chloride 5 mg tablet 5 mg PO TID #60 tabs 05/30/25 06/02/25 Rx phenazopyridine 200 mg tablet 200 mg PO TID PRN pain 6 doses #30 05/30/25 06/02/25 Rx (Pyridium) tabs aspirin 81 mg chewable tablet 81 mg PO DAILY 06/02/25 06/02/25 History Held on 06/02/25. Instructions: .Provider Order evolocumab 140 mg/mL subcutaneous 140 mg subcut .EVERY 14 DAYS 06/02/25 06/02/25 History pen injector (Repatha SureAlexisick) ezetimibe 10 mg tablet 10 mg PO DAILY 06/02/25 06/02/25 History latanoprost 0.005 % eye drops 1 drp EACH EYE QPM 06/02/25 06/02/25 History levothyroxine 75 mcg tablet 75 mcg PO DAILY 06/02/25 06/02/25 History (Synthroid) liothyronine 5 mcg tablet 7.5 mcg PO DAILY 06/02/25 06/02/25 History raloxifene 60 mg tablet 60 mg PO DAILY 06/02/25 06/02/25 History Patient hx anesthesia problems: none Family hx anesthesia problems: none Results Review: All pre-operative results and documents have been reviewed as part of the pre-operative evaluation. [facility] Past Medical History Medical History Heart disease High cholesterol History of cardiovascular stress test Status post hysteroscopy removal of polyp in endometrium and DNC, benign; also 06/24/17 H/O Graves' disease radioactive iodine Tx 1995 or 1996 Surgical History Surgical History S/P colonoscopy Hx of cholecystectomy 1999 S/P lumpectomy, left breast benign, 1992 or 1993 Social History Social History Smoking status: Never smoker Second hand tobacco smoke exposure: Yes Alcohol intake: current Drinks per week: 1 Substance use: current Substance use type: painkillers Other substance usage details: acutely taking Hydrocodone just past week Living arrangements: with family Additional living arrangements comments: Sign other Spiritual care concerns: No Anes - Eval Final PreProcedure Day of Procedure 06/10/25 11:38 Patient weight: normal Heart: regular rate and rhythm Lungs: clear to auscultation Airway: Mallampati scale class 1 Neurological: alert and oriented Last oral intake: >/= 8 hours ASA classification: II Emergent: no Anesthetic plan: proceed Anesthesia type and monitoring: general LMA and standard monitoring Results Review: All pre-operative results and documents have been reviewed as part of the pre-operative evaluation. Informed Consent: The patient's anesthetic plan and its attendant risks and benefits were discussed with the patient/family/POA. Questions were solicited and answers provided to the satisfaction of the patient/family/POA.
[2025-06-10] MEDS: LACTATED RINGERS 1,000 ML 30 ML IV CONT (12:00)
[2025-06-10] MEDS: levoFLOXacin 500 MG/D5W 100 ML 500 MG/100 ML BAG 100 MG IVPB (12:50)
--- NOTE | 2025-06-10 12:58 | W.PM.PROC2 ---
Procedure Note - Detailed Date of Procedure 06/10/25 Pre-op Diagnosis Lt. Kidney Stone Post-op Diagnosis Same Procedure Performed Left ESWL Surgeon Rivera Davis MD Anesthesia General Description of Procedure The patient was brought to the operative suite where she was placed in the supine position on the Dornier lithotripsy table. The focal point of the lithotripter was placed at a 7mm left renal calculus. A total of 2500 shocks were delivered at a power setting of 4. There appeared to be good fragmentation of the stone. The patient tolerated the procedure well and was taken to the recovery room in good condition. Drains No Packing No Pathology None sent Complications No immediate complications Condition Stable
== END 2025-06-10 15:08 | disposition home or self-care (01) ==
PROVIDERS: Visit Provider Urology
PROC: (CPT 50590; principal; 2025-06-10 13:30)
DX: N20.0 Calculus of kidney (principal); I51.9 Heart disease, unspecified; E78.00 Pure hypercholesterolemia, unspecified; E05.00 Thyrotoxicosis with diffuse goiter without thyrotoxic crisis or storm; Z79.82 Long term (current) use of aspirin; Z79.891 Long term (current) use of opiate analgesic; Z79.85 Long-term (current) use of injectable non-insulin antidiabetic drugs; Z79.810 Long term (current) use of selective estrogen receptor modulators (SERMs); Z98.890 Other specified postprocedural states; Z90.49 Acquired absence of other specified parts of digestive tract
CPT/HCPCS: 50590; 74018; J1100; J1956; J2003; J2405; J2704; J7120

== ENCOUNTER 2025-06-22 10:01 | Outpatient (CLI) | payer MEDICARE, SELFPAY ==
--- OUTSIDE RECORDS SUMMARY | 2024-11-13 03:00 | XMS_ITS ---
Author Organization [facility] Address [address] [place] [address] Care Team Providers Care Assistant Field Hockey Coach Name Role Phone Hemant Rangel Unavailable [phone] Migration, Provider Unavailable Unavailable REASON FOR VISIT EMR-Gabriele Encounters Encounter Location Date Provider Diagnosis [facility] [place] [address] [facility] [place] [id number] 11/13/2024 Prov ider Migration Plan Of Treatment No Information Progress Notes * Erika MEJIADOB:1960 (64 yo F)Acc No.[id number]:11/13/2024 Patient: Ryan Erika VILLAR :1960 A ge:64 Y S ex:Female Phone: Address:[address], [place], [address] Subjective: * Chief Complaints: * E MR-Gabriele * * Date:
--- OUTSIDE RECORDS SUMMARY | 2024-11-14 03:00 | XMS_ITS ---
Author Organization [facility] Address [address] [place] [address] Care Team Providers Care Graduate Rn Name Role Phone Hemant Rangel Unavailable [phone] Migration, Provider Unavailable Unavailable Allergies Allergen (clinical drug ingredient) Drug/Non Drug Allergy documented on EMR Reaction Allergy Type Onset Date Status amoxicillin Amoxicillin Unknown Drug Allergy Act geno erythromycin Erythromycin Unknown Drug Allergy A ctive Substance with sulfonamide structure and antibacterial mechanism of action (substance) Sulfa Antibiotics Unknown Drug Allergy Active tetracycline Tetracycline Unknown Drug Allergy A ctive REASON FOR VISIT EMR-Gabriele Encounters Encounter Location Date Provider Diagnosis [facility] [place] [address] [place], [place] [id number] 11/14/2024 Prov ider Migration Plan Of Treatment No Information Progress Notes * Erika MEJIADOB:1960 (64 yo F)Acc No.[id number]:11/14/2024 Patient: Ryan Erika VILLAR :1960 A ge:64 Y S ex:Female Phone: [place], [address] Subjective: * Chief Complaints: * E MR-Gabriele * Allergies: E rythromycin: AllergyTetracycline: AllergyAmoxicillin: AllergySulfa Antibiotics: Allergy * * Date:
--- OUTSIDE RECORDS SUMMARY | 2024-11-25 07:30 | XMS_ITS ---
Author Organization [facility] Address [address] [place] [address] Care Team Providers Care Gas Torch Solderer Name Role Phone Annazack Hemant [facility] [phone] REASON FOR VISIT f/u TV US Encounters Encounter Location Date Provider Diagnosis [address] [address] 11/25/2024 Hemant Rangel Plan Of Treatment No Information Progress Notes * Erika MEJIADOB:1960 (64 yo F)Acc No.[id number]:11/25/2024 Progress Notes Patient: Ryan alegre Erika Miller Provider: Ayesha Rangel M.D. :1960 A ge:64 Y S ex:Female Date:11/25/2024 Phone: [facility] [facility] Subjective: * Chief Complaints: * f /u TV US * Ocular Surgical History: Objective: Vision Examination: Care Plan Details* * Electronic signature of Don Rangel on 06/23/2025 at 09:52 AM FLOORLEADER Sign off status: Pending * Provider: Ayesha Rangel M.D. Date: 0 11/25/2024 Generated for Fatimah ng/Fabrittanyg/eTransmitting on: 1 08/23/2024 09:52 AM FLOORLEADER
--- OUTSIDE RECORDS SUMMARY | 2024-12-09 04:00 | XMS_ITS ---
Author Organization [facility] Address [address] [place] [address] Care Team Providers Care On Air Announcer Name Role Phone Hemant Rangel [facility] [phone] Allergies Allergen (clinical drug ingredient) Drug/Non Drug Allergy documented on EMR Reaction Allergy Type Onset Date Status amoxicillin Amoxicillin Unknown Drug Allergy Act geno erythromycin Erythromycin Unknown Drug Allergy A ctive Substance with sulfonamide structure and antibacterial mechanism of action (substance) Sulfa Antibiotics Unknown Drug Allergy Active tetracycline Tetracycline Unknown Drug Allergy A ctive REASON FOR VISIT F/U US, [place] Medical results review Medications Medication SIG (Take, Route, Frequency, Duration) Notes Start Date End Date Status Synthroid 75 MCG Tablet TAKE 1 TABLET (7 5 MCG) BY MOUTH DAILY IN THE MORNING. Oral; Duration: 90 Days Active Raloxifene HCl 60 MG Tablet TAKE 1 TABLE T DAILY Oral; Duration: 90 Days Active Liothyronine Sodium 5 MCG Tablet TAKE 1 TABLET DAILY ON AN EMPTY STOMACH *GREENSTONE* Oral; Duration: 90 Days Active Repatha SureClick 140 MG/ML Solution Auto-injector ADMINISTER 1 ML UNDER THE SKIN EVERY 14 DAYS Subcutaneous; Duration: 28 Days Active Ezetimibe 10 MG Tablet TAKE 1 TABLET TANA LY Oral; Duration: 90 Days Active Encounters Encounter Location Date Provider Diagnosis [address] [address] 12/09/2024 Hemant Rangel Plan Of Treatment No Information Progress Notes * Erika MEJIADOB:1960 (64 yo F)Acc No.[id number]:12/09/2024 Progress Notes Patient: Ryan codey Eriak Miller Provider: Ayesha Rangel M.D. :1960 A ge:64 Y S ex:Female Date:12/09/2024 Phone: Address:[facility] [address], [place], [place] Subjective: * Chief Complaints: * F /U US, myriad results review * Medical History: Glaucoma Graves disease Hormone replacement therapy (HRT) Hypercholesterolemia Hypothyroidism Thyroid disorder Family history of breast cancer Menopausal syndrome No DVT/PE Postmenopausal bleeding Vulvar lesion * Surgical History: cholecystectomy colonoscopy d&c endometrial ablation gallbladder removal hysterectomy lumpectomy, left breast hysteroscopy ovarian-benign mass removed wisdom tooth removal * Family History: M igrated Family History: diagnosed with Breast Cancer, Colon Cancer, Hypertension, High Cholesterol, Heart Disease, Ischemic stroke. Yuan aranda Aunt: diagnosed with Melanoma. Yuan aranda First Cousin: , diagnosed with Breast Cancer in 35. No Cancer Family History: Ovary/Colon/Uterus/Pancreas/Gastric/Prostate/Melanoma/Brain . * Medications: T akingLiothyronine Sodium 5 MCG Tablet TAKE 1 TABLET DAILY ON AN EMPTY STOMACH *GREENSTONE* Oral Ezetimibe 10 MG Tablet TAKE 1 TABLET DAILY Oral Repatha SureClick 140 MG/ML Solution Auto-injector ADMINISTER 1 ML UNDER THE SKIN EVERY 14 DAYS Subcutaneous Synthroid 75 MCG Tablet TAKE 1 TABLET (75 MCG) BY MOUTH DAILY IN THE MORNING. Oral Raloxifene HCl 60 MG Tablet TAKE 1 TABLET DAILY Oral Taking Liothyronine Sodium 5 MCG Tablet TAKE 1 TABLET DAILY ON AN EMPTY STOMACH *GREENSTONE* Oral Taking Ezetimibe 10 MG Tablet TAKE 1 TABLET DAILY Oral Taking Repatha SureClick 140 MG/ML Solution Auto-injector ADMINISTER 1 ML UNDER THE SKIN EVERY 14 DAYS Subcutaneous Taking Synthroid 75 MCG Tablet TAKE 1 TABLET (75 MCG) BY MOUTH DAILY IN THE MORNING. Oral Taking Raloxifene HCl 60 MG Tablet TAKE 1 TABLET DAILY Oral * Allergies: E rythromycinTetracyclineAmoxicillinSulfa Antibiotics Billing Information: * Procedure Codes: * Electronic signature of Don Rangel on 06/23/2025 at 09:51 AM RESEARCH SPEC Sign off status: Pending * Provider: Ayesha Rangel M.D. Date: 12/09/2024 Generated for Fatimah Branch/Tc on: 08/23/2024 09:51 AM RESEARCH SPEC
--- NOTE | ~2025-06-22 | XR_ITS ---
XR abdomen/kub 1V 06/22/2025 10:17 Indication: Renal stones Procedure: KUB Comparison: 06/10/2025 Findings: Status post cholecystectomy. There is a left internal ureteral stent expected position. There are left renal stones. There are right pelvic phleboliths. Nonobstructive bowel gas pattern. Lung bases unremarkable. No acute osseous abnormality. Impression: 1: Left nephrolithiasis. Reviewed, dictated and finalized at location O. ECTOR PACKAGER Impression: 1: Left nephrolithiasis.
--- OUTSIDE RECORDS SUMMARY | 2025-06-23 09:51 | XMS_ITS | Encounter Summary ---
Author Organization [facility] Address [address] [place] [address] Care Team Providers Care Barker Operator Name Role Phone Carmen Robin MD Primary Care Provider [phone] Encounter Details Date Type Department Care Team (Late Contact Info) Description 06/21/1999 Outpatient Historical [facility] Internal Medicine - [facility] [address] [facility] [address] [place] [address] Wili Garcia MD [address] [facility] [address] [place] [address] Social History Tobacco Use Types Packs/Day Years Used Date Smoking Tobacco: Never Assessed Comments Unknown Sex and Gender Information Value Date Recorded Sex Assigned at Not on file Legal Sex Female 3:30 AM PATIENT ACCESS SPECIALIST Gender Identity Not on file Sexual Orientation Not on file documented as of this encounter Plan of Treatment Upcoming Encounters Date Type Department Care Team (Late st Contact Info) Description 10/24/2025 11:20 AM CDT Office Visit [facility] Primary Care [address] [address] Carmen Robin MD [address] [place] [phone] documented as of this encounter Visit Diagnoses Not on filedocumented in this encounter Care Teams Barker Operator Relationship Specialty Start Date End Date Carmen Robin MD [address] [place] [phone] PCP - General Family Practice 10/16/23 documented as of this encounter
--- OUTSIDE RECORDS SUMMARY | 2025-06-23 09:51 | XMS_ITS | Clinical Summary ---
Author Organization [facility] Address [address] [place] [address] Care Team Providers Care Ecommerce Marketing Manager Name Role Phone Unavailable Primary Care [...] on file Legal Sex Female 11:54 AM GOVERNMENT AFFAIRS RESEARCHER Gender Identity Not on file Sexual Orientation [...]
--- OUTSIDE RECORDS SUMMARY | 2025-06-23 09:51 | XMS_ITS | Encounter Summary ---
Author Organization [facility] Address [address] [place] [address] Care Team Providers Care Yoghurt Maker Name Role Phone Carmen Robin MD Primary Care Provider [phone] Encounter Details Date Type Department Care Team (Late st Contact Info) Description 05/30/2000 Outpatient Historical [facility] Internal Medicine - [facility] [address] [facility] [address] [place] [address] Wili Garcia MD [address] [facility] [address] [place] [address] Social History Tobacco Use Types Packs/Day Years Used Date Smoking Tobacco: Never Assessed Comments Unknown Sex and Gender Information Value Date Recorded Sex Assigned at Not on file Legal Sex Female 3:30 AM ALLIGATOR HUNTER Gender Identity Not on file Sexual Orientation Not on file documented as of this encounter Plan of Treatment Upcoming Encounters Date Type Department Care Team (Late st Contact Info) Description 10/24/2025 11:20 AM CDT Office Visit [facility] Primary Care [address] [address] Carmen Robin MD [address] [place] [phone] documented as of this encounter Visit Diagnoses Not on filedocumented in this encounter Care Teams Yoghurt Maker Relationship Specialty Start Date End Date Carmen Robin MD [address] [place] [phone] PCP - General Family Practice 10/16/23 documented as of this encounter
--- OUTSIDE RECORDS SUMMARY | 2025-06-23 09:51 | XMS_ITS | Encounter Summary ---
Author Organization [facility] Address [address] [place] [address] Care Team Providers Care Gunstock Repairer Name Role Phone Carmen Robin MD Primary Care Provider [phone] Encounter Details Date Type Department Care Team (Late Contact Info) Description 09/20/[address] [facility] Internal Medicine - [facility] [address] [facility] [address] [place] [address] Wili Garcia MD [address] [facility] [address] [place] [address] Social History Tobacco Use Types Packs/Day Years Used Date Smoking Tobacco: Never Assessed Comments Unknown Sex and Gender Information Value Date Recorded Sex Assigned at Not on file Legal Sex Female 3:30 AM MAINSPRING FORMER Gender Identity Not on file Sexual Orientation Not on file documented as of this encounter Plan of Treatment Upcoming Encounters Date Type Department Care Team (Late st Contact Info) Description 10/24/2025 11:20 AM CDT Office Visit [facility] Primary Care [address] [address] Carmen Robin MD [address] [place] [phone] documented as of this encounter Visit Diagnoses Not on filedocumented in this encounter Care Teams Gunstock Repairer Relationship Specialty Start Date End Date Carmen Robin MD [address] [place] [phone] PCP - General Family Practice 10/16/23 documented as of this encounter
--- OUTSIDE RECORDS SUMMARY | 2025-06-23 09:51 | XMS_ITS | Clinical Summary ---
Author Organization [facility] Address [address] [place] [address] Care Team Providers Care Cake Icer And Packer Name Role Phone Carmen Robin MD Primary Care Provider [phone] Allergies Active Allergy Reactions Criticality Noted Date Comments Amoxicillin Unknown 09/07/2012 Cephalexin Rash Low 10/20/2014 Erythromycin Unknown 09/07/2012 Sulfa (Sulfonamide Antibiotics) Unknown 08/19 Tetracycline Unknown 09/07/2012 Medications cholecalcifero l, vitamin D3, 1,000 unit Take 2,000 Units [...] (1,000 mg) by mouth daily. 3 Active mv,Ca,min-foli c acid-vit K1 (One-A-Day Women's 50 Plus) 400-20 mcg Tablet Take 1 Tablet by mouth daily. 3 Active coenzyme q-10 (UBIQUINOL) 200 mg Capsule Take 0.5 Capsules (100 mg) by mouth daily. 3 Active zinc gluconate 50 mg Tablet Take 1 Tablet (50 mg) by mouth daily. 3 Active antiox. no.10-lsek1d-k ut-reji (I-Caps) 280-10-2 mg Capsule Take 1 Capsule [...] mg-10 mcg (400 unit) Tablet 4 Active DOCOSAHEXAENOI C ACID ORAL Active Synthroid 75 mcg tablet Take 1 Tablet (75 mcg) by mouth daily in the morning. 100 Tablet 3 5 Active Repatha Syringe 140 mg/mL Syringe ADMINISTER 1 ML UNDER THE SKIN EVERY 14 DAYS 5 Active liothyronine (CYTOMEL) 5 mcg Tablet TAKE 1 AND 1/2 TABLETS DAILY ON AN EMPTY STOMACH *GREENSTONE/KATIE N* 5 Active raloxifene (EVISTA) 60 mg tabletIndicati ons:Osteopenia of multiple sites Take 1 Tablet (60 mg) by mouth daily. 90 Tablet 3 5 Active raloxifene (EVISTA) 60 mg tabletIndicati ons:Osteopenia of multiple sites TAKE 1 TABLET DAILY. 90 Tablet 3 5 025 Discontin ued([facility]) Hospital, Clinic, or Other Facility Administered Medication Ordered Dose Route Frequency Start Date End Date Status evolocumab (REPATHA) 140 mg/mL injection 140 mgIndications:Hyperlip idemia, unspecified hyperlipidemia type 140 mg subCUT ONE TIME ONLY 06/03/2025 06/03/2025 En ded Active Problems Problem Noted Date Diagnosed Date Atherosclerosis of [place] co ronary artery of [place] heart without angina pectoris 10/16/2023 Punctate keratopathy [...] - Early glare symptoms - BAT to 2030 OD and 20/25 OS. Not a surgical [...] Encounters Date Type Department Care Team Description 06/20/2025 Abstract [facility] [address] [place] [address] Carmen Robin MD 06/17/2025 Refill [facility] [address] [place] [address] Carmen Robin MD Osteopenia of multiple sites 06/14/2025 External Device Data ST[facility] ABSTRACTION Provider, Abstract 06/02/2025 1:30 PM CDT Clinical Support [facility] [address] [place] [address] Hyperlipidemia, unspecified hyperlipidemia type (Primary Dx) 05/31/2025 Telephone [facility] [address] [place] [address] Carmen Robin MD Needs Orders Written 05/25/2025 8:40 AM CDT Office Visit [facility] [address] [place] [address] Carmen Robin MD Family history of breast cancer (Primary Dx); Change in voice; Poor balance 05/16/2025 Results Follow-Up [facility] [address] [place] [phone] Peggy Feldman PA-C COLON CANCER SCREEN, STOOL DNA 05/03/2025 External Device Data STL ABSTRACTION Provider, Abstract 04/26/2025 Telephone [facility] [address] [place] [phone] Carmen Robin MD Primary Care Outreach 04/19/2025 External Device Data STL ABSTRACTION Provider, Abstract 04/12/2025 External Device Data STL ABSTRACTION Provider, Abstract from Last 3 Months Immunizations Immunization Administration Dates Next Due (ADACEL/BOOSTRIX)(10 YR UP) TDAP VACCINE, 0.5ML, IM 11/09/2021 (PFIZER)(12 YR UP) COVID-19 VACCINE - EMERGENCY USE AUTHORIZATION, MRNA, [id number](PF) 30 MCG/0.3 ML IM SUSP 01/07/2022 (PREVNAR 20)(6 WKS UP) PNEUM OCOCCAL CONJUGATE VACCINE 20-VALENT (PCV20), POLYSACCHARIDE [id number] CONJUGATE, ADJUVANT 0.5 ML (PF) IM 10/18/2024 (SHINGRIX)(50 YRS UP) ZOSTER VACCINE RECOMBINANT, 0.5 ML, IM 11/22/2024,05/30/2024 Family History Medical History Relation Name Comments Healthy Brother Yifan (1/2 brother) Watches c holesterol High Cholesterol Brother Yifan (1/2 brother) High cholestetol is under control. Heart Disease Father Gene of a hear t attack at 58. High Cholesterol Father Gene of hea rt attack at age 58. Breast Cancer Maternal Aunt Breast Cancer Maternal Cousin Kidney Disease Maternal Grandfather Juan of blocked kidneys in 1958. Hypertension Maternal Grandmother Zhanna High BP Stroke [...] ired early bed rest. Then, water broke 11-26-59, but not due until 09-03-59. Skin Cancer Mother Edilson MOHS Surgery fo r squamous cell carcinoma (left leg). Web Support Engineer also removed a squamous cell carcinoma (clean margins) on rt arm and Basal cell rt leg. Thyroid Disease Mother Edilson Goiter remov ed and parathyroid. Colon Cancer Other Heart Disease Paternal Grandfather Juan o f massive heart attack at age 79. Other Paternal Grandmother Hypertension Son Relation Name Status Comments Brother Yifan (1/2 brother) Alive Father Gene (Age 58) [place] Maternal Aunt Alive Maternal Cousin Maternal Grandfather [...] on file Legal Sex Female 3:30 AM LAND TITLE EXAMINER Gender Identity Not on file Sexual Orientation [...] Description 10/24/2025 11:20 AM CDT Office Visit [facility] [place] [address] [place] [address] Carmen Robin MD [address] [place] [address] Health Maintenance Due Date Last Done Comments FIT/FOBT Q 1 YEAR (AUTO ORDER) 1977 FIT/FOBT Q 1 year 2004 Flex Sig/CT Colonography Q 5 years 2004 RSV VACCINE (60+ or ) (1 - Risk 50-74 years 1-dose series) 2009 COLORECTAL CANCER SCREENING (AUTO ORDER) 05/10/2023 05/10/2013 COLORECTAL SCREENING 05/15/2023 05/15/2013, 05/10/20 13 INFLUENZA VACCINE (#1) 2025 COVID-19 Vaccine (2024-2 6 season) 2025 08/06/2023, 01/07/2022, 10/28/2020, Additional [...] d or Tdap) 11/10/2031 11/09/2021 Medicare Advantage ([place]) Preventative Visit/Annual Wellness Visit Completed 10/18/2024, 10/16/2023, 11/11/2022, Additional history exists PNEUMOCOCCAL VACCINE 50+ YEARS Completed 10/18/2024 ZOSTER VACCINE Completed 11/22/2024, 05/30/2024 Procedures Procedure Name Priority Date/Time Associated Diagnosis Comments COLON CANCER SCREEN, STOOL DNA Routine 05/11/2025 3:01 PM CDT Colon cancer screening XR DEXA BONE DENSITY AXIAL 1 OR MORE SITES Routine 08/30/2024 8:53 AM LAND TITLE EXAMINER Osteopenia of multiple sites MAMMO 3D LARRY SCREEN BILAT W OR WO CAD Routine 08/30/2024 Screening mammogram, encounter for from Last 3 Months or Most Recently Relevant to Health Maintenance Results * COLON CANCER SCREEN, STOOL DNA (05/11/2025 3:01 PM CDT) COLOGUARD RESULT Negative Negative [facility] Comment: The Cologuard (TM) test was [...] (Devonte Addison al, N Engl J Med 2014;370(14):1078-8237) The normal value (reference range) for this assay is negative. COLOGUARD RE-SCREENING RECOMMENDATION: Periodic colorectal cancer screening is an important part of preventive healthcare for asymptomatic individuals at average risk for colorectal cancer. Following a negative Cologuard result, the [employer] [place] [employer] and U.S. Multi-Society Task Force screening guidelines recommend a Cologuard re-screening interval of 3 years. References: [employer] [place] [employer] Guideline for Colorectal Cancer Screening: https://www.cancer.org/cancer/yhkqs-xwtcvi-wtppkk/kppfofxwi-hbpebrdoe-zhbfvkp/ac s-rec ommendations.html.; Demarcus DK, Gayle CR, Soila MCNAMARA, Colorectal Cancer Screening: Recommendations for Physicians and Patients from the U.S. Multi-Society Task Force on Colorectal Cancer Screening , Am J Gastroenterology 2017; 112:1541-1214. TEST DESCRIPTION: Composite algorithmic analysis of stool [...] (Devonte Addison al, N Engl J Med 2014;370(14):6540-7750.) Cologuard may produce a false negative or false positive result (no colorectal cancer or precancerous polyp present at colonoscopy follow up). A negative Cologuard test result does not guarantee the absence of CRC or advanced adenoma (pre-cancer). The current Cologuard screening interval is every 3 years. ([employer] [place] [employer] and U.S. Multi-Society Task Force). Cologuard performance data in a 10,000 patient pivotal study using colonoscopy as the reference method can be accessed at the following location: www.TapMetrics.com/results. Additional description of the Cologuard test process, warnings and precautions can be found at www.[employer].com. Stool STOOL SPECIMEN / Unknown 05/11/2025 3:01 PM CDT 05/12/2025 5:24 PM CDT us Carmen Robin MD BODY FLUIDS AND STOOLS Final Result [employer] CLIA # [id number] [address] , [address] [place] [address] * XR DEXA BONE DENSITY AXIAL 1 OR MORE SITES (08/30/2024 8:53 AM LAND TITLE EXAMINER) T-SCORE FEMUR [facility] T-SCORE FEMUR (LEFT) [facility] T-SCORE FEMUR (RIGHT) [facility] T-SCORE FEMUR NECK [facility] T-SCORE FEMORAL NECK (LEFT) [facility] T-SCORE FEMORAL NECK (RIGHT) [facility] T-SCORE HEEL [facility] T-SCORE HEEL (LEFT) [facility] T-SCORE HEEL (RIGHT[facility] T-SCORE HIP [facility] T-SCORE HIP (LEFT) [facility] T-SCORE HIP (RIGHT) [facility] T-SCORE WRIST [facility] T-SCORE WRIST (LEFT) [facility] T-SCORE WRIST (RIGHT) [facility] T-SCORE SPINE [facility] Anatomical Region Laterality Modality Other 08/30/2024 8:53 AM LAND TITLE EXAMINER us Carmen Robin MD DIAGNOSTIC IMAGING ORDERABLES Edited Result - Final * MAMMO 3D LARRY SCREEN BILAT W OR WO CAD (08/30/2024) Anatomical Region Laterality Modality Breast Bilateral Mammography 08/30/2024 us Carmen Robin MD MAMMO ORDERABLES Final Result from Last 3 Months or Most Recently Relevant to Health Maintenance Insurance [facility] [email or web address]] [facility] Address: [facility] [id number] [place] [id number] Advance Directives For more information, please contact: [phone] * Full Code (Latest Code Status on File) Date Activated Date Inactivated Comments 05/10/2013 12:33 PM 05/10/2013 4:43 PM Care Teams Cake Icer And Packer Relationship Specialty Start Date End Date Carmen Robin MD [address] [place] [phone] PCP - General Family Practice 10/16/23
--- OUTSIDE RECORDS SUMMARY | 2025-06-23 09:51 | XMS_ITS | Clinical Summary ---
Author Organization [facility] Address [address] [place] [address] Care Team Providers Care Pattern Room Attendant Name Role Phone Unavailable Primary Care Provider Unavailabl e Source Comments [facility],non-owned Affiliates and Associated Physician Practices is amultiple site organization consisting of ambulatory clinics and hospital sitesin [place], [place], [place] and [place]. This disclosure is being madepursuant to the Care Everywhere program and may not contain all information available regarding this patient. Last updated 18.[facility] Social History Tobacco Use Types Packs/Day Years Used Date Smoking Tobacco: Never Assessed Comments Unknown Sex and Gender Information Value Date Recorded Sex Assigned at Not on file Legal Sex Female 6:26 AM NUISANCE ANIMAL DAMAGE CONTROL AGENT Gender Identity Not on file Sexual Orientation [...]
--- OUTSIDE RECORDS SUMMARY | 2025-06-23 09:51 | XMS_ITS | Encounter Summary ---
Author Organization [facility] Address [address] [place] [address] Care Team Providers Care Tape Cutting Machine Operator Name Role Phone Carmen Robin MD Primary Care Provider [phone] Encounter Details Date Type Department Care Team (Late Contact Info) Description 09/01/2024 Results Follow-Up [facility] [address] [place] [address] Carmen Robin MD [address] [place] [phone] MAMMO 3D LARRY SCREEN BILAT W [...] on file Legal Sex Female 3:30 AM OUTSIDE B2B SALES Gender Identity Not on file Sexual Orientation Not on file Occupation Industry Job Start Date Job End Date Not on file Not on file Not on file Not on file documented as of this encounter Plan of Treatment Upcoming Encounters Date Type Department Care Team (Late st Contact Info) Description 10/24/2025 11:20 AM CDT Office Visit [facility] [address] [place] [address] Carmen Robin MD [address] [place] [phone] documented as of this encounter Visit Diagnoses Not on filedocumented in this encounter Care Teams Tape Cutting Machine Operator Relationship Specialty Start Date End Date Carmen Robin MD [address] [place] [phone] PCP - General Family Practice 10/16/23 documented as of this encounter
--- OUTSIDE RECORDS SUMMARY | 2025-06-23 09:51 | XMS_ITS | Encounter Summary ---
Author Organization [facility] Address [address] [place] [address] Care Team Providers Care Commodity Specialist Name Role Phone Carmen Robin MD Primary Care Provider [phone] Encounter Details Date Type Department Care Team (Late st Contact Info) Description 02/07/2000 Outpatient Historical [facility] Internal Medicine - [address] [place] [address] Pablo Grider Jr., MD NO ADDRESS ON FILE Social History Tobacco Use Types Packs/Day Years Used Date Smoking Tobacco: Never Assessed Comments Unknown Sex and Gender Information Value Date Recorded Sex Assigned at Not on file Legal Sex Female 3:30 AM MIRROR SILVERER Gender Identity Not on file Sexual Orientation Not on file documented as of this encounter Plan of Treatment Upcoming Encounters Date Type Department Care Team (Late st Contact Info) Description 10/24/2025 11:20 AM CDT Office Visit [facility] Primary Care [address] [address] Carmen Robin MD [address] [place] [phone] documented as of this encounter Visit Diagnoses Not on filedocumented in this encounter Care Teams Commodity Specialist Relationship Specialty Start Date End Date Carmen Robin MD [address] [place] [phone] PCP - General Family Practice 10/16/23 documented as of this encounter
--- OUTSIDE RECORDS SUMMARY | 2025-06-23 09:51 | XMS_ITS | Encounter Summary ---
Author Organization [facility] Address [address] [place] [address] Care Team Providers Care English Professor Name Role Phone Carmen Robin MD Primary Care Provider [phone] Encounter Details Date Type Department Care Team (Late Contact Info) Description 07/05/1999 Outpatient Historical [facility] Internal Medicine - [facility] [address] [facility] [address] [place] [address] Wili Garcia MD [address] [facility] [address] [place] [address] Social History Tobacco Use Types Packs/Day Years Used Date Smoking Tobacco: Never Assessed Comments Unknown Sex and Gender Information Value Date Recorded Sex Assigned at Not on file 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 Gender Identity Not on file Sexual Orientation Not on file documented as of this encounter Plan of Treatment Upcoming Encounters Date Type Department Care Team (Late st Contact Info) Description 10/24/2025 11:20 AM CDT Office Visit [facility] Primary Care [address] [address] Carmen Robin MD [address] [place] [phone] documented as of this encounter Visit Diagnoses Not on filedocumented in this encounter Care Teams English Professor Relationship Specialty Start Date End Date Carmen Robin MD [address] [place] [phone] PCP - General Family Practice 10/16/23 documented as of this encounter
--- OUTSIDE RECORDS SUMMARY | 2025-06-23 09:51 | XMS_ITS | Patient Health Record ---
Author Organization [facility] Address [address] [place], [place] [address] Care Team Providers Care Pit Recorder Name Role Phone Hemant Rangel Unavailable [phone] Migration, Provider Unavailable Unavailable Allergies Allergen (clinical [...] THINPREP TIS PAP W/REFL HPV mRNA E6/E7 (35634) Reviewed date:11/23/2024 02:35:21 PM Interpretation: Performing Lab[place] [place] [address] [facility] [facility] Notes/Report: FASTING: UNKNOWN CLINICAL INFORMATION: N Rou megha exam LMP: N NONE GIVEN PREV. PAP: N NONE GIVEN PREV. BX: N NONE GIVEN SOURCE: N None given STATEMENT OF ADEQUACY: N Satisfactory for evaluation. Endocervical/transformation zone component present. INTERPRETATION/RESULT: N Cytology Results: Negative for intraepithelial lesion or malignancy. COMMENT: N This Pap test has been evaluated with computer assisted technology. CAN VACUUM TESTER: Aster TAYLOR, CT(ASCP) CT screening location: [place] [address] [place] [address] COMMENT EXPLANATORY NOTE: The Pap is a screening test for cervical cancer. It is not a diagnostic test and is subject to false negative and false positive results. It is most reliable when a satisfactory sample, regularly obtained, is submitted with relevant clinical findings and history, and when the Pap result is evaluated along with historic and current clinical information. [place] [id number] Reviewed date:12/28/2024 01:58:02 PM Interpretation: Performing Lab: [...] W/U Status Risk Notes Problem Postmenopausal bleeding (31349645) Postmenopausal bleeding (N95.0) Active confirmed Problem Pure hypercholesterolemia (585725142) Pure hypercholesterolem ia, unspecified (E78.00) Active confirmed Problem Menopausal syndrome (536197183) Menopausal syndrome (N95.1) Active confirmed Problem Screening for malignant neoplasm of breast (588945202) Breast cancer screening, high risk patient (Z12.39) Active confirmed Myriad RiskScore : Lifetime Risk = 26.4%; 5 Year Risk = 10.0% Problem Family history of breast cancer (474790653) Family history of breast cancer (Z80.3) Active confirmed Problem Graves disease (918335555) Graves disease (E05.00) Active confirmed Problem Hormone replacement therapy (316809164) Hormone replacement therapy (HRT) (Z79.890) Active confirmed Problem Glaucoma (93373186) Glaucoma (H40.9) Active con firmed Problem Hypercholesterolemia (40123647) Hypercholesterolem ia (272.0) Active confirmed Problem Hypothyroidism (64990790) Hypothyroidism (E03.9) Active confirmed Problem Thyroid disorder (64752271) Thyroid disorder (E07.9) Active confirmed Problem Lesion of vulva (290167099) Vulvar lesion (N90.89) Active confirmed Vital Signs Height-cm 162.56 cm 11/18/2024 Blood pressure diastolic 80 mm Hg 11/18/2024 Weight-kg 64.86 kg 11/18/2024 Height 5'4'' in 11/18/2024 Blood pressure systolic 128 mm Hg 11/18/2024 Weight 143 lbs 11/18/2024 BMI 24.54 kg/m2 11/18/2024 Encounters Encounter Location Date Provider Diagnosis [address] [address] 11/18/2024 Hemant Rangel Routine gynecologica l examination Z01.419 ; Family history of breast cancer Z80.3 ; Pure hypercholesterolemia, unspecified E78.00 ; Hypothyroidism E03.9 ; Graves disease E05.00 ; Hormone replacement therapy (HRT) Z79.890 ; Postmenopausal bleeding N95.0 and Vulvar lesion N90.[address] [address] 12/24/2024 Hemant Rangel Postmenopausal bleeding 627.1 and Postmenopausal bleeding N95.[address] [address] 12/24/2024 Hemant Rangel Postmenopausal bleeding N95.0 ; Menopausal syndrome N95.1 ; Hormone replacement therapy (HRT) Z79.890 ; Breast cancer screening, high risk patient Z12.39 and Family history of breast cancer Z80.3 [facility] [address] [place], [place] [id number] 11/13/2024 Provider Migration [facility] [address] [place], [place] [id number] 11/14/2024 Provider Migration Assessments Encounter Date Diagnosis (ICD Code) Assessment Notes Treatment Notes Treatment Clinical Notes Section Notes 12/24/2024 Postmenopausal bleeding (ICD9-CM - 627.1) 12/24/2024 Postmenopausal bleeding (ICD-10 - N95.0) 12/24/2024 Postmenopausal bleeding (ICD-10 - N95.0) Stop Pellets. Stop HRT Track Bleeding and let us know if continues. 12/24/2024 Menopausal syndrome (ICD-10 - N95.1) 11/18/2024 Family history of breast cancer (ICD-10 - Z80.3) Direct Patient to [employer] website link to see if she meets criteria for CGX testing 11/18/2024 Routine gynecological examination (ICD-10 - Z01.419) 11/18/2024 Pure hypercholesterolemi a, unspecified (ICD-10 - E78.00) 12/24/2024 Hormone replacement therapy (HRT) (ICD-10 - Z79.890) 12/24/2024 Breast cancer screening, high risk patient (ICD-10 - Z12.39) Myriad RiskScore: Lifetime Risk = 26.4%; 5 Year Risk = 10.0% Breast Imaging q 6 months. Raloxifene for elevated 5 year BC Risk 11/18/2024 Hypothyroidism (ICD-10 - E03.9) 12/24/2024 Family history of breast cancer (ICD-10 - Z80.3) 11/18/2024 Graves disease (ICD-10 - E05.00) 11/18/2024 Hormone replacement therapy (HRT) (ICD-10 - Z79.890) 11/18/2024 Postmenopausal bleeding (ICD-10 - N95.0) RTO for SIS 11/18/2024 Vulvar lesion (ICD-10 - N90.89) Release of info to Dr Zabala for 08/06. 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 Erika believes it is smaller Plan Of Treatment Pending Test Test Name Order Date AMERIPATH THINPREP TIS RFX HPV E6/E7,ASC ABOVE ([id number]=) 11/18/2024 Insurance Providers Payer Name Payer Address Payer Phone Subscriber Number Group Number Insured Name Patient Relationship to Insured Coverage Start Date Coverage End Date [employer] [address] [place], [place] [id number] Erika Allen Self - patient is the [...] Z12.39 Family history of breast cancer Z80.3 [employer] 48 Gene Panel = negat geno; VUS X2; Myriad RiskScore: Lifetime Risk = 26.4%; 5 Year Risk = 10.0% Surgical History Surgery Date(Month/Year) cholecystectomy colonoscopy d&c endometrial ablation gallbladder removal hysterectomy lumpectomy, left breast hysteroscopy ovarian-benign mass removed wisdom tooth removal
--- OUTSIDE RECORDS SUMMARY | 2025-06-23 09:51 | XMS_ITS | Clinical Summary ---
Author Organization [facility] Address [address] [facility] [place] [address] Care Team Providers Care Furniture Technician Name Role Phone Pablo Morales MD Primary Care Provider [phone] Allergies Active Allergy Reactions Criticality Noted Date Comments Amoxicillin Cephalexin Rash Medium 01/30/2018 Erythromycin Unknown 09/07/2012 Penicillins Sulfa (Sulfonamide Antibiotics) Rash Medium 01/16 Tetracycline Medications aspirin 81 mg tablet Active omega 8-vaz-rdb-fish oil 100-160-1,000 mg capsule Active SYNTHROID 75 mcg tablet 8 Active liothyronine (CYTOMEL) 5 mcg tablet 8 Active multivitamin tabletIndicatio ns:Vitamin Deficiency Prevention Active ascorbic acid (VITAMIN C) 500 mg tablet,chewable Acti ve vitamin E (AQUASOL E) 100 unit capsule Active vit D3-vit C-qdnxxxdri-qmh s [phone] qjsa-ehk-aj-mg tablet Take by mouth. Activ e coenzyme [...] hours as needed 3 Active Ca carb-D3-mag jy-mrr-lghe-Zn (Caltrate-D3 Plus Minerals) 300 mg-20 mcg- 25 [...] DFE Assessment & Plan (08/02/2024 4:18 PM CRITICAL CARE REGISTERED NURSE): POAG OU Denies concerns IOP at goal [...] concerns Assessment & Plan (10/23/2020 6:31 PM CRITICAL CARE REGISTERED NURSE): HVF remains normal OCT with concern for [...] OU Assessment & Plan (07/06/2019 10:44 AM CRITICAL CARE REGISTERED NURSE): No e/o AMD OU Assessment & Plan [...] VS Assessment & Plan (08/02/2024 4:18 PM CRITICAL CARE REGISTERED NURSE): Not yet VS Assessment & Plan (06/02/2023 [...] time Assessment & Plan (07/06/2019 10:28 AM CRITICAL CARE REGISTERED NURSE): Mild, NVS Observe Assessment & Plan (06/10/2019 [...] on file Legal Sex Female 8:22 PM CRITICAL CARE REGISTERED NURSE Gender Identity Female 01/26/2025 10:40 PM CDT Sexual Orientation Straight 01/26/2025 10 :40 PM CDT Occupation Industry Job Start Date Job End Date Retired Not on file Not on file Not on file Plan of Treatment Health [...] 11/09/2021 Zoster Vaccine Completed 11/22/2024, 05/30/2024 Insurance [facility] Address: [facility] [id number] [place] [id number] Care Teams Furniture Technician Relationship Specialty Start Date End Date Pablo Morales MD PCP - General 12/06/16
--- OUTSIDE RECORDS SUMMARY | 2025-06-23 09:52 | XMS_ITS | Patient Health Record ---
Author Organization [facility] Address [address] [place], [place] [id number] Care Team Providers Care Shear Grinder Operator Name Role Phone JAMILAH ROMAN Unavailable [phone] Reason For Referral No Information Medications Medication SIG (Take, Route, Frequency, Duration) Notes Start Date End Date Status Aspirin 81 MG Tablet Chewable Oral aspirin 81 MG Chewable TabletOriginal Medicationaspirin 81 MG Chewable Tablet 09/10/19 17 Active lutein 25 MG / zeaxanthin 5 MG Oral Capsule ORAL lutein 25 MG / zeaxanthin 5 MG Oral CapsuleOriginal Medicationlutein 25 MG / zeaxanthin 5 MG Oral Capsule *Reorder from People to Remember for eRx and Interaction Alerts* 09/10/19 17 Active levothyroxine sodium 0.088 MG Oral Tablet [Synthroid] ORAL levothyroxine sodium 0.088 M G Oral Tablet [Synthroid]Original Medicationlevothyroxine sodium 0.088 MG Oral Tablet [Synthroid] *Reorder from People to Remember for eRx and Interaction Alerts* 09/10/19 17 Active Risedronate Sodium 150 MG Oral Tablet ORAL risedronate sodium 150 MG Oral TabletOriginal Medicationrisedronate sodium 150 MG Oral Tablet *Reorder from People to Remember for eRx and Interaction Alerts* 09/10/19 17 Active testosterone 75 MG Drug Implant [Testopel] testosterone 75 MG Drug Implant [Testopel]Original Medicationtestosterone 75 MG Drug Implant [Testopel] *Reorder from People to Remember for eRx and Interaction Alerts* 09/10/19 17 Active Progesterone 100 MG Vaginal Insert VAGINAL progesterone 100 MG Vaginal InsertOriginal Medicationprogesterone 100 MG Vaginal Insert *Reorder from People to Remember for eRx and Interaction Alerts* 09/10/19 17 Active rosuvastatin calcium 10 MG Oral Tablet [Crestor] ORAL rosuvastatin calcium 10 MG Oral Tablet [Crestor]Original Medicationrosuvastatin calcium 10 MG Oral Tablet [Crestor] *Reorder from [employer] for eRx and Interaction Alerts* 09/10/19 17 Active cholecalciferol 0.025 MG Oral Capsule ORAL cholecalciferol 0.025 MG Ora l CapsuleOriginal Medicationcholecalciferol 0.025 MG Oral Capsule *Reorder from People to Remember for eRx and Interaction Alerts* 09/10/19 17 Active calcium carbonate 600 MG / cholecalciferol 125 UNT Oral Tablet ORAL calcium carbonate 600 MG / cholecalciferol 125 UNT Oral TabletOriginal Medicationcalcium carbonate 600 MG / cholecalciferol 125 UNT Oral Tablet *Reorder from People to Remember for eRx and Interaction Alerts* 09/10/19 17 Active estradiol valerate 10 MG/ML Injectable Solution estradiol valerate 10 MG/ML Injectable SolutionOriginal Medicationestradiol valerate 10 MG/ML Injectable Solution *Reorder from People to Remember for eRx and Interaction Alerts* 09/10/19 17 Active docosaenoic acid 200 MG / eicosapentaenoic acid 300 MG Oral Capsule ORAL docosaenoic acid 200 MG / eicosapentaenoic acid 300 MG Oral CapsuleOriginal Medicationdocosaenoic acid 200 MG / eicosapentaenoic acid 300 MG Oral Capsule *Reorder from People to Remember for eRx and Interaction Alerts* 09/10/19 17 Active acetaminophen 325 MG Oral Tablet [Tylenol] ORAL acetaminophen 325 MG Oral Tablet [Tylenol]Original Medicationacetaminophen 325 MG Oral Tablet [Tylenol] *Reorder from People to Remember for eRx and Interaction Alerts* 09/10/19 17 Active Ubiquinol 200 MG Oral Capsule ORAL ubiquinol 200 MG Oral CapsuleOriginal Medicationubiquinol 200 MG Oral Capsule *Reorder from People to Remember for eRx and Interaction Alerts* 09/10/19 17 Active vitamin E 268 MG Oral Capsule ORAL vitamin E 268 MG Oral CapsuleOriginal Medicationvitamin E 268 MG Oral Capsule *Reorder from People to Remember for eRx and Interaction Alerts* 09/10/19 17 Active ascorbic acid 500 MG Extended Release Oral Capsule ORAL ascorbic acid 500 MG Extende d Release Oral CapsuleOriginal Medicationascorbic acid 500 MG Extended Release Oral Capsule *Reorder from People to Remember for eRx and Interaction Alerts* 09/10/19 17 Active Social History Social History Additional Details Category Social Info Options Details Migrated Social History Migrated Social History Alcohol intake : , History of tobacco use : , Smoking Status : Never smoked Plan Of Treatment No Information Insurance Providers Payer Name Payer Address Payer Phone Subscriber Number Group Number Insured Name Patient Relationship to Insured Coverage Start Date Coverage End Date [facility] [address] [place], [place] [id number] YANI MEJIA Self - patient is the insured
== END 2025-06-22 10:02 | disposition home or self-care (01) ==
PROVIDERS: Referring Provider Urology; Visit Provider Urology
DX: N20.0 Calculus of kidney (principal)
CPT/HCPCS: 74018